=== PATIENT | female | born 1995 | race Caucasian/White ===

== ENCOUNTER 2023-10-29 07:30 | Inpatient (IN) ==
--- OUTSIDE RECORDS SUMMARY | 2023-10-29 07:37 | External Medical Summary | Summary of Care ---
Author Name Unknown Organization [facility] Address [address] [place] [address] Phone [phone] Care Team Providers Care Edger Tailer Name Role Phone Wilmer Jones MD Primary Care Provider +1- [phone] Encounter Details Date Type Department Care Team (Late st Contact Info) Description 10/21/2023 Refill Gynecology/Obstetrics [facility] [address] [place], [place] [id number] Chantale Cowart MD [address] [facility] [place] [address] Allergies Active Allergy Reactions Criticality Noted Date Comments Morphine Hives 07/14/2023 documented as of this encounter (statuses as of 10/21/2023) Medications Medication Sig Dispensed Refills Start Date End Date Status Aspirin 81 MG Oral Tablet Delayed Release (Aspirin 81) Take 1 Tablet by mouth in the morning. 0 Active Famotidine 20 MG Oral Tablet (Pepcid) Take 1 Tablet by mouth in the morning and 1 Tablet before bedtime. 0 Active Calcium Carbonate Antacid 500 MG Oral Tablet Chewable (Tums) Take 1 Tablet by mouth in the morning. 0 Active Adult Gummy/DHA/FA 0.4-25 MG Oral Tablet Chewable Take by mouth. 0 Active Breast PumpIndications:[place] st feeding status of mother BREAST FEEDING STATUS OF MOTHER Z39.1 AMANDA 11/12/23 1 Each 0 08/25/2023 Active Bsfasactyi-KQLB-Zdzj -Cod 94-638-86-30 MG Oral Capsule (Fioricet/Codeine) Take 30 mg of opiate by mouth as needed for Headache. 10 Capsule 0 10/21/2023 Active documented as of this encounter (statuses as of 10/21/2023) Active Problems Problem Noted Date Diagnosed Date GBS (group B streptococcus) infection 10/20/2023 Gestational proteinuria, antepartum 10/10/2023 Estimated Date of Delivery Comme nts Yes 11/12/2023 Based on last me nstrual period of 02/05/2023 (Exact Date) documented as of this encounter (statuses as of 10/21/2023) Immunizations Name Administration Dates Next Due TDAP (age 10 and older)(Boostrix) 08/25/2023 documented as of this encounter Social History Tobacco Use Types Packs/Day Years Used Date Smoking Tobacco: Never Smokeless Tobacco: Never Alcohol Use Standard Drinks/Week Comments Not Currently 0 (1 standard drink = 0.6 oz pur e alcohol) Hunger Vital Sign Answer Date Recorded Within the past 12 months, y ou worried that your food would run out before you got the money to buy more. Never true 07/10/20 23 Within the past 12 months, t he food you bought just didn't last and you didn't have money to get more. Never true 07/10/2023 [place] Depression Scale Answer Date Recorded [place] Depression Scale Total 2 10/10/2023 The thought of harming myself has occurred to me . Never 10/10/2023 Estimated Date of Delivery Comme nts Yes 11/12/2023 Based on last me nstrual period of 02/05/2023 (Exact Date) Sex and Gender Information Value Date Recorded Sex Assigned at Female 07/10/2023 2:56 PM EDT Gender Identity Female 07/10/2023 2:56 PM EDT Sexual Orientation Straight 07/10/2023 2: 56 PM EDT Job Start Date Occupation Industry Not on file Not on file Not on file documented as of this encounter Miscellaneous Notes * Addendum Note - Yesica Olson RN - 10/21/2023 2:20 PM ESTAddended by: YESICA OLSON on: 10/21/2023 02:20 PM Modules accepted: Orders * Telephone Encounter - Yesica Olson RN - 10/21/2023 2:18 PM EST T/C from pt. Tried to pick up worker her rx and her pharmacy does not have this rx in stock. Pt requestingto have the rx sent to [facility] in [place]. Pharmacy updated. Dr. Cowart, please send new rx to [facility] in [place] if agreeable. * Telephone Encounter - Yesica Olson RN - 10/21/2023 9:55 AM EST T/C to pt. Aware of rx and instructions. * Telephone Encounter - Chantale Cowart MD - 10/21/2023 9:11 AM EST [facility] pres to [facility] for Fioricet, please tell the pt to take as needed. * Telephone Encounter - Yesica Olson RN - 10/21/2023 9:02 AM EST T/C from pt reporting BAUGH for the last 4 days. Has taken tylenol 500mg x two doses. Last dose was last evening at 7pm. Denies visual disturbances, edema or epigastric pain. Reports being well hydrated and drinking water. Denies hx of migraines. Reports feeling well rested. BP 138/87 this am. BP 124/82 on Friday. Advised pt on appropriate tylenol dosing. Advised pt to take Tylenol 1000mg with a large glass of water and to have a drink with caffeine. Dr. Cowart, please review and advise. documented in this encounter Plan of Treatment Upcoming Encounters Date Type Department Care Team (Late st Contact Info) Description 10/23/2023 11:30 AM EST Office Visit Gynecology/Obstetrics [address] [address] Melissa Wynn PA-C [address] [place] [address] 10/28/2023 2:30 PM EST [facility] [address] [address] Batool Drake PA-C [address] [place] [address] 11/04/2023 1:00 PM EST Office Visit Gynecology/Obstetrics [address] [place] [address] Batool Drake PA-C [address] [place] [address] 11/10/2023 11:45 AM EST [facility] [address] [place] [address] Melissa Wynn PA-C [address] [place] [address] [place] [address] Health Maintenance Due Date Last Done Comments Hepatitis B (1 of 3 - 3-dose series) 1997 COVID-19 Vaccine (#1) 1997 GARDASIL-HPV IMMUNIZATION SERIES (1 - 2-dose series) 2008 Depression Screening 2009 Hepatitis C Screening 2015 Influenza Vaccine (FLU shot) (#1) 2023 Pap Smear 04/18/2026 04/18/2023 DTaP,Tdap,and Td Vaccines (3 - Td or Tdap) 08/25/2033 08/25/2023, 06/12/2016 HIV Screening Completed 05/08/2023 MENINGOCOCCAL (MENACTRA/MENVEO) Aged Out No longer eligible b ased on patient's age to complete this topic Pneumococcal Vaccine: Pediatrics (0 to 5 Years) and At-Risk Patients (6 to 64 Years) Aged Out No longer eligible b ased on patient's age to complete this topic documented as of this encounter Medical Devices Not on filedocumented as of this encounter Care Teams Edger Tailer Relationship Specialty Start Date End Date Wilmer Jones MD [address] [id number] PCP - General Family Medicine 06/27/23 documented as of this encounter
--- OUTSIDE RECORDS SUMMARY | 2023-10-29 07:37 | External Medical Summary | Summary of Care ---
Author Name Unknown Organization [facility] Address [address] [place] [place] [address] Phone [phone] Care Team Providers Care Radiology Manager Name Role Phone Wilmer Jones MD Primary Care Provider +1- [phone] Encounter Details Date Type Department Care Team (Late st Contact Info) Description 10/24/2023 Orders Only Gynecology/Obstetrics [facility] [address] [place] [address] Melissa Wynn PA-C [address] [place], [place] [phone] Allergies Active Allergy Reactions Criticality Noted Date Comments Morphine Hives 07/14/2023 documented as of this encounter (statuses as of 10/28/2023) Medications Medication Sig Dispensed Refills Start Date [...] Chewable Take by mouth. 0 Active Breast PumpIndications:[place] st feeding status of mother BREAST FEEDING STATUS OF MOTHER Z39.1 AMANDA 11/12/23 1 Each 0 08/25/2023 Active Ceybrmmhny-PIGC-Ztgo -Cod 37-704-37-30 MG Oral Capsule (Fioricet/Codeine) Take 30 mg of opiate by mouth as needed for Headache. 10 Capsule 0 10/21/2023 Active documented as of this encounter (statuses as of 10/28/2023) Active Problems Problem Noted Date Diagnosed Date GBS (group B streptococcus) infection 10/20/2023 Gestational proteinuria, antepartum 10/10/2023 Estimated Date of Delivery Comme nts Yes 11/12/2023 Based on last me nstrual period of 02/05/2023 (Exact Date) documented as of this encounter (statuses as of 10/28/2023) Immunizations Name Administration Dates Next Due TDAP [...] money to get more. Never true 07/10/2023 [place] Depression Scale Answer Date Recorded [place] Depression Scale Total 2 10/10/2023 The thought [...] on file documented as of this encounter Plan of Treatment Upcoming Encounters Date Type Department Care Team (Late st Contact Info) Description 10/28/2023 2:30 PM EST Office Visit Gynecology/Obstetrics [facility] [address] [place] [address] Batool Drake PA-C [address] [place] [address] 11/04/2023 1:00 PM EST Office Visit Gynecology/Obstetrics [facility] [address] [facility] [address] Batool Drake PA-C [address] [place] [address] Health Maintenance Due Date Last Done Comments [...] Not on filedocumented as of this encounter Procedures Procedure Name Priority Date/Time Associated Diagnosis Comments CHEMISTRY-OUTSIDE Routine 10/24/2023 documented in this encounter Results * (ABNORMAL) CHEMISTRY-OUTSIDE (10/24/2023) Not all results display below - see scan for full detail OUTSIDE LAB (SEE SCANNED REPORT) Comment:SEE SCAN, CBCD, CMP, URPCR CREATININE-OUTSID E LAB 0.54(L) 0.61 - 1.2 MG/DL OUTSIDE LAB (SEE SCANNED REPORT) EGFR-OUTSIDE LAB 130.2 ML/MIN/1.7 2M2 OUTSIDE LAB (SEE SCANNED REPORT) POTASSIUM-OUTSIDE LAB 3.9 3.5 - 5.1 MMOL/L OUTSIDE LAB (SEE SCANNED REPORT) GLUCOSE-OUTSIDE LAB 84 70 - 99 MG/DL OUTSIDE LAB (SEE SCANNED REPORT) HOURS FASTING OUTSID E LAB (SEE SCANNED REPORT) TRIGLYCERIDES-OUT SIDE LAB OUTSIDE LAB (SEE SCANNED REPORT) CHOLESTEROL-OUTSI DE LAB OUTSIDE LAB (SEE SCANNED REPORT) HDL-OUTSIDE LAB OUTS JAYLEN LAB (SEE SCANNED REPORT) CHOL/HDL RATIO-OUTSIDE LAB OUTSIDE LA B (SEE SCANNED REPORT) LDL (CALCULATED)-OUTS JAYLEN LAB OUTSIDE LAB (SEE SCANNED REPORT) LDL (DIRECT MEASURE)-OUTSIDE LAB OUTSIDE LAB (SEE SCANNED REPORT) HEMOGLOBIN, R3T-BGJEDUL LAB OUTSIDE LAB (SEE SCANNED REPORT) PHOSPHORUS-OUTSID E LAB OUTSIDE LAB (SEE SCANNED REPORT) PTH-OUTSIDE LAB OUTS JAYLEN LAB (SEE SCANNED REPORT) MICROALBUMIN RATIO-OUTSIDE LAB OUTSIDE LA B (SEE SCANNED REPORT) PROTEIN, UA-OUTSIDE LAB OUTSIDE LAB (SEE SCANNED REPORT) HEMOGLOBIN-OUTSID E LAB 11.6(L) 12.0 - 16.0 G/DL OUTSIDE LAB (SEE SCANNED REPORT) 10/24/2023 Vasu Hayden MD LABORATORY OUTSIDE LAB (SEE SCANNED REPORT) documented in this encounter Care Teams Radiology Manager Relationship Specialty Start Date End Date Wilmer Jones MD [address] [place] [id number] PCP - General Family Medicine 06/27/23 documented as of this encounter
--- OUTSIDE RECORDS SUMMARY | 2023-10-29 07:37 | External Medical Summary | Summary of Care ---
Author Name Unknown Organization [facility] Address [address] [place] [address] Phone [phone] Care Team Providers Care Turret Lathe Tender Name Role Phone Wilmer Jones MD Primary Care Provider +1- [phone] Encounter Details Date Type Department Care Team (Late st Contact Info) Description 10/21/2023 Telephone Gynecology/Obstetrics [facility] [address] [place] [address] Alma Lawrence, [facility] [address] [place] [address] Allergies Active Allergy Reactions Criticality Noted Date [...] Chewable Take by mouth. 0 Active Breast PumpIndications:[place] st feeding status of mother BREAST FEEDING STATUS OF MOTHER Z39.1 AMANDA 11/12/23 1 Each 0 08/25/2023 Active Ibznukpmxj-GXRA-Bisv -Cod 79-585-67-30 MG Oral Capsule (Fioricet/Codeine) Take 30 mg [...] money to get more. Never true 07/10/2023 [place] Depression Scale Answer Date Recorded [place] Depression Scale Total 2 10/10/2023 The thought [...] as of this encounter Miscellaneous Notes * Telephone Encounter - Jesus Jenkins RN - 10/21/2023 10:23 AM EST T/C to patient, patient aware and verbalizes understanding Jesus Jenkins, RN * Telephone Encounter - Jesus Jenkins RN - 10/21/2023 10:22 AM EST ----- Message from Alma Lawrence CNM sent at 10/20/2023 7:11 AM EST ----- Covering for Batool. Please let patient know her recent GBS swab was positive. We recommend IV antibiotics in labor. Thanks! Alma Lawrence CNM documented in this encounter Plan of Treatment Upcoming Encounters Date Type Department Care Team (Late st Contact Info) Description 10/23/2023 11:30 AM EST Office Visit [address] [address] Melissa Wynn PA-C [address] [place] [address] 10/28/2023 2:30 PM EST [address] [address] Batool Drake PA-C [address] [place] [address] 11/04/2023 1:00 PM EST [address] [address] Batool Drake PA-C [address] [place] [address] [place] [address] 11/10/2023 11:45 AM EST Office Visit [address] [place] [address] Melissa Wynn PA-C [address] [place] [address] Health Maintenance Due Date Last Done Comments [...] filedocumented as of this encounter Care Teams Turret Lathe Tender Relationship Specialty Start Date End Date Wilmer Jones MD [address] [place] [id number] PCP - General Family Medicine 06/27/23 documented as of this encounter
--- OUTSIDE RECORDS SUMMARY | 2023-10-29 07:37 | External Medical Summary | Summary of Care ---
Author Name Unknown Organization [facility] Address [address] [place] [address] Phone [phone] Care Team Providers Care Fashion Patternmaker Name Role Phone Wilmer Jones MD Primary Care Provider +1- [phone] Encounter Details Date Type Department Care Team (Late st Contact Info) Description 10/21/2023 Telephone Gynecology/Obstetrics [facility] [address] [place] [address] Alma Lawrence, [facility] [address] [place] [address] Allergies Active Allergy Reactions Criticality [...] Chewable Take by mouth. 0 Active Breast PumpIndications:[place] st feeding status of mother BREAST FEEDING STATUS OF MOTHER Z39.1 AMANDA 11/12/23 1 Each 0 08/25/2023 Active Genuwgmtyx-BLPG-Lthi -Cod 64-902-38-30 MG Oral Capsule (Fioricet/Codeine) Take 30 mg [...] money to get more. Never true 07/10/2023 [place] Depression Scale Answer Date Recorded [place] Depression Scale Total 2 10/10/2023 The thought [...] Description 10/23/2023 11:30 AM EST Office Visit [address] [address] Melissa Wynn PA-C [address] [place] [address] 10/28/2023 2:30 PM EST [address] [address] Batool Drake PA-C [address] [place] [address] 11/04/2023 1:00 PM EST Office [address] [address] Batool Drake PA-C [address] [place] [address] [place] [address] 11/10/2023 11:45 AM EST Office Visit [address] [place] [address] Melissa Wynn PA-C [address] [place] [address] Health Maintenance Due Date Last Done Comments [...] filedocumented as of this encounter Care Teams Fashion Patternmaker Relationship Specialty Start Date End Date Wilmer Jones MD [address] [place] [id number] PCP - General Family Medicine 06/27/23 documented as of this encounter
--- OUTSIDE RECORDS SUMMARY | 2023-10-29 07:37 | External Medical Summary ---
Author Name Unknown Address Unknown Organization K01:[facility] [address] [facility] [address] Laboratory Report Ordering Provider Test Date Status NICOLE MOURA 10/13/2023 10:18:34 Final Observation Date Value Abnormality Reference (Units ) Status Creatinine [Moles/volume] in 24 hour Urine 10/13/2023 10:18:34 110 (mg/dL) Final Urine Volume 10/13/2023 10:18:34 1900 (mL) Final Creatinine [Moles/volume] in 24 hour Urine 10/13/2023 10:18:34 2.090 Above high normal 0.800-1.800 (g/24 hours) Final Performing Location [facility] [place] [place] [address] [place] [address]
--- OUTSIDE RECORDS SUMMARY | 2023-10-29 07:37 | External Medical Summary | Summary of Care ---
Author Name Unknown Organization [facility] Address [address] [place] [address] Phone [phone] Care Team Providers Care Mechanical Apprentice Name Role Phone Wilmer Jones MD Primary Care Provider +1- [phone] Reason for Visit * Reason Comments Return Visit 37w1d Encounter Details Date Type Department Care Team (Late st Contact Info) Description 10/23/2023 11:30 AM EST Office Visit Gynecology/Obstetric s [facility] [address] [place], [place] [phone] Melissa Wynn PA-C [address] [place], [place] [phone] 37 weeks gestation of *; GBS (group B streptococcus) infection; headache in third trimester Allergies Active Allergy Reactions Criticality Noted Date Comments Morphine Hives 07/14/2023 documented as of this encounter (statuses as of 10/23/2023) Medications Medication Sig Dispensed Refills Start Date [...] Chewable Take by mouth. 0 Active Breast PumpIndications:[place] st feeding status of mother BREAST FEEDING STATUS OF MOTHER Z39.1 AMANDA 11/12/23 1 Each 0 08/25/2023 Active Abdxvxhytk-PUER-Mzrg -Cod 54-037-81-30 MG Oral Capsule (Fioricet/Codeine) Take 30 mg of opiate by mouth as needed for Headache. 10 Capsule 0 10/21/2023 Active documented as of this encounter (statuses as of 10/23/2023) Active Problems Problem Noted Date Diagnosed Date GBS (group B streptococcus) infection 10/20/2023 Gestational proteinuria, antepartum 10/10/2023 Estimated Date of Delivery Comme nts Yes 11/12/2023 Based on last me nstrual period of 02/05/2023 (Exact Date) documented as of this encounter (statuses as of 10/23/2023) Immunizations Name Administration Dates Next Due TDAP [...] money to get more. Never true 07/10/2023 [place] Depression Scale Answer Date Recorded [place] Depression Scale Total 2 10/10/2023 The thought [...] on file documented as of this encounter Last Filed Vital Signs Vital Sign Reading Time Taken Comments Blood Pressure 130/86 10/23/2023 11:39 AM EST Pulse - - Temperature 36.5 C (97.7 F) 10/23/2023 1 1:39 AM EST Respiratory Rate - - Oxygen Saturation - - Inhaled Oxygen Concentration - - Weight 114.9 kg (253 lb 6.4 oz) 023 11:39 AM EST Height - - Body Mass Index 39.69 07/14/2023 9:45 AM EDT documented in this encounter Progress Notes * Melissa Wynn PA-C - 10/23/2023 11:31 AM EST Nicola Mejia is a 28 year old female here for her routine OB appointment at 37w1d Her Estimated Date of Delivery: 11/12/23 REVIEW OF SYSTEMS: She affirms movement. Denies vaginal bleeding, LOF, contractions, N/V. Did have headaches starting on 10/17 - called and spoke with sale professional digital marketing provider on 10/21, prescribed Fioricet but has not taken it. Seems better now - was gone yesterday, dull today. Did take tylenol for the headache. Has been monitoring BP at home. Highest BP was 138/89 on Friday AM. She reports that vision was affected - had black floaters, and vision seemed to be more blurred. This has since resolved. She is also having upper back pain. Discussed last week at visit, started a few days prior to last visit. Pain starts at random in her mid back and wraps around to both sides. Stomach gets hard when it happens. Happening daily, but not regular or timeable. Pain lasts for a few minutes and then eases off. Pain is not positional. Not associated with eating or drinking. PHYSICAL EXAM: Filed Vitals: 10/23/23 1139 BP: 130/86 Temp: 36.5 C (97.7 F) Weight: 114.9 kg (253 lb 6.4 oz) +FHT 130s Fundal height 38 CE: 0/0/-3 Second Shift Supervisor Documentation Patient offered seismograph helper and accepted. Name of seismograph helper: Monica Lopez PA-C ASSESSMENT/PLAN: 37 weeks gestation of (Primary) GBS (group B streptococcus) infection headache in third trimester - URINALYSIS OBSTETRICS, POINT OF CARE - PROTEIN/ CREATININE RATIO, URINE - PLT; Future; Expected date: 10/23/2023 - COMPREHENSIVE METABOLIC PANEL Supervision of - labor precautions and kick counts reviewed - RTO in 1 week Melissa Wynn PA-C documented in this encounter Nursing Notes * Janelle Bryant RN - 10/23/2023 11:34 AM EST Chief Complaint Patient presents with Return Visit 37w1d Pt had a headache that began 10/18 and lasted for four days. Pt reports it still feels like "a dullache but is ever so slight". Pt took BP at home 138/89 on 10/21 Pt had called in on 10/21 about headache and was sent a script for Fioricet/codeine but pt was anxious to take it. Janelle Byrant RN documented in this encounter Plan of Treatment Upcoming Encounters Date Type Department Care Team (Late st Contact Info) Description 10/28/2023 2:30 PM EST Office Visit Gynecology/Obstetrics [address] [address] Batool Drake PA-C [address] [place] [address] [place] [address] 11/04/2023 1:00 PM EST Office Visit Gynecology/Obstetrics [address] [place] [address] Batool Drake PA-C [address] [place], [place] [address] [address] 11/10/2023 11:45 AM EST Office Visit Gynecology/Obstetrics [address] [place] [address] Melissa Wynn PA-C [address] [place], [place] [address] [address] Pending Results Name Type Priority Associated Diagnoses Date /Time PROTEIN/ CREATININE RATIO, URINE Lab Routine headache in third trimester 10/23/2023 5:28 PM EST PLT Lab Routine headache in third trimester 10/23/2023 12:23 PM EST COMPREHENSIVE METABOLIC PANEL Lab Routine headache in third trimester 10/23/2023 12:23 PM EST Scheduled Orders Name Type Priority Associated Diagnoses Orde r Schedule PLT Lab Routine headache in third trimester Expected: 10/23/2023, Expires: 10/23/2024 Health Maintenance Due Date Last Done Comments [...] Procedure Name Priority Date/Time Associated Diagnosis Comments URINALYSIS OBSTETRICS, POINT OF CARE Routine 10/23/2023 11:49 AM EST headache in third trimester documented in this encounter Results * (ABNORMAL) URINALYSIS OBSTETRICS, POINT OF CARE (10/23/2023 11:49 AM EST) Color, Urine Yellow Light Yellow, Yellow 10/23/2023 11:53 AM EST [facility] Clarity, Urine Slightly Cloudy(A) Clear 10/23/2023 11:53 AM [facility] Glucose, Urine Negative Negative mg/dL 10/23/2023 11:53 AM [facility] Bilirubin, Urine Negative Negative 10/23/2023 11:53 AM [facility] Ketone, Urine Negative Negative mg/dL 10/23/2023 11:53 AM [facility] Specific [place], Urine >=1.030 1.003 - 1.030 10/23/2023 11:53 AM [facility] Blood, Urine Moderate(A) Negative 10/23/2023 11:53 AM [facility] pH, Urine 6.0 5.0, 5.5, 6.0, 6.5, 7.0, 7.5 units 10/23/2023 11:53 AM [facility] Protein, Urine >=300(A) Negative mg/dL 10/23/2023 11:53 AM [facility] Urobilinogen, Urine 0.2 0.2, 1.0 mg/dL 10/23/2023 11:53 AM [facility] Nitrite, Urine Negative Negative 10/23/2023 11:53 AM [facility] Esterase, Urine Negative Negative 10/23/2023 11:53 AM [facility] Urine 10/23/2023 11:4 9 AM EST 10/23/2023 11:53 AM EST Melissa Wynn PA-C LAB POINT OF CARE TEST DOCKED DEVICE UNSOLICITED RESULTS [facility] [address] [facility] [place] [address] documented in this encounter Visit Diagnoses Diagnosis 37 weeks gestation of - Primary state, incidental GBS (group B streptococcus) infection Streptococcus infection in conditions classified elsewhere and of unspecified site, group B headache in third trimester documented in this encounter Care Teams Mechanical Apprentice Relationship Specialty Start Date End Date Wilmer Jones MD [facility] [place] [address] [place] [address] PCP - General Family Medicine 06/27/23 documented as of this encounter
--- OUTSIDE RECORDS SUMMARY | 2023-10-29 07:37 | External Medical Summary ---
Author Name Unknown Address Unknown Organization K01:LAB[facility]ATORY [facility] - [address] [place] [address] Laboratory Report Ordering Provider Test Date Status FELIBERTO AGUILAR 10/23/2023 12:23:30 Final Observation Date Value Abnormality Reference (Units ) Status Platelets 10/23/2023 12:23:30 347 140-400 (K /uL) Final Performing Location [facility] [address] [facility] [address] [place] [address]
--- OUTSIDE RECORDS SUMMARY | 2023-10-29 07:37 | External Medical Summary ---
Author Name Unknown Address Unknown Organization : Laboratory Report Ordering Provider Test Date Status NICOLE MOURA 10/28/2023 14:45:00 Final Observation Date Value Abnormality Reference (Units ) Status Color of Urine by Auto 10/28/2023 14:45:00 Yellow Light Yellow, Yellow Final Clarity, Urine 10/28/2023 14:45:00 Clear Clear Final Glucose [Mass/volume] in Urine by Automated test strip 10/28/2023 14:45:00 Negative Negative (mg/dL) Final Bilirubin.total [Presence] in Urine by Automated test strip 10/28/2023 14:45:00 Negative Negative Final Ketones [Mass/volume] in Urine by Automated test strip 10/28/2023 14:45:00 Negative Negative (mg/dL) Final Specific gravity, Urine 10/28/2023 14:45:00 1.025 1.003-1.030 Final Hemoglobin [Presence] in Urine by Automated test strip 10/28/2023 14:45:00 Small Abnormal Negative Final pH, Urine 10/28/2023 14:45:00 7.0 5.0, 5.5, 6.0, 6.5, 7.0, 7.5 (units) Final Protein [Mass/volume] in Urine by Automated test strip 10/28/2023 14:45:00 30 Abnormal Negative (mg/dL) Final Urobilinogen, Urine 10/28/2023 14:45:00 0.2 0.2, 1.0 (mg/dL) Final Nitrite [Presence] in Urine by Automated test strip 10/28/2023 14:45:00 Negative Negative Final Leukocyte esterase [Presence] in Urine by Automated test strip 10/28/2023 14:45:00 Trace Abnormal Negative Final Performing Location
--- OUTSIDE RECORDS SUMMARY | 2023-10-29 07:37 | External Medical Summary | Summary of Care ---
Author Name Unknown Organization [facility] Address [address] [place] [address] Phone [phone] Care Team Providers Care High [employer] Home Economics Teacher Name Role Phone Wilmer Jones MD Primary Care Provider +1- [phone] Reason for Visit * Reason Comments Non Stress Test Return Visit 37w 6d Encounter Details Date Type Department Care Team (Late st Contact Info) Description 10/28/2023 2:00 PM EST Office Visit Gynecology/Obstetric s [facility] [address] [place] [address] Batool Drake PA-C [address] [place], [place] [phone] Chancellor, Non Stress Test [address] [place], [place] [phone] 37 weeks gestation of *; GBS (group B streptococcus) infection; Gestational proteinuria, antepartum Allergies Active Allergy Reactions Criticality Noted Date [...] Chewable Take by mouth. 0 Active Breast PumpIndications:[place] st feeding status of mother BREAST FEEDING STATUS OF MOTHER Z39.1 AMANDA 11/12/23 1 Each 0 08/25/2023 Active Etzzbmjhfp-VWQI-Csiq -Cod 95-619-26-30 MG Oral Capsule (Fioricet/Codeine) Take 30 mg [...] money to get more. Never true 07/10/2023 Etlan Depression Scale Answer Date Recorded Etlan Depression Scale Total 2 10/10/2023 The thought [...] Sign Reading Time Taken Comments Blood Pressure 132/92 10/28/2023 2:16 PM EST Pulse - - Temperature 36.8 C (98.2 F) 10/28/2023 2:16 PM ES T Respiratory Rate - - Oxygen Saturation - - Inhaled Oxygen Concentration - - Weight 115.9 kg (255 lb 9.6 oz) 10/28/2023 2:16 PM EST Height - - Body Mass Index 40.03 07/14/2023 9:45 AM EDT documented in this encounter Progress Notes * Batool Drake PA-C - 10/28/2023 2:27 PM EST Images from the original note were not included. Nicola Mejia is a 28 year old who presents today at 37w6d with a Estimated Date of Delivery: 11/12/23 for assessment with NST for indication of gestational proteinuria heart baseline: 145 bpm Variability: Moderate Decelerations: absent Accelerations: present Contractions: None NST start time: 1402 NST stop time: 1440 NST strip reviewed, interpreted, and approved by OB provider, Batool Drake PA-C. NST strip stored in clinic storage file REVIEW OF SYSTEMS: She affirms movement. Denies vaginal bleeding, LOF, contractions, N/V, headaches Was seen on L&D at [facility] on 10/23/2023 for elevated PCR ratio, Notes last BAUGH was Friday, denies symptoms today Is scheduled for induction tomorrow at [facility] Filed Vitals: 10/28/23 1416 BP: 132/92 Temp: 36.8 C (98.2 F) Weight: 115.9 kg (255 lb 9.6 oz) Results URINALYSIS OBSTETRICS, POINT OF CARE [[id number]] (Order [id number]) Result Information Flag: Abnormal Abnormal Status: Final result (Resulted: 10/28/2023 14:48) Provider Status: Open Contains abnormal data URINALYSIS OBSTETRICS, POINT OF CARE Order: [id number] Status: Final result Visible to patient: Yes (not seen) Next appt: 11/04/2023 at 01:00 PM in *EXEC. CREATIVE DIRECTOR/OB* (Batool Drake PA-C) Dx: Gestational proteinuria, antepartum 0 Result Notes Component Ref Range & Units 14:45 5 d ago 2 wk ago Color, Urine Light Yellow, Yellow Yellow Yellow Yellow Clarity, Urine Clear Clear Slightly Cloudy Abnormal Clear Glucose, Urine Negative mg/dL Negative Negative Negative Bilirubin, Urine Negative Negative Negative Negative Ketone, Urine Negative mg/dL Negative Negative Negative Specific [place], Urine 1.003 - 1.030 1.025 >=1.030 >=1.030 Blood, Urine Negative Small Abnormal Moderate Abnormal Moderate Abnormal pH, Urine 5.0, 5.5, 6.0, 6.5, 7.0, 7.5 units 7.0 6.0 6.0 Protein, Urine Negative mg/dL 30 Abnormal >=300 Abnormal 100 Abnormal Urobilinogen, Urine 0.2, 1.0 mg/dL 0.2 0.2 0.2 Nitrite, Urine Negative Negative Negative Negative Esterase, Urine Negative Trace Abnormal Negative Negative Resulting Agency [facility] We discussed and reviewed the known complications and reviewed the plans as follows 1. GBS (group B streptococcus) infection 2. Gestational proteinuria, antepartum 3. 37 weeks gestation of Advised when to call: Vaginal bleeding, leaking of fluid, regular contractions every five minutes for at least an hour, decreased movement, any other questions or concerns. Reviewed [facility] IOL tomorrow morning at [facility] at 7 AM , given PEC signs/warning and when to call Batool Drake PA-C documented in this encounter Nursing Notes * Jesus Jenkins RN - 10/28/2023 2:16 PM EST Chief Complaint Patient presents with Non Stress Test Return Visit 37w 6d documented in this encounter Plan of Treatment Health Maintenance Due Date Last Done Comments [...] Comments URINALYSIS OBSTETRICS, POINT OF CARE Routine 10/28/2023 2:45 PM EST Gestational proteinuria, antepartum documented in this encounter Results * (ABNORMAL) URINALYSIS OBSTETRICS, POINT OF CARE (10/28/2023 2:45 PM EST) Color, Urine Yellow Light Yellow, Yellow 10/28/2023 2:48 PM [facility] Clarity, Urine Clear Clear 10/28/2023 2:48 PM [facility] Glucose, Urine Negative Negative mg/dL 10/28/2023 2:48 PM [facility] Bilirubin, Urine Negative Negative 10/28/2023 2:48 PM [facility] Ketone, Urine Negative Negative mg/dL 10/28/2023 2:48 PM [facility] Specific [place], Urine 1.025 1.003 - 1.030 10/28/2023 2:48 PM [facility] Blood, Urine Small(A) Negative 10/28/2023 2:48 PM [facility] pH, Urine 7.0 5.0, 5.5, 6.0, 6.5, 7.0, 7.5 units 10/28/2023 2:48 PM EST [facility] Protein, Urine 30(A) Negative mg/dL 10/28/2023 2:48 PM EST [facility] Urobilinogen, Urine 0.2 0.2, 1.0 mg/dL 10/28/2023 2:48 PM EST [facility] Nitrite, Urine Negative Negative 10/28/2023 2:48 PM EST [facility] Esterase, Urine Trace(A) Negative 10/28/2023 2:48 PM EST [facility] Urine 10/28/2023 2:45 PM EST 10/28/2023 2:48 PM EST Batool Drake PA-C LAB POINT OF C ARE TEST DOCKED DEVICE UNSOLICITED RESULTS [facility] [address] [facility] [place] [address] documented in this encounter Visit Diagnoses Diagnosis 37 weeks gestation of - Primary state, incidental GBS (group B streptococcus) infection Streptococcus infection in conditions classified elsewhere and of unspecified site, group B Gestational proteinuria, antepartum Unspecified antepartum renal disease documented in this encounter Care Teams High [employer] Home Economics Teacher Relationship Specialty Start Date End Date Wilmer Jones MD [address] [place] [address] PCP - General Family Medicine 06/27/23 documented as of this encounter
--- OUTSIDE RECORDS SUMMARY | 2023-10-29 07:37 | External Medical Summary | Summary of Care ---
Author Name Unknown Organization [facility] Address [address] [facility] [place] [address] Phone [phone] Care Team Providers Care Dethistler Operator Name Role Phone Wilmer Jones MD Primary Care Provider +1- [phone] Encounter Details Date Type Department Care Team (Late st Contact Info) Description 10/24/2023 Telephone Gynecology/Obstetrics [facility] [address] [place] [address] Melissa Wynn PA-C [address] [place], [place] [phone] Allergies Active Allergy Reactions Criticality Noted Date Comments Morphine Hives 07/14/2023 documented as of this encounter (statuses as of 10/24/2023) Medications Medication Sig Dispensed Refills Start Date [...] AMANDA 11/12/23 1 Each 0 08/25/2023 Active Mnzggsiifs-ADVV-Sazs -Cod 45-160-03-30 MG Oral Capsule (Fioricet/Codeine) Take 30 mg of opiate by mouth as needed for Headache. 10 Capsule 0 10/21/2023 Active documented as of this encounter (statuses as of 10/24/2023) Active Problems Problem Noted Date Diagnosed Date GBS (group B streptococcus) infection 10/20/2023 Gestational proteinuria, antepartum 10/10/2023 Estimated Date of Delivery Comme nts Yes 11/12/2023 Based on last me nstrual period of 02/05/2023 (Exact Date) documented as of this encounter (statuses as of 10/24/2023) Immunizations Name Administration Dates Next Due TDAP [...] money to get more. Never true 07/10/2023 Norton Depression Scale Answer Date Recorded Norton Depression Scale Total 2 10/10/2023 The thought [...] encounter Miscellaneous Notes * Telephone Encounter - Anya Garcia RN - 10/24/2023 10:[address] Hayden aware. Kim at L&D aware. Pt aware to report to [facility]. * Telephone Encounter - Anya Garcia RN - 10/24/2023 10:10 AM EST Spoke with Dr. Turk. Pt needs evaluated at [facility] is planning delivery there. Should be prepared with her bag incase they keep her. Confirmed with pt that she desires [facility] delivery. Will discuss with Dr. Hayden. * Telephone Encounter - Anya Garcia RN - 10/24/2023 9:54 AM EST Spoke with pt. She is aware. She did have swelling in her feet yesterday. Still slightly today. Shecontinues to have a headache today, unrelieved by tylenol. She states that it was dull yesterday and worse today. Denies any visual changes. No right sided pain. + back pain. Will review with provider and call pt back. * Telephone Encounter - Anya Garcia RN - 10/24/2023 9:52 AM EST ----- Message from Melissa Wynn PA-C sent at 10/24/2023 9:35 AM EST ----- Urine PCR is elevated, reviewed with Dr. Gonzáles and M fellow senior energy consultant. Recommend continuing to monitor BP at home - twice daily per [facility], call with readings > 140/90 or worsening symptoms (BAUGH, vision changes). Will reassess at next visit, sooner if needed. documented in this encounter Plan of Treatment Upcoming Encounters Date Type Department Care Team (Late st Contact Info) Description 10/28/2023 2:30 PM EST Office Visit Gynecology/Obstetrics [facility] [address] [facility] [place] [address] Batool Drake PA-C [address] [place] [address] 11/04/2023 1:00 PM EST Office Visit Gynecology/Obstetrics [facility] [address] [facility] [place] [address] Batool Drake PA-C [address] [facility] [address] Health Maintenance Due Date Last Done Comments [...] filedocumented as of this encounter Care Teams Dethistler Operator Relationship Specialty Start Date End Date Wilmer Jones MD [address] [place] [address] PCP - General Family Medicine 06/27/23 documented as of this encounter
--- OUTSIDE RECORDS SUMMARY | 2023-10-29 07:37 | External Medical Summary ---
Author Name Unknown Address Unknown Organization K01:[facility] [place] [address] [facility] [place] [address] Laboratory Report Ordering Provider Test Date Status FELIBERTO AGUILAR 10/23/2023 12:23:30 Final Observation Date Value Abnormality Reference (Units ) Status BUN 10/23/2023 12:23:30 8 6-20 (mg/dL) Final Creatinine 10/23/2023 12:23:30 0.5 0.5-1.0 (mg/dL) Final Glomerular filtration rate/1.73 sq M.predicted [Volume Rate/Area] in Serum, Plasma or Blood by Creatinine-based formula (CKD-EPI) 10/23/2023 12:23:30 >90 >=60 (mL/min) Final eGFR is calculated based on the CKD-EPI 2020 equation SODIUM 10/23/2023 12:23:30 135 135-146 (m mol/L) Final Potassium 10/23/2023 12:23:30 4.3 3.5-5.1 (m mol/L) Final Cl 10/23/2023 12:23:30 101 98-107 (mm ol/L) Final CO2 10/23/2023 12:23:30 21 Below low normal 22- 32 (mmol/L) Final Anion gap 10/23/2023 12:23:30 13 7-15 (mmol /L) Final Glucose 10/23/2023 12:23:30 100 70-120 (mg /dL) Final Albumin 10/23/2023 12:23:30 3.6 Below low normal 3.8 -5.0 (g/dL) Final AST (Aspartate aminotransferase) 10/23/2023 12:23:30 17 10-35 (U/L) Fin al Result may be falsely elevat ed due to hemolysis. Alk Phos 10/23/2023 12:23:30 120 35-130 (U/ L) Final Bilirubin, Total 10/23/2023 12:23:30 <0.2 <=1 .2 (mg/dL) Final Calcium 10/23/2023 12:23:30 9.7 8.4-10.2 ( mg/dL) Final Protein 10/23/2023 12:23:30 6.6 6.0-8.3 (g /dL) Final ALT (Alanine aminotransferase) 10/23/2023 12:23:30 12 10-35 (U/L) Final Performing Location [facility] [place] [address] [facility] [address]
--- OUTSIDE RECORDS SUMMARY | 2023-10-29 07:37 | External Medical Summary | Summary of Care ---
Author Name Unknown Organization [facility] Address [address] [place] [address] Phone [phone] Care Team Providers Care Hotel Housekeeper Name Role Phone Wilmer Jones MD Primary Care Provider +1- [phone] Reason for Visit * Reason Comments Return Visit 37w1d Encounter Details Date Type Department Care Team (Late st Contact Info) Description 10/23/2023 11:30 AM EST Office Visit Gynecology/Obstetric s [facility] [address] [place], [place] [phone] Melissa Wynn PA-C [address] [place], [place] [phone] 37 weeks gestation of *; GBS (group [...] Chewable Take by mouth. 0 Active Breast PumpIndications:[place] st feeding status of mother BREAST FEEDING STATUS OF MOTHER Z39.1 AMANDA 11/12/23 1 Each 0 08/25/2023 Active Zrtcpvrpdn-DBAX-Rxcm -Cod 83-905-38-30 MG Oral Capsule (Fioricet/Codeine) Take 30 mg [...] money to get more. Never true 07/10/2023 Sharon Depression Scale Answer Date Recorded Sharon Depression Scale Total 2 10/10/2023 The thought [...] on 10/17 - called and spoke with polymerization supervisor provider on 10/21, prescribed Fioricet but has [...] +FHT 130s Fundal height 38 CE: 0/0/-3 Burglar Alarm Inspector Documentation Patient offered repairer evaporator and accepted. Name of repairer evaporator: Monica Lopez PA-C ASSESSMENT/PLAN: 37 weeks gestation [...] pt was anxious to take it. Janelle Bryant RN documented in this encounter Plan of Treatment Upcoming Encounters Date Type Department Care Team (Late st Contact Info) Description 10/28/2023 2:30 PM EST Office Visit Gynecology/Obstetrics [address] [address] Batool Drake PA-C [address] [place] [address] [place] [address] 11/04/2023 1:00 PM EST Office Visit Gynecology/Obstetrics [address] [place] [address] Batool Drake PA-C [address] [place], [place] [address] [address] 11/10/2023 11:45 AM EST Office Visit Gynecology/Obstetrics [address] [place] [address] Melissa Wynn PA-C [address] [place] [address] [place] [address] Scheduled Orders Name Type Priority Associated Diagnoses Orde r Schedule PROTEIN/ CREATININE RATIO, URINE Lab Routine headache in third trimester Ordered: 10/23/2023 PLT Lab Routine headache in third trimester Expected: 10/23/2023, Expires: 10/23/2024 COMPREHENSIVE METABOLIC PANEL Lab Routine headache in third trimester Ordered: 10/23/2023 Health Maintenance Due Date Last Done Comments [...] Light Yellow, Yellow 10/23/2023 11:53 AM EST [facility] Clarity, Urine Slightly Cloudy(A) Clear 10/23/2023 11:53 AM EST [facility] Glucose, Urine Negative Negative mg/dL 10/23/2023 11:53 AM [facility] Bilirubin, Urine Negative Negative 10/23/2023 11:53 AM [facility] Ketone, Urine Negative Negative mg/dL 10/23/2023 11:53 AM [facility] Specific [place], Urine >=1.030 1.003 - 1.030 10/23/2023 11:53 AM [facility] Blood, Urine Moderate(A) Negative 10/23/2023 11:53 AM [facility] pH, Urine 6.0 5.0, 5.5, 6.0, 6.5, 7.0, 7.5 units 10/23/2023 11:53 AM [facility] Protein, Urine >=300(A) Negative mg/dL 10/23/2023 11:53 AM [facility] Urobilinogen, Urine 0.2 0.2, 1.0 mg/dL 10/23/2023 11:53 AM [facility] Nitrite, Urine Negative Negative 10/23/2023 11:53 AM [facility] Esterase, Urine Negative Negative 10/23/2023 11:53 AM [facility] Urine 10/23/2023 11:4 9 AM EST 10/23/2023 11:53 AM EST Melissa Wynn PA-C LAB POINT OF CARE TEST DOCKED DEVICE UNSOLICITED RESULTS [facility] [address] [facility] [place] [address] documented in this encounter Visit Diagnoses Diagnosis 37 weeks gestation of - Primary state, incidental GBS (group B streptococcus) infection Streptococcus infection in conditions classified elsewhere and of unspecified site, group B headache in third trimester documented in this encounter Care Teams Hotel Housekeeper Relationship Specialty Start Date End Date Wilmer Jones MD [address] [place] [address] PCP - General Family Medicine 06/27/23 documented as of this encounter
--- OUTSIDE RECORDS SUMMARY | 2023-10-29 07:37 | External Medical Summary | Summary of Care ---
Author Name Unknown Organization [facility] Address [address] [place] [address] Phone [phone] Care Team Providers Care Health Education Coordinator Name Role Phone Wilmer Jones MD Primary Care Provider +1- [phone] Reason for Visit * Reason Comments Return Visit Encounter Details Date Type Department Care Team (Late st Contact Info) Description 10/17/2023 1:00 PM EST Office Visit Gynecology/Obstetric s [facility] [address] [place] [address] Batool Drake PA-C [address] [place], [place] [phone] 36 weeks gestation of * Allergies Active Allergy Reactions Criticality Noted Date Comments Morphine Hives 07/14/2023 documented as of this encounter (statuses as of 10/17/2023) Medications Medication Sig Dispensed Refills Start Date [...] Chewable Take by mouth. 0 Active Breast PumpIndications:Breast feeding status of mother BREAST FEEDING STATUS OF MOTHER Z39.1 AMANDA 11/12/23 1 Each 0 08/25/2023 Active documented as of this encounter (statuses as of 10/17/2023) Active Problems Problem Noted Date Diagnosed Date Gestational proteinuria, antepartum 10/10/2023 Estimated Date of Delivery Comme nts Yes 11/12/2023 Based on last me nstrual period of 02/05/2023 (Exact Date) documented as of this encounter (statuses as of 10/17/2023) Immunizations Name Administration Dates Next Due TDAP [...] money to get more. Never true 07/10/2023 Bureau Depression Scale Answer Date Recorded Bureau Depression Scale Total 2 10/10/2023 The thought [...] Sign Reading Time Taken Comments Blood Pressure 124/80 10/17/2023 12:43 PM EST Pulse - - Temperature - - Respiratory Rate - - Oxygen Saturation - - Inhaled Oxygen Concentration - - Weight 114.8 kg (253 lb) 10/17/2023 12:43 PM EST Height - - Body Mass Index 39.63 07/14/2023 9:45 AM EDT documented in this encounter Progress Notes * Batool Drake PA-C - 10/17/2023 1:01 PM EST Nicola Mejia is a 28 year old female here for her routine OB appointment at 36w2d. Her Estimated Date of Delivery: 11/12/23 REVIEW OF SYSTEMS: She affirms movement. Denies vaginal bleeding, LOF, contractions, N/V, headaches Headache yesterday, tylenol helped some. Reports her BP was 132/78 She is struggling with anxiety, her Sister in law lost term baby at 37 weeks a couple of months ago. Has family support, usually distresses by sitting in silence. Offered counseling support. PHYSICAL EXAM: Filed Vitals: 10/17/23 1243 BP: 124/80 Weight: 114.8 kg (253 lb) Sawmilling Operator Documentation Provider requested natural resources engineer. Name of natural resources engineer: Monica Lopez PAC for GBS swab ASSESSMENT/PLAN: Supervision of - GBS swab collected today - Reviewed labor precautions,loss of fluid, vaginal bleeding, round ligament pain, and encouraged hydration. Reviewed [facility] - RTO in 1 week Batool Drake PA-C * Elizabeth Tom LPN - 10/17/2023 12:43 PM EST Pt is currently 36w2d with an Estimated Date of Delivery: 11/12/23 - Has been check BP at home, had headache yesterday and noted to be elevated around 132/84 yesterday when she checked. documented in this encounter Plan of Treatment Upcoming Encounters Date Type Department Care Team (Late st Contact Info) Description 10/23/2023 11:30 AM EST Office Visit Gynecology/Obstetrics [facility] [address] [address] Melissa Wynn PA-C [address] [facility] [place] [address] 10/28/2023 2:30 PM EST Office Visit Gynecology/Obstetrics [address], [place] [address] Batool Drake PA-C [address] [place] [address] 11/04/2023 1:00 PM EST Office Visit Gynecology/Obstetrics [address] [address] Batool Drake PA-C [address] [place] [address] 11/10/2023 11:45 AM EST Office Visit [address]necologyObstetrics [address] [address] Melissa Wynn PA-C [address] [facility] [address] Pending Results Name Type Priority Associated Diagnoses Date /Time GROUP B STREP CULTURE/PCR Lab Routine 36 weeks gestation of 10/17/2023 1:28 PM EST Scheduled Orders Name Type Priority Associated Diagnoses Orde r Schedule GROUP B STREP CULTURE/PCR Lab Routine 36 weeks gestation of Expected: 10/17/2023, Expires: 10/17/2024 Health Maintenance Due Date Last Done Comments [...] Not on filedocumented as of this encounter Visit Diagnoses Diagnosis 36 weeks gestation of - Primary state, incidental documented in this encounter Care Teams Health Education Coordinator Relationship Specialty Start Date End Date Wilmer Jones MD [address] [place] [address] PCP - General Family Medicine 06/27/23 documented as of this encounter
--- OUTSIDE RECORDS SUMMARY | 2023-10-29 07:37 | External Medical Summary ---
Author Name Unknown Address Unknown Organization K01:[facility]ATORY [facility] [place] [address] [place] [address] Laboratory Report Ordering Provider Test Date Status FELIBERTO AGUILAR 10/23/2023 17:28:09 Final Normal: <150 mg/ g creatinine
High: 150-500 mg/g creatinine
Very High: >500 mg/g creatinine
Nephrotic: >3000 mg/g creatinine Observation Date Value Abnormality Reference (Units ) Status Protein/Creatinine [Ratio] in Urine 10/23/2023 17:28:09 1015 Above high normal <150 (mg/g ) Final Protein, Urine 10/23/2023 17:28:09 203 (mg/dL) Final Creatinine, Urine 10/23/2023 17:28:09 200 (mg/dL) Final Performing Location LAB[facility]ATORY [facility] [place] [place] - [address] [place] [address]
--- OUTSIDE RECORDS SUMMARY | 2023-10-29 07:37 | External Medical Summary ---
Author Name Unknown Address Unknown Organization K01:LABORATORY [facility] - [address] [place] [address] Laboratory Report Ordering Provider Test Date Status NICOLE MOURA 10/13/2023 10:18:34 Final Normal: <150 mg/24 hours<br/ >High: 150-500 mg/24 hours
Very High: >500 mg/24 hours
Nephrotic: >3000 mg/24 hours Observation Date Value Abnormality Reference (Units ) Status Protein, 24-hr Urine 10/13/2023 10:18:34 11 (mg/dL) Final Urine Volume 10/13/2023 10:18:34 1900 (mL) Final Protein, 24-hr Urine 10/13/2023 10:18:34 209 Above high normal <150 (mg/24 hours) Final Performing Location LABORATORY [facility] - [address] [place] [address]
--- OUTSIDE RECORDS SUMMARY | 2023-10-29 07:37 | External Medical Summary | Summary of Care ---
Author Name Unknown Organization [facility] Address [address] [place] [address] Phone [phone] Care Team Providers Care Vp Software Support Name Role Phone Wilmer Jones MD Primary Care Provider +1- [phone] Encounter Details Date Type Department Care Team (Late st Contact Info) Description 10/21/2023 Telephone Gynecology/Obstetrics [facility] [address] [place] [address] Chantale Cowart MD [address] [place] [address] Allergies Active Allergy Reactions Criticality [...] Chewable Take by mouth. 0 Active Breast PumpIndications:[place] st feeding status of mother BREAST FEEDING STATUS OF MOTHER Z39.1 AMANDA 11/12/23 1 Each 0 08/25/2023 Active Dyduaupwsg-VHRD-Faiy -Cod 82-747-13-30 MG Oral Capsule (Fioricet/Codeine) Take 30 mg [...] money to get more. Never true 07/10/2023 [place] Depression Scale Answer Date Recorded [place] Depression Scale Total 2 10/10/2023 The thought [...] encounter Miscellaneous Notes * Telephone Encounter - Buffy Dunn RN - 10/21/2023 9:55 AM EST T/C to pt. Aware of rx and instructions. * Telephone Encounter - Chantale Cowart MD - 10/21/2023 9:11 AM EST I sent pres to [facility] [employer] [employer] for Fioricet, please tell the pt to take as needed. * Telephone Encounter - Buffy Dunn RN - 10/21/2023 9:02 AM EST T/C [...] 10/23/2023 11:30 AM EST Office Visit Gynecology[address]stetrics [address] [address] Melissa Wynn PA-C [facility] [address] 10/28/2023 2:30 PM EST Office Visit Gynecology/Obstetrics [address] [place] [address] Batool Drake PA-C 400 [place] [address] 11/04/2023 1:00 PM EST Office Visit Gynecology/Obstetrics [facility] 400 [place] [address] Batool Drake PA-C [address] [place] [address] 11/10/2023 11:45 AM EST Office Visit Gynecology/Obstetrics [facility] 400 [place] [address] Melissa Wynn PA-C [address] [place] [address] Health Maintenance Due Date Last Done Comments [...] filedocumented as of this encounter Care Teams Vp Software Support Relationship Specialty Start Date End Date Wilmer Jones MD [address] [place] [address] PCP - General Family Medicine 06/27/23 documented as of this encounter
--- OUTSIDE RECORDS SUMMARY | 2023-10-29 07:37 | External Medical Summary | Summary of Care ---
Author Name Unknown Organization [facility] Address [address] [place] [address] Phone [phone] Care Team Providers Care Cloth Printer Name Role Phone Wilmer Jones MD Primary Care Provider +1- [phone] Reason for Visit * Reason Onset Date Comments Test Results 10/14/2023 Encounter Details Date Type Department Care Team (Late st Contact Info) Description 10/14/2023 Telephone Gynecology/Obstetrics [facility] [address] [place] [address] Batool Drake PA-C [address] [place], [place] [phone] Test Results Allergies Active Allergy Reactions Criticality Noted Date Comments Morphine Hives 07/14/2023 documented as of this encounter (statuses as of 10/14/2023) Medications Medication Sig Dispensed Refills Start Date [...] as of this encounter (statuses as of 10/14/2023) Active Problems Problem Noted Date Diagnosed Date Gestational proteinuria, antepartum 10/10/2023 Estimated Date of Delivery Comme nts Yes 11/12/2023 Based on last me nstrual period of 02/05/2023 (Exact Date) documented as of this encounter (statuses as of 10/14/2023) Immunizations Name Administration Dates Next Due TDAP [...] money to get more. Never true 07/10/2023 [place] Depression Scale Answer Date Recorded [place] Depression Scale Total 2 10/10/2023 The thought [...] encounter Miscellaneous Notes * Telephone Encounter - Rosalba Andres LPN - 10/14/2023 11:55 AM EST Called pt are reviewed attached messages and reviewed precautions of preeclampsia. Pt stated that she has been checking her BP daily and has gotten no abnormal readings. Pt denied any swelling in hands or feet. Pt denied any headaches. Pt denied any visual changes. Pt denied any right sided pain. Pt agreeable and will call with any symptom. Rosalba Andres LPN 10/14/2023 11:57 AM * Telephone Encounter - Rosalba Andres LPN - 10/14/2023 11:55 AM EST ----- Message from Melissa Wynn PA-C sent at 10/13/2023 8:57 AM EST ----- CBC returned normal * Telephone Encounter - Rosalba Andres LPN - 10/14/2023 11:54 AM EST ----- Message from Batool Drake PA-C sent at 10/14/2023 10:45 AM EST ----- Labs reviewed, please have her keep her appointment for Friday. Please review preeclampsia precautions, call sports information director provider with concerns/elevated BP 140/90 * Telephone Encounter - Rosalba Andres LPN - 10/14/2023 11:54 AM EST ----- Message from Batool Drake PA-C sent at 10/10/2023 4:57 PM EST ----- Liver functions WNLS , she does have 100 mg/dL of protein in urine on dip, will await PCR and 24 hour urine documented in this encounter Plan of Treatment Upcoming Encounters Date Type Department Care Team (Late st Contact Info) Description 10/17/2023 1:00 PM EST Office Visit Gynecology/Obstetrics [facility] [address] [place] [phone] Batool Drake PA-C [facility] [address] 10/23/2023 11:30 AM EST Office Visit GynecologyObstetrics [address], [place] [address] Melissa Wynn PA-C [address] [place] [address] 10/28/2023 2:30 PM EST Office Visit [facility]necologyObstetrics [address] [address] Batool Drake PA-C [address] [place] [address] [place] [address] 11/04/2023 1:00 PM EST [facility] [address] [address] Batool Drake PA-C [address] [place], [place] [address] [address] 11/10/2023 11:45 AM EST Office [address] [address] Melissa Wynn PA-C [address] [place], [place] [address] [address] Health Maintenance Due Date Last Done Comments [...] filedocumented as of this encounter Care Teams Cloth Printer Relationship Specialty Start Date End Date Wilmer Jones MD [address] [place] [address] PCP - General Family Medicine 06/27/23 documented as of this encounter
--- OUTSIDE RECORDS SUMMARY | 2023-10-29 07:37 | External Medical Summary | Summary of Care ---
Author Name Unknown Organization [facility] Address [address] [place] [address] Phone [phone] Care Team Providers Care Spark Plug Assembler Name Role Phone Wilmer Jones MD Primary Care Provider +1- [phone] Reason for Visit * Reason Comments Outpatient Testing Encounter Details Date Type Department Care Team (Late st Contact Info) Description 10/23/2023 12:20 PM EST Laboratory Laboratory, [facility] [address] [place] [id number] [facility], Lab [address] [place] [address] headache in third trimester Allergies Active Allergy [...] Chewable Take by mouth. 0 Active Breast PumpIndications:[place] st feeding status of mother BREAST FEEDING STATUS OF MOTHER Z39.1 AMANDA 11/12/23 1 Each 0 08/25/2023 Active Jmwbrgqhnk-XGAX-Yzlh -Cod 20-220-33-30 MG Oral Capsule (Fioricet/Codeine) Take 30 mg [...] money to get more. Never true 07/10/2023 [place] Depression Scale Answer Date Recorded [place] Depression Scale Total 2 10/10/2023 The thought [...] 10/28/2023 2:30 PM EST Office Visit Gynecology/Obstetrics [address] [place] [address] Batool Drake PA-C 400 [place] [address] 11/04/2023 1:00 PM EST Office Visit Gynecology/Obstetrics [address] [address] Batool Drake PA-C 400 [place] [address] 11/10/2023 11:45 AM EST Office Visit Gynecology/Obstetrics [address] [address] Melissa Wynn PA-C [address] [facility] [address] Pending Results Name Type Priority Associated Diagnoses Date /Time PLT Lab Routine headache in third trimester 10/23/2023 12:23 PM EST Health Maintenance Due Date Last Done Comments [...] as of this encounter Visit Diagnoses Diagnosis headache in third trimester documented in this encounter Care Teams Spark Plug Assembler Relationship Specialty Start Date End Date Wilmer Jones MD [address] [place] [address] PCP - General Family Medicine 06/27/23 documented as of this encounter
--- OUTSIDE RECORDS SUMMARY | 2023-10-29 07:37 | External Medical Summary | Summary of Care ---
Author Name Unknown Organization [facility] Address [address] [place] [place] [address] Phone [phone] Care Team Providers Care Engraver Letter Name Role Phone Wilmer Jones MD Primary Care Provider +1- [phone] Reason for Visit * Reason Comments Return Visit 35w2d Encounter Details Date Type Department Care Team (Late st Contact Info) Description 10/10/2023 1:00 PM EST Office Visit Gynecology/Obstetric s [facility] [address] [place], [place] [phone] Zeny Drake PA-C [address] [place], [place] [phone] Elevated BP without diagnosis of hypertension*; Gestational proteinuria, antepartum Allergies Active Allergy Reactions Criticality Noted Date Comments Morphine Hives 07/14/2023 documented as of this encounter (statuses as of 10/10/2023) Medications Medication Sig Dispensed Refills Start Date [...] as of this encounter (statuses as of 10/10/2023) Active Problems Problem Noted Date Diagnosed Date Gestational proteinuria, antepartum 10/10/2023 Estimated Date of Delivery Comme nts Yes 11/12/2023 Based on last me nstrual period of 02/05/2023 (Exact Date) documented as of this encounter (statuses as of 10/10/2023) Immunizations Name Administration Dates Next Due TDAP [...] money to get more. Never true 07/10/2023 [place] Depression Scale Answer Date Recorded [place] Depression Scale Total 2 10/10/2023 The thought [...] Sign Reading Time Taken Comments Blood Pressure 138/84 10/10/2023 12:57 PM EST Pulse - - Temperature 37 C (98.6 F) 10/10/2023 12:57 PM EST Respiratory Rate - - Oxygen Saturation - - Inhaled Oxygen Concentration - - Weight 113.9 kg (251 lb) 10/10/2023 12:57 PM EST Height - - Body Mass Index 39.31 07/14/2023 9:45 AM EDT documented in this encounter Progress Notes * Zeny Drake PA-C - 10/10/2023 12:58 PM EST Nicola Mejia is a 28 year old female here for her routine OB appointment at 35w2d. Her Estimated Date of Delivery: 11/12/23 REVIEW OF SYSTEMS: She affirms movement. Denies vaginal bleeding, LOF, contractions, N/V, headaches Noticed last week she started with increased period cramps and pelvic pressure and watery like discharge in her underwear , denies pruritus or malodor, vaginal bleeding Reports wisdom tooth was removed this week due to a broken tooth, she denies fever or signs of infection. She reports she was not given antibiotics for this PHYSICAL EXAM: Filed Vitals: 10/10/23 1257 BP: 138/84 Temp: 37 C (98.6 F) TempSrc: Tympanic Weight: 113.9 kg (251 lb) Interactive Designer Documentation Provider requested direct support specialist. Name of direct support specialist: Mckenzie Chand LPN SSE: General: alert, healthy, no distress, well nourished, and well developed Exam (Female): external genitalia and vagina anatomy within normal limits, cervix normal in appearance without lesions or purulent discharge, + creamy white discharge, no bleeding, no cervical dilation Nitrazine negative ASSESSMENT/PLAN: Elevated BP without diagnosis of hypertension (Primary) - PLT; Future; Expected date: 10/10/2023 - AST; Future; Expected date: 10/10/2023 - ALT; Future; Expected date: 10/10/2023 - PROTEIN/ CREATININE RATIO, URINE - URINE PROTEIN, 24 HOUR - CREATININE, 24 HOUR URINE - URINALYSIS OBSTETRICS, POINT OF CARE - patient had elevated BP at first OB visit at [facility] Gestational proteinuria, antepartum - elevated PCR at 18 weeks/ 24 hour protein at 198 mg/24 hr Supervision of -reassured , increase vaginal discharge likely /hormone related. Given warning signs and when to call - recommended flu vaccine - patient declines today - recommended RSV vaccine- patient given vaccine information sheet (offered 32- 36 04/02) - GBS swab next visit - Reviewed labor precautions,loss of fluid, vaginal bleeding, round ligament pain, and encouraged hydration. Reviewed [facility] - RTO in 1 week Zeny Drake PA-C * Breana Robbins CMA - 10/10/2023 12:56 PM EST Chief Complaint Patient presents with Return Visit 35w2d Pt here for routine . C/o pelvic pain that she describes as cramping. Noticing more fluid on underwear. Notes this to be clear documented in this encounter Miscellaneous Notes * Addendum Note - Zeny Drake PA-C - 10/10/2023 2:21 PM ESTAddended by: ZENY DRAKE on: 10/10/2023 02:21 PM Modules accepted: Orders documented in this encounter Plan of Treatment Upcoming Encounters Date Type Department Care Team (Late st Contact Info) Description 10/17/2023 1:00 PM EST Office Visit Gynecology/Obstetrics [address] [place] [address] Zeny Drake PA-C [address] [facility] [place] [address] 10/23/2023 11:30 AM EST Office Visit Gynecology/Obstetrics [address] [place] [address] Melissa Wynn PA-C 400 [facility] [place] [address] 10/28/2023 2:30 PM EST Office Visit Gynecology/Obstetrics [address] [place] [address] Zeny Drake PA-C 400 [facility] [address] 11/04/2023 1:00 PM EST Office Visit Gynecology/Obstetrics [facility] 400 [facility] [place] [address] Zeny Drake PA-C 400 [facility] [address] 11/10/2023 11:45 AM EST Office Visit Gynecology/Obstetrics [facility] 400 [facility], [place] [address] Melissa Wynn PA-C 400 [facility] [address] Pending Results Name Type Priority Associated Diagnoses Date /Time AST Lab Routine Elevated BP without diagnosis of hypertension 10/10/2023 1:47 PM EST ALT Lab Routine Elevated BP without diagnosis of hypertension 10/10/2023 1:47 PM EST PROTEIN/ CREATININE RATIO, URINE Lab Routine Elevated BP without diagnosis of hypertension 10/10/2023 1:52 PM EST COMPREHENSIVE METABOLIC PANEL Lab Routine Elevated BP without diagnosis of hypertension Gestational proteinuria, antepartum 10/10/2023 1:47 PM EST Scheduled Orders Name Type Priority Associated Diagnoses Orde r Schedule AST Lab Routine Elevated BP without diagnosis of hypertension Expected: 10/10/2023, Expires: 10/10/2024 ALT Lab Routine Elevated BP without diagnosis of hypertension Expected: 10/10/2023, Expires: 10/10/2024 URINE PROTEIN, 24 HOUR Lab Routine Elevated BP without diagnosis of hypertension Ordered: 10/10/2023 CREATININE, 24 HOUR URINE Lab Routine Elevated BP without diagnosis of hypertension Ordered: 10/10/2023 Health Maintenance Due Date Last Done Comments [...] Comments URINALYSIS OBSTETRICS, POINT OF CARE Routine 10/10/2023 1:51 PM EST Elevated BP without diagnosis of hypertension documented in this encounter Results * (ABNORMAL) URINALYSIS OBSTETRICS, POINT OF CARE (10/10/2023 1:51 PM EST) Color, Urine Yellow Light Yellow, Yellow 10/10/2023 1:53 PM [facility] Clarity, Urine Clear Clear 10/10/2023 1:53 PM [facility] Glucose, Urine Negative Negative mg/dL 10/10/2023 1:53 PM [facility] Bilirubin, Urine Negative Negative 10/10/2023 1:53 PM [facility] Ketone, Urine Negative Negative mg/dL 10/10/2023 1:53 PM [facility] Specific [place], Urine >=1.030 1.003 - 1.030 10/10/2023 1:53 PM [facility] Blood, Urine Moderate(A) Negative 10/10/2023 1:53 PM [facility] pH, Urine 6.0 5.0, 5.5, 6.0, 6.5, 7.0, 7.5 units 10/10/2023 1:53 PM [facility] Protein, Urine 100(A) Negative mg/dL 10/10/2023 1:53 PM EST [facility] Urobilinogen, Urine 0.2 0.2, 1.0 mg/dL 10/10/2023 1:53 PM EST [facility] Nitrite, Urine Negative Negative 10/10/2023 1:53 PM EST [facility] Esterase, Urine Negative Negative 10/10/2023 1:53 PM EST [facility] Urine 10/10/2023 1:51 PM EST 10/10/2023 1:53 PM EST Zeny Drake PA-C LAB POINT OF C ARE TEST DOCKED DEVICE UNSOLICITED RESULTS [facility] 400 [facility] [place] [address] documented in this encounter Visit Diagnoses Diagnosis Elevated BP without diagnosis of hypertension- Primary Gestational proteinuria, antepartum Unspecified antepartum renal disease documented in this encounter Care Teams Engraver Letter Relationship Specialty Start Date End Date Wilmer Jones MD [address] [place] [address] PCP - General Family Medicine 06/27/23 documented as of this encounter
--- OUTSIDE RECORDS SUMMARY | 2023-10-29 07:37 | External Medical Summary ---
Author Name Unknown Address Unknown Organization : Laboratory Report Ordering Provider Test Date Status KOBI AGUILARChloe 10/23/2023 11:49:00 Final Observation Date Value Abnormality Reference (Units ) Status Color of Urine by Auto 10/23/2023 11:49:00 Yellow Light Yellow, Yellow Final Clarity, Urine 10/23/2023 11:49:00 Slightly Cloudy Abnormal Clear Final Glucose [Mass/volume] in Urine by Automated test strip 10/23/2023 11:49:00 Negative Negative (mg/dL) Final Bilirubin.total [Presence] in Urine by Automated test strip 10/23/2023 11:49:00 Negative Negative Final Ketones [Mass/volume] in Urine by Automated test strip 10/23/2023 11:49:00 Negative Negative (mg/dL) Final Specific gravity, Urine 10/23/2023 11:49:00 >=1.030 1.003-1.030 Final Hemoglobin [Presence] in Urine by Automated test strip 10/23/2023 11:49:00 Moderate Abnormal Negative Final pH, Urine 10/23/2023 11:49:00 6.0 5.0, 5.5, 6.0, 6.5, 7.0, 7.5 (units) Final Protein [Mass/volume] in Urine by Automated test strip 10/23/2023 11:49:00 >=300 Abnormal Negative (mg/dL) Final Urobilinogen, Urine 10/23/2023 11:49:00 0.2 0.2, 1.0 (mg/dL) Final Nitrite [Presence] in Urine by Automated test strip 10/23/2023 11:49:00 Negative Negative Final Leukocyte esterase [Presence] in Urine by Automated test strip 10/23/2023 11:49:00 Negative Negative Final Performing Location
--- OUTSIDE RECORDS SUMMARY | 2023-10-29 07:37 | External Medical Summary | Summary of Care ---
Author Name Unknown Organization [facility] Address [address] [place] [address] Phone [phone] Care Team Providers Care Form Building Supervisor Name Role Phone Wilmer Jones MD Primary Care Provider +1- [phone] Reason for Visit * Reason Comments Return Visit Encounter Details Date Type Department Care Team (Late st Contact Info) Description 10/17/2023 1:00 PM EST Office Visit Gynecology/Obstetric s [facility] [address] [place] [address] Batool Drake PA-C [address] [place], [place] [phone] 36 weeks gestation of * Allergies Active [...] money to get more. Never true 07/10/2023 [place] Depression Scale Answer Date Recorded [place] Depression Scale Total 2 10/10/2023 The thought [...] BP: 124/80 Weight: 114.8 kg (253 lb) Supplier Quality Manager Documentation Provider requested terrazzo tile setter. Name of terrazzo tile setter: Monica Lopez PAC for GBS swab ASSESSMENT/PLAN: [...] 10/23/2023 11:30 AM EST Office Visit Gynecology/Obstetrics [facility] [address] [place] [address] Melissa Wynn PA-C [facility] [place] [address] 10/28/2023 2:30 PM EST Office Visit Gynecology/Obstetrics [address], [place] [address] Batool Drake PA-C [address] [place] [address] 11/04/2023 1:00 PM EST Office Visit Gynecology/Obstetrics [address] [address] Batool Drake PA-C [address] [place] [address] 11/10/2023 11:45 AM EST Office Visit [facility]necologyObstetrics [address] [address] Melissa Wynn PA-C [address] [facility] [address] Pending Results Name Type Priority Associated Diagnoses [...] incidental documented in this encounter Care Teams Form Building Supervisor Relationship Specialty Start Date End Date Wilmer Jones MD [address] [place] [address] PCP - General Family Medicine 06/27/23 documented as of this encounter
--- OUTSIDE RECORDS SUMMARY | 2023-10-29 07:37 | External Medical Summary ---
Author Name Unknown Address Unknown Organization K01:LABORATORY [facility] - [facility] [address] [facility] [address] [place] [address] Laboratory Report Ordering Provider Test Date Status NICOLE MOURA 10/17/2023 13:28:24 Final Observation Date Value Abnormality Reference (Units ) Status Streptococcus agalactiae DNA [Presence] in Specimen by LORENA with probe detection 10/17/2023 13:28:24 Positive Abnormal Negative Final Group B Streptococcus detect ed by culture-enhanced PCR (amplified probe).
The collection of vaginal/rectal swab specimen combinations (FDA approved specimen type) is optimal for the detection of Group B Streptococcus. Single source collection (vaginal only or rectal only) or alternate specimen sources may lead to false negative results. Performing Location LABORATORY [facility] - [address] [place] [address]
--- OUTSIDE RECORDS SUMMARY | 2023-10-29 07:37 | External Medical Summary | Summary of Care ---
Author Name Unknown Organization [facility] Address [address] [place] [address] Phone [phone] Care Team Providers Care Taper Printed Circuit Layout Name Role Phone Wilmer Jones MD Primary Care Provider +1- [phone] Reason for Visit * Reason Comments Non Stress Test Return Visit 37w 6d Encounter Details Date Type Department Care Team (Late st Contact Info) Description 10/28/2023 2:00 PM EST Office Visit Gynecology/Obstetric s [facility] [address] [place] [address] Batool Drake PA-C [address] [place], [place] [phone] [place], Non Stress Test [address] [place], [place] [phone] 37 weeks gestation of *; GBS (group [...] Chewable Take by mouth. 0 Active Breast PumpIndications:[place] st feeding status of mother BREAST FEEDING STATUS OF MOTHER Z39.1 AMANDA 11/12/23 1 Each 0 08/25/2023 Active Qrijnzppmo-FDRW-Qngx -Cod 62-155-37-30 MG Oral Capsule (Fioricet/Codeine) Take 30 mg [...] money to get more. Never true 07/10/2023 [place] Depression Scale Answer Date Recorded [place] Depression Scale Total 2 10/10/2023 The thought [...] N/V, headaches Was seen on L&D at [facility] on 10/23/2023 for elevated PCR ratio, Notes last BAUGH was Friday, denies symptoms today Is scheduled for induction tomorrow at [facility] Filed Vitals: 10/28/23 1416 BP: 132/92 Temp: 36.8 C (98.2 F) Weight: 115.9 kg (255 lb 9.6 oz) Results URINALYSIS OBSTETRICS, POINT OF CARE [[id number]] (Order [id number]) Result Information Flag: Abnormal Abnormal Status: Final result (Resulted: 10/28/2023 14:48) Provider Status: Open Contains abnormal data URINALYSIS OBSTETRICS, POINT OF CARE Order: [id number] Status: Final result Visible to patient: Yes (not seen) Next appt: 11/04/2023 at 01:00 PM in *[facility]/OB* (Batool Drake PA-C) Dx: Gestational proteinuria, antepartum 0 Result Notes Component Ref Range & Units 14:45 5 d ago 2 wk ago Color, Urine Light Yellow, Yellow Yellow Yellow Yellow Clarity, Urine Clear Clear Slightly Cloudy Abnormal Clear Glucose, Urine Negative mg/dL Negative Negative Negative Bilirubin, Urine Negative Negative Negative Negative Ketone, Urine Negative mg/dL Negative Negative Negative Specific [place], Urine 1.003 - 1.030 1.025 >=1.030 >=1.030 Blood, Urine Negative Small Abnormal Moderate Abnormal Moderate Abnormal pH, Urine 5.0, 5.5, 6.0, 6.5, 7.0, 7.5 units 7.0 6.0 6.0 Protein, Urine Negative mg/dL 30 Abnormal >=300 Abnormal 100 Abnormal Urobilinogen, Urine 0.2, 1.0 mg/dL 0.2 0.2 0.2 Nitrite, Urine Negative Negative Negative Negative Esterase, Urine Negative Trace Abnormal Negative Negative Resulting Agency [facility] We discussed and reviewed the known complications and reviewed the plans as follows 1. GBS (group B streptococcus) infection 2. Gestational proteinuria, antepartum 3. 37 weeks gestation of Advised when to call: Vaginal bleeding, leaking of fluid, regular contractions every five minutes for at least an hour, decreased movement, any other questions or concerns. Reviewed [facility] IOL tomorrow morning at [facility] at 7 AM , given PEC signs/warning [...] Yellow Light Yellow, Yellow 10/28/2023 2:48 PM [facility] Clarity, Urine Clear Clear 10/28/2023 2:48 PM [facility] Glucose, Urine Negative Negative mg/dL 10/28/2023 2:48 PM [facility] Bilirubin, Urine Negative Negative 10/28/2023 2:48 PM [facility] Ketone, Urine Negative Negative mg/dL 10/28/2023 2:48 PM [facility] Specific [place], Urine 1.025 1.003 - 1.030 10/28/2023 2:48 PM [facility] Blood, Urine Small(A) Negative 10/28/2023 2:48 PM [facility] pH, Urine 7.0 5.0, 5.5, 6.0, 6.5, 7.0, 7.5 units 10/28/2023 2:48 PM EST [facility] Protein, Urine 30(A) Negative mg/dL 10/28/2023 2:48 PM EST [facility] Urobilinogen, Urine 0.2 0.2, 1.0 mg/dL 10/28/2023 2:48 PM EST [facility] Nitrite, Urine Negative Negative 10/28/2023 2:48 PM EST [facility] Esterase, Urine Trace(A) Negative 10/28/2023 2:48 PM EST [facility] Urine 10/28/2023 2:45 PM EST 10/28/2023 2:48 PM EST Batool Drake PA-C LAB POINT OF C ARE TEST DOCKED DEVICE UNSOLICITED RESULTS [facility] [address] [facility] [place] [address] documented in this encounter Visit Diagnoses Diagnosis 37 weeks gestation of - Primary state, incidental GBS (group B streptococcus) infection Streptococcus infection in conditions classified elsewhere and of unspecified site, group B Gestational proteinuria, antepartum Unspecified antepartum renal disease documented in this encounter Care Teams Taper Printed Circuit Layout Relationship Specialty Start Date End Date Wilmer Jones MD [address] [place] [address] PCP - General Family Medicine 06/27/23 documented as of this encounter
--- OUTSIDE RECORDS SUMMARY | 2023-10-29 07:37 | External Medical Summary | Summary of Care ---
Author Name Unknown Organization [facility] Address [address] [facility] [place] [address] Phone [phone] Care Team Providers Care Finish Production Manager Name Role Phone Wilmer Jones MD Primary Care Provider +1- [phone] Reason for Visit * Reason Comments Outpatient Testing Encounter Details Date Type Department Care Team (Late st Contact Info) Description 10/13/2023 10:20 AM EST Laboratory Laboratory [facility] [place] [address] [place] [address] [address], Specimen Drop Off [facility] [address] [place] [address] Arrived Allergies Active Allergy Reactions Criticality Noted Date Comments Morphine Hives 07/14/2023 documented as of this encounter (statuses as of 10/13/2023) Medications Medication Sig Dispensed Refills Start Date [...] as of this encounter (statuses as of 10/13/2023) Active Problems Problem Noted Date Diagnosed Date Gestational proteinuria, antepartum 10/10/2023 Estimated Date of Delivery Comme nts Yes 11/12/2023 Based on last me nstrual period of 02/05/2023 (Exact Date) documented as of this encounter (statuses as of 10/13/2023) Immunizations Name Administration Dates Next Due TDAP [...] money to get more. Never true 07/10/2023 [place] Depression Scale Answer Date Recorded [place] Depression Scale Total 2 10/10/2023 The thought [...] 10/17/2023 1:00 PM EST Office Visit Gynecology/Obstetrics [facility] [address] [place] [phone] Batool Drake PA-C [address] [place] [address] 10/23/2023 11:30 AM EST Office Visit GynecologyObstetrics [address], [place] [address] Melissa Wynn PA-C [address] [place] [address] 10/28/2023 2:30 PM EST Office Visit [facility]stetrics [address] [address] Batool Drake PA-C [address] [place] [address] [place] [address] 11/04/2023 1:00 PM EST [facility] [address] [address] Batool Drake PA-C [address] [place], [place] [address] [address] 11/10/2023 11:45 AM EST [address] [address] Melissa Wynn PA-C [address] [place], [place] [address] [address] Health Maintenance Due Date Last Done Comments [...] filedocumented as of this encounter Care Teams Finish Production Manager Relationship Specialty Start Date End Date Wilmer Jones MD [address] [place] [address] PCP - General Family Medicine 06/27/23 documented as of this encounter
--- OUTSIDE RECORDS SUMMARY | 2023-10-29 07:38 | External Medical Summary | Summary of Care ---
Author Name Unknown Organization [facility] Address [address] [place] [address] Phone [phone] Care Team Providers Care Business Process Expert Name Role Phone Wilmer Jones MD Primary Care Provider +1- [phone] Reason for Visit * Reason Comments Outpatient Testing Encounter Details Date Type Department Care Team (Late st Contact Info) Description 08/25/2023 10:50 AM EDT Laboratory Laboratory, [facility] [address] [place] [phone] [facility], Lab [address] [place], [place] [phone] Supervision of other normal , antepartum Allergies Active Allergy Reactions Criticality Noted Date Comments Morphine Hives 07/14/2023 documented as of this encounter (statuses as of 08/25/2023) Medications Medication Sig Dispensed Refills Start Date [...] Tablet Chewable Take by mouth. 0 Active documented as of this encounter (statuses as of 08/25/2023) Immunizations Name Administration Dates Next Due TDAP [...] money to get more. Never true 07/10/2023 [place] Depression Scale Answer Date Recorded [place] Depression Scale Total 2 07/28/2023 The thought of harming myself has occurred to me . Never 07/28/2023 Estimated Date of Delivery Comme nts Yes [...] Care Team (Late st Contact Info) Description 09/08/2023 1:00 PM EST Office Visit Gynecology/Obstetrics [facility] [address] [place] [address] Batool Drake PA-C [address] [place] [phone] Pending Results Name Type Priority Associated Diagnoses Date /Time 50-G GESTATIONAL GLUCOSE, 1 HOUR Lab Routine Supervision of other normal , antepartum 08/25/2023 12:15 PM EDT SYPHILIS ANTIBODY SCREEN WITH REFLEX TO RPR Lab Routine Supervision of other normal , antepartum 08/25/2023 12:15 PM EDT SYPHILIS ANTIBODY SCREEN Lab Routine Supervision of other normal , antepartum 08/25/2023 12:15 PM EDT Health Maintenance Due Date Last Done Comments Hepatitis B (1 of 3 - 3-dose series) 1997 COVID-19 Vaccine (#1) 1997 GARDASIL-HPV IMMUNIZATION SERIES (1 - 2-dose series) 2008 Depression Screening 2009 Hepatitis C Screening 2015 Pap Smear 2018 Influenza Vaccine (FLU shot) (#1) 2023 DTaP,Tdap,and Td Vaccines (3 - Td or [...] as of this encounter Visit Diagnoses Diagnosis Supervision of other normal , antepartum documented in this encounter Care Teams Business Process Expert Relationship Specialty Start Date End Date Wilmer Jones MD [address] [place] [address] PCP - General Family Medicine 06/27/23 documented as of this encounter
--- OUTSIDE RECORDS SUMMARY | 2023-10-29 07:38 | External Medical Summary ---
Author Name Unknown Address Unknown Organization K01:[facility] [address] [facility] [address] [facility] [address] Laboratory Report Ordering Provider Test Date Status FELIBERTO AGUILAR 08/25/2023 12:15:20 Final Observation Date Value Abnormality Reference (Units ) Status Treponema pallidum Ab [Presence] in Serum by Immunoassay 08/25/2023 12:15:20 Nonreactive Nonreactive Final No serologic evidence of syp hilis. No additional testing clinicially indicated at this time. Consider repeat testing in 2-4 weeks if acute or primary syphilis is suspected. Performing Location [facility] [address] [facility] [address]
--- OUTSIDE RECORDS SUMMARY | 2023-10-29 07:38 | External Medical Summary | Summary of Care ---
Author Name Unknown Organization [facility] Address [address] [facility] [address] Phone [phone] Care Team Providers Care Patient Placement Coordinator Name Role Phone Wilmer Jones MD Primary Care Provider +1- [phone] Reason for Visit * Reason Comments Return Visit 28 weeks 5 days Encounter Details Date Type Department Care Team (Late st Contact Info) Description 08/25/2023 11:30 AM EDT Office Visit Gynecology/Obstetric s [facility] [address] [place], [place] [phone] Melissa Wynn PA-C [address] [place], [place] [phone] Supervision of other normal , antepartum*; Need for prophylactic vaccination with combined gtgriottka-dncwait-nt rtussis (DTP) vaccine; Breast feeding status of mother Allergies Active Allergy Reactions Criticality Noted Date [...] Date Smoking Tobacco: Never Smokeless Tobacco: Never Tobacco Cessation:Counseling Given: Not Answered Alcohol Use Standard Drinks/Week Comments Not Currently [...] money to get more. Never true 07/10/2023 [place] Depression Scale Answer Date Recorded [place] Depression Scale Total 2 07/28/2023 The thought [...] Reading Time Taken Comments Blood Pressure 124/80 08/25/2023 11:23 AM EDT Pulse - - Temperature 36.4 C (97.6 F) 08/25/2023 1 1:23 AM EDT Respiratory Rate - - Oxygen Saturation - - Inhaled Oxygen Concentration - - Weight 108.7 kg (239 lb 9.6 oz) 023 11:23 AM EDT Height - - Body Mass Index 37.53 07/14/2023 9:45 AM EDT documented in this encounter Progress Notes * Melissa Wynn PA-C - 08/25/2023 11:39 AM EDT Nicola Mejia is a 28 year old female here for her routine OB appointment at 28w5d Her Estimated Date of Delivery: 11/12/23 REVIEW OF SYSTEMS: She affirms movement. Denies vaginal bleeding, LOF, contractions, N/V, headaches. Taking pepcid once daily, TUMS PRN - still with breakthrough heartburn. Advised to increase to BID dosing on Pepcid. PHYSICAL EXAM: Filed Vitals: 08/25/23 1123 BP: 124/80 Temp: 36.4 C (97.6 F) Weight: 108.7 kg (239 lb 9.6 oz) +FHT 140s Fundal height 29 ASSESSMENT/PLAN: Supervision of other normal , antepartum (Primary) - TDAP (AGE 10 AND OLDER)(BOOSTRIX) - IMM. ADM.,SGL/COMBO VAC/TOXOID Need for prophylactic vaccination with combined cyaziqstll-ocmlmba-fpppcwbuz (DTP) vaccine Breast feeding status of mother - Breast Pump; BREAST FEEDING STATUS OF MOTHER Z39.1 AMANDA 11/12/23 Supervision of - recommended flu vaccine - patient declines today - recommended tdap vaccine - patient agreeable today - completing third trimester labs today - she desires prescription for a breast pump - contraception options discussed with patient - rhogam is not needed d/t A+ blood type - labor precautions and kick counts reviewed - RTO in 2 weeks Melissa Wynn PA-C documented in this encounter Nursing Notes * Marker-Ines Person LPN - 08/25/2023 11:49 AM EDT Pre-Administration Time Out Procedure Performed: Yes Patient Identified (Ask Name/Date of ): Yes Does the patient have a fever greater than 101 degrees today? No Patient allergic to latex? No Has the patient ever fainted after receiving an injection? No VFC Stock: No Immunization(s) verified: Yes, Immunization Name: DTaP, VIS Sheet(s) given: Yes Verified Side and Site: Yes Verified Shot(s) with Parent(s)/Patient: Yes Ines Leiva LPN 08/25/2023 11:49 AM * Ines Leiva LPN - 08/25/2023 11:23 AM EDT Chief Complaint Patient presents with Return Visit 28 weeks 5 days Ines Leiva LPN 08/25/2023 11:24 AM documented in this encounter Plan of Treatment Upcoming Encounters Date Type Department Care Team (Late st Contact Info) Description 09/08/2023 1:00 PM EST Office Visit Gynecology/Obstetrics [facility] [address] [place] [address] Batool Drake PA-C [address] [place], [place] [phone] Health Maintenance Due Date Last Done Comments [...] Diagnoses Diagnosis Supervision of other normal , antepartum- Primary Need for prophylactic vaccination with combined uuqhlfklgb-jshlzpd-dvnfpjanh (DTP) vaccine Breast feeding status of mother care and examination of lactating mother documented in this encounter Care Teams Patient Placement Coordinator Relationship Specialty Start Date End Date Wilmer Jones MD [address] [place] [phone] PCP - General Family Medicine 06/27/23 documented as of this encounter
--- OUTSIDE RECORDS SUMMARY | 2023-10-29 07:38 | External Medical Summary | Summary of Care ---
Author Name Unknown Organization [facility] Address [address] [facility] [place] [address] Phone [phone] Care Team Providers Care Inspector Of Dredging Name Role Phone Wilmer Jones MD Primary Care Provider +1- [phone] Reason for Visit * Reason Comments Return Visit 35w2d Encounter Details Date Type Department Care Team (Late st Contact Info) Description 10/10/2023 1:00 PM EST Office Visit Gynecology/Obstetric s [facility] [address] [place], [place] [phone] Zeny Drake PA-C [address] [place], [place] [phone] Elevated BP without diagnosis of hypertension*; Gestational [...] money to get more. Never true 07/10/2023 [place] Depression Scale Answer Date Recorded [place] Depression Scale Total 2 10/10/2023 The thought [...] TempSrc: Tympanic Weight: 113.9 kg (251 lb) Accounts Payable Associate Documentation Provider requested roving changer. Name of roving changer: Mckenzie Chand LPN SSE: General: alert, healthy, [...] 10/17/2023 1:00 PM EST Office Visit Gynecology/Obstetrics [address] [place] [address] Zeny Drake PA-C [address] [facility] [place] [address] 10/23/2023 11:30 AM EST Office Visit Gynecology/Obstetrics [address] [place] [address] Melissa Wynn PA-C [address] [facility] [place] [address] 10/28/2023 2:30 PM EST Office Visit Gynecology/Obstetrics [address] [place] [address] Zeny Drake PA-C [address] [facility] [place] [address] 11/04/2023 1:00 PM EST Office Visit Gynecology/Obstetrics [facility] [address] [facility] [place] [address] Zeny Drake PA-C [address] [facility] [address] 11/10/2023 11:45 AM EST Office Visit Gynecology/Obstetrics [facility] [address] [facility], [place] [address] Melissa Wynn PA-C [address] [facility] [address] Pending Results Name Type Priority Associated Diagnoses Date /Time AST Lab Routine Elevated BP without diagnosis of hypertension 10/10/2023 1:47 PM EST ALT Lab Routine Elevated BP without diagnosis of hypertension 10/10/2023 1:47 PM EST PROTEIN/ CREATININE RATIO, URINE Lab Routine Elevated BP without diagnosis of hypertension 10/10/2023 1:52 PM EST Scheduled Orders Name Type Priority [...] BP without diagnosis of hypertension Ordered: 10/10/2023 COMPREHENSIVE METABOLIC PANEL Lab Routine Elevated BP without diagnosis of hypertension Gestational proteinuria, antepartum Ordered: 10/10/2023 Health Maintenance Due Date Last [...] Yellow Light Yellow, Yellow 10/10/2023 1:53 PM [facility] Clarity, Urine Clear Clear 10/10/2023 1:53 PM [facility] Glucose, Urine Negative Negative mg/dL 10/10/2023 1:53 PM [facility] Bilirubin, Urine Negative Negative 10/10/2023 1:53 PM [facility] Ketone, Urine Negative Negative mg/dL 10/10/2023 1:53 PM [facility] Specific [place], Urine >=1.030 1.003 - 1.030 10/10/2023 1:53 PM [facility] Blood, Urine Moderate(A) Negative 10/10/2023 1:53 PM [facility] pH, Urine 6.0 5.0, 5.5, 6.0, 6.5, 7.0, 7.5 units 10/10/2023 1:53 PM [facility] Protein, Urine 100(A) Negative mg/dL 10/10/2023 1:53 PM EST [facility] Urobilinogen, Urine 0.2 0.2, 1.0 mg/dL 10/10/2023 1:53 PM EST [facility] Nitrite, Urine Negative Negative 10/10/2023 1:53 PM EST [facility] Esterase, Urine Negative Negative 10/10/2023 1:53 PM EST [facility] Urine 10/10/2023 1:51 PM EST 10/10/2023 1:53 PM EST Zeny Drake PA-C LAB POINT OF C ARE TEST DOCKED DEVICE UNSOLICITED RESULTS [facility] [address] [facility] [place] [address] documented in this encounter Visit Diagnoses Diagnosis Elevated BP without diagnosis of hypertension- Primary Gestational proteinuria, antepartum Unspecified antepartum renal disease documented in this encounter Care Teams Inspector Of Dredging Relationship Specialty Start Date End Date Wilmer Jones MD [address] [place] [address] PCP - General Family Medicine 06/27/23 documented as of this encounter
--- OUTSIDE RECORDS SUMMARY | 2023-10-29 07:38 | External Medical Summary | Summary of Care ---
Author Name Unknown Organization [facility] Address [address] [place] [address] Phone [phone] Care Team Providers Care Car Designer Name Role Phone Wilmer Jones MD Primary Care Provider +1- [phone] Reason for Visit * Reason Onset Date Comments Other 09/04/2023 Encounter Details Date Type Department Care Team (Late st Contact Info) Description 09/04/2023 Telephone Gynecology/Obstetrics [facility] [address] [place] [address] Services, Scheduling [address] [place] [address] Other Allergies Active Allergy Reactions Criticality Noted Date Comments Morphine Hives 07/14/2023 documented as of this encounter (statuses as of 09/04/2023) Medications Medication Sig Dispensed Refills Start Date [...] as of this encounter (statuses as of 09/04/2023) Immunizations Name Administration Dates Next Due TDAP [...] money to get more. Never true 07/10/2023 [place] Depression Scale Answer Date Recorded [place] Depression Scale Total 2 07/28/2023 The thought [...] encounter Miscellaneous Notes * Telephone Encounter - Ines Leiva LPN - 09/04/2023 1:14 PM EST Phone call to pt. Pt needing after office hours number. Info given. Ines Leiva LPN 09/04/2023 1:15 PM * Telephone Encounter - Verenice Acosta OSA - 09/04/2023 12:41 PM EST Patient would like a call back from a nurse regarding questions about information that she needs for after hours while she is . Please contact patient at [phone] to assist. Thank you. documented in this encounter Plan of Treatment Upcoming Encounters Date Type Department Care Team (Late st Contact Info) Description 09/08/2023 1:00 PM EST Office Visit Gynecology/Obstetrics [facility] [address] [place] [address] Batool Drake PA-C [address] [facility] [place] [address] Health Maintenance Due Date Last Done Comments [...] filedocumented as of this encounter Care Teams Car Designer Relationship Specialty Start Date End Date Wilmer Jones MD [address] [place] [address] PCP - General Family Medicine 06/27/23 documented as of this encounter
--- OUTSIDE RECORDS SUMMARY | 2023-10-29 07:38 | External Medical Summary | Summary of Care ---
Author Name Unknown Organization [facility] Address [address] [place] [address] Phone [phone] Care Team Providers Care Manager Core Name Role Phone Wilmer Jones MD Primary Care Provider +1- [phone] Reason for Visit * Reason Comments Return Visit 30w 5d Encounter Details Date Type Department Care Team (Late st Contact Info) Description 09/08/2023 1:00 PM EST Office Visit Gynecology/Obstetric s [facility] [address] [place] [address] Batool Drake PA-C [address] [place], [place] [phone] 30 weeks gestation of * Allergies Active Allergy Reactions Criticality Noted Date Comments Morphine Hives 07/14/2023 documented as of this encounter (statuses as of 09/08/2023) Medications Medication Sig Dispensed Refills Start Date [...] as of this encounter (statuses as of 09/08/2023) Immunizations Name Administration Dates Next Due TDAP [...] money to get more. Never true 07/10/2023 [place] Depression Scale Answer Date Recorded [place] Depression Scale Total 2 09/08/2023 The thought of harming myself has occurred to me . Never 09/08/2023 Estimated Date of Delivery Comme nts Yes [...] Sign Reading Time Taken Comments Blood Pressure 130/84 09/08/2023 12:51 PM EST Pulse - - Temperature - - Respiratory Rate - - Oxygen Saturation - - Inhaled Oxygen Concentration - - Weight 110.2 kg (243 lb) 09/08/2023 12:51 PM EST Height - - Body Mass Index 38.06 07/14/2023 9:45 AM EDT documented in this encounter Progress Notes * Batool Drake PA-C - 09/08/2023 1:08 PM EST Nicola Mejia is a 28 year old female here for her routine OB appointment at 30w5d. Her Estimated Date of Delivery: 11/12/23 REVIEW OF SYSTEMS: She affirms movement. Denies vaginal bleeding, LOF, contractions, N/V, headaches [place]wny Depression Scale Total: 2 The thought of harming myself has occurred to me.: 0 PHYSICAL EXAM: Filed Vitals: 09/08/23 1251 BP: 130/84 Weight: 110.2 kg (243 lb) ASSESSMENT/PLAN: Supervision of - 3rd tri labs reviewed - encouraged birthing classes - Reviewed labor precautions,loss of fluid, vaginal bleeding, round ligament pain, and encouraged hydration. - RTO in 2 weeks Batool Drake PA-C documented in this encounter Nursing Notes * Joleen Srivastava LPN - 09/08/2023 12:53 PM EST Chief Complaint Patient presents with Return Visit 30w 5d Denies problems/concerns today. documented in this encounter Plan of Treatment Upcoming Encounters Date Type Department Care Team (Late st Contact Info) Description 09/25/2023 9:00 AM EST Office Visit Gynecology/Obstetrics [address] [place] [address] Batool Drake PA-C 400 [place] [address] Health Maintenance Due Date Last Done Comments [...] as of this encounter Visit Diagnoses Diagnosis 30 weeks gestation of - Primary state, incidental documented in this encounter Care Teams Manager Core Relationship Specialty Start Date End Date Wilmer Jones MD [address] [place] [address] PCP - General Family Medicine 06/27/23 documented as of this encounter
--- OUTSIDE RECORDS SUMMARY | 2023-10-29 07:38 | External Medical Summary | Summary of Care ---
Author Name Unknown Organization [facility] Address [address] [place] [facility] [address] Phone [phone] Care Team Providers Care Assembler Lay Ups Name Role Phone Wilmer Jones MD Primary Care Provider +1- [phone] Reason for Visit * Reason Comments Initial Visit intake Encounter Details Date Type Department Care Team Description 07/14/2023 Nurse Only Gynecology/Obstetrics [facility] [address] [place], [place] [phone] [facility] Nurse [facility] [address] [place] [address] Initial Visit (intake) Allergies Active Allergy Reactions Severity Noted Date Comments Morphine Hives 07/14/2023 documented as of this encounter (statuses as of 07/14/2023) Medications Medication Sig Dispensed Refills Start Date [...] as of this encounter (statuses as of 07/14/2023) Social History Tobacco Use Types Packs/Day Years Used Date Smoking Tobacco: Never Assessed Food Insecurity Answer Date Recorded Within the past 12 months, y ou worried that your food would run out before you got money to buy more. Never true 07/10/2023 Within the past 12 months, t he food you bought just didn't last and you didn't have money to get more. Never true 07/10/2023 Estimated Date of Delivery Comme nts Yes 11/12/2023 Based on last me nstrual period of 02/05/2023 (Exact Date) Sex Assigned at Date Recorded Female 07/10/2023 2:56 PM E DT Job Start Date Occupation Industry Not on file Not on file Not on file documented as of this encounter Last Filed Vital Signs Vital Sign Reading Time Taken Comments Blood Pressure - - Pulse - - Temperature - - Respiratory Rate - - Oxygen Saturation - - Inhaled Oxygen Concentration - - Weight 106.1 kg (233 lb 12.8 oz) 07/14/2023 9:45 AM EDT Height 170.2 cm (5' 7") 07/14/2023 9:45 AM EDT Body Mass Index 36.62 07/14/2023 9:45 AM EDT documented in this encounter Nursing Notes * Kavita Chand LPN - 07/14/2023 9:47 AM EDT Chief Complaint Patient presents with Initial Visit intake Pt is a transfer of care coming from [facility]. Pt has records to bring to visit. States she called [facility] times for them to fax records and she states she is unsure if they ever did so, we have nothing on file at this time from them. Dating US done today. Kavita Chand LPN documented in this encounter Plan of Treatment Upcoming Encounters Date Type Specialty Care Team Description 07/28/2023 Office Visit Gynecology Obstetrics [place], Melissa Marshall PA-C [address] [place] [address] [place] [phone] Health Maintenance Due Date Last Done Comments Hepatitis B (1 of 3 - 3-dose series) 1997 COVID-19 Vaccine (#1) 1997 GARDASIL-HPV IMMUNIZATION SE GERARDO (1 - 2-dose series) 2008 Depression Screening 2009 Hepatitis C Screening 2015 Pap Smear 2018 Influenza Vaccine (FLU shot) (#1) 2023 DTaP,Tdap,and Td Vaccines (2 - Td or Tdap) 06/12/2026 06/12/2016 HIV Screening Completed 05/08/2023 MENINGOCOCCAL (MENACTRA/MENVEO) Aged Out No longer eligible based on patient's age to complete this topic Pneumococcal Vaccine: Pediat rics (0 to 5 Years) and At-Risk Patients (6 to 64 Years) Aged Out No longer eligi ble based on patient's age to complete this topic documented as of this encounter Medical Devices Not on filedocumented as of this encounter Care Teams Assembler Lay Ups Relationship Specialty Start Date End Date Wilmer Jones MD [address] [place] [address] [place] [address] PCP - General Family Medicine 06/27/23 documented as of this encounter
--- OUTSIDE RECORDS SUMMARY | 2023-10-29 07:38 | External Medical Summary ---
Author Name Unknown Address Unknown Organization [id number]:LABORATORY [facility] - [address] [address] Laboratory Report Ordering Provider Test Date Status NICOLE MOURA 10/10/2023 13:47:19 Final Observation Date Value Abnormality Reference (Units ) Status ALT (Alanine aminotransferase) 10/10/2023 13:47:19 12 10-35 (U/L) Final Performing Location LABORATORY [facility] - [address] [place] [address]
--- OUTSIDE RECORDS SUMMARY | 2023-10-29 07:38 | External Medical Summary ---
Author Name Unknown Address Unknown Organization K01:LABORATORY [facility] - [address] [facility] [address] Laboratory Report Ordering Provider Test Date Status JEFFFELIBERTO 09/02/2023 08:33:47 Final Observation Date Value Abnormality Reference (Units ) Status WBC, Total 09/02/2023 08:33:47 11.96 Above high normal 4 .00-10.80 (K/uL) Final RBC 09/02/2023 08:33:47 4.27 3.85-5.15 (M/uL) Final Hemoglobin 09/02/2023 08:33:47 12.2 12.0-15.3 (g/dL) Final Anemia reflex testing trigge rs on a HGB < 12.0 for Females and HGB < 13.0 for Males in accordance with the WHO Anemia Guidelines
Anemia reflex testing triggers on a HGB < 12.0 for Females and HGB < 13.0 for Males in accordance with the WHO Anemia Guidelines HCT 09/02/2023 08:33:47 38.0 36.0-45.2 (%) Final MCV 09/02/2023 08:33:47 89.0 81.5-97.5 (fL) Final MCH 09/02/2023 08:33:47 28.6 27.0-34.0 (pg) Final MCHC 09/02/2023 08:33:47 32.1 32.0-36.0 (g/dL) Final RDW 09/02/2023 08:33:47 13.2 11.5-15.5 (%) Final Platelets 09/02/2023 08:33:47 319 140-400 (K /uL) Final MPV 09/02/2023 08:33:47 11.4 6.6-11.1 ( fL) Final Nucleated erythrocytes/100 leukocytes [Ratio] in Blood by Automated count 09/02/2023 08:33:47 0 <=0 (/100 WBCs) [facility] Performing Location LABORATORY [facility] - [address] [facility] [address]
--- OUTSIDE RECORDS SUMMARY | 2023-10-29 07:38 | External Medical Summary | Summary of Care ---
Author Name Unknown Organization [facility] Address [address] [place] [address] Phone [phone] Care Team Providers Care Avionics Safety Inspector Name Role Phone Wilmer Jones MD Primary Care Provider +1- [phone] Reason for Visit * Reason Comments New Visit Transfer from [facility] Encounter Details Date Type Department Care Team Description 07/28/2023 Office Visit Gynecology/Obstetrics [facility] [address] [place] [address] Melissa Wynn PA-C [address] [place] [address] Supervision of other normal , antepartum* Allergies Active Allergy Reactions Severity Noted Date Comments Morphine Hives 07/14/2023 documented as of this encounter (statuses as of 07/28/2023) Medications Medication Sig Dispensed Refills Start Date [...] as of this encounter (statuses as of 07/28/2023) Social History Tobacco Use Types Packs/Day Years Used Date Smoking Tobacco: Never Smokeless Tobacco: Never Tobacco Cessation:Counseling Given: Not Answered Alcohol Use Standard Drinks/Week Comments Not Currently 0 (1 standard drink = 0.6 oz pur e alcohol) Food Insecurity Answer Date Recorded Within the [...] Sign Reading Time Taken Comments Blood Pressure 128/82 07/28/2023 8:44 AM EDT Pulse - - Temperature 36.2 C (97.2 F) 07/28/2023 8:44 AM ED T Respiratory Rate - - Oxygen Saturation - - Inhaled Oxygen Concentration - - Weight 108.5 kg (239 lb 3.2 oz) 07/28/2023 8:44 AM EDT Height - - Body Mass Index 37.46 07/14/2023 9:45 AM EDT documented in this encounter Progress Notes * Melissa Wynn PA-C - 07/28/2023 8:55 AM EDT CC: NOB HPI: Nicola Mejia is a 28 year old female here for initial OB exam. AMANDA 11/12/23 by LMP. LMP: 02/05/23 menses were regular. Last menses was normal. She is taking vitamins. She plans to breastfeed infant. Reviewed PMH, social hx, family hx, surgical hx, ob hx with patient. Pertinent positives: - on ASA 81mg for preventative measures due to elevated BP at first OB visit. She has no history ofHTN. She has been monitoring BP at home - running in the 110s/70s. Reviewed current medications with patient. Last pap smear - March per patient, normal [place] Depression Scale: [place] Depression Scale Total: 2 Liberty suicide question and score: Score of 3 = Yes, quite often. Score of 2 = Sometimes. Score of 1 = Hardly ever The thought of harming myself has occurred to me.: 0 OB History Para Term AB Living 1 SAB IAB Ectopic Multiple Live Births # Outcome Date GA Lbr Jarrod/2nd Weight Sex Delivery Anes PTL Lv 1 Current Past Medical History: Diagnosis Date GERD (gastroesophageal reflux disease) Social History Socioeconomic History Marital status: Single Substance and Sexual Activity Sexual activity: Yes Partners: Male Social Determinants of Health Food Insecurity: No Food Insecurity Worried About Running Out of Food in the Last Year: Never true Ran Out of Food in the Last Year: Never true Past Surgical History: Procedure Laterality Date WA APPENDECTOMY 03/2016 Current Outpatient Medications Medication Sig Dispense Refill Aspirin 81 MG Oral Tablet Delayed Release (Aspirin 81) Take 1 Tablet by mouth in the morning. Famotidine 20 MG Oral Tablet (Pepcid) Take 1 Tablet by mouth in the morning and 1 Tablet before bedtime. Calcium Carbonate Antacid 500 MG Oral Tablet Chewable (Tums) Take 1 Tablet by mouth in the morning. Adult Gummy/DHA/FA 0.4-25 MG Oral Tablet Chewable Take by mouth. No current facility-administered medications for this visit. Review of patient's allergies indicates: Allergen Reactions Morphine Hives Family History Problem Relation Age of Onset Hypertension Mother Hypertension Grandmother (Maternal) Glaucoma Grandmother (Maternal) Hypertension Grandfather (Maternal) Lung cancer Grandmother (Paternal) Diabetes Grandmother (Paternal) Hypertension Grandmother (Paternal) Kidney cancer Grandfather (Paternal) Breast Cancer Aunt (Maternal) Breast Cancer Aunt (Maternal) Denies family history of genetic conditions in patient's and FOB's families. PHYSICAL EXAM: please see physical BP 128/82 | Temp 36.2 C (97.2 F) | Wt 108.5 kg (239 lb 3.2 oz) | LMP 02/05/2023 (Exact Date) | BMI 37.46 kg/m | BSA 2.26 m FHT- 140s Fundal height - 25 ASSESSMENT/PLAN: Supervision of other normal , antepartum (Primary) - CBC WITH WBC DIFFERENTIAL; Future; Expected date: 09/26/2023 - 50-G GESTATIONAL GLUCOSE, 1 HOUR; Future; Expected date: 09/26/2023 - TYPE AND SCREEN; Future; Expected date: 09/26/2023 - Discussed timing of routine OB care - Declines flu vaccine - recommended Covid vaccine due to increased risk of severe disease in . Patient is not vaccinated. - Recommended daily vitamin. - Discussed third trimester labs to be completed with next visit - MFM referral not indicated - RTO in 4 weeks for MATTEO GIBBONSN with concern Melissa Wynn PA-C documented in this encounter Nursing Notes * Ines Leiva LPN - 07/28/2023 8:45 AM EDT Chief Complaint Patient presents with New Visit Transfer from [facility] Patient's last menstrual period was 02/05/2023 (exact date). Patient is . Anatomy scan completed 07/14- weeks 3 days . Seen last with [facility] 06/12. Ines Leiva LPN 07/28/2023 8:46 AM documented in this encounter Plan of Treatment Upcoming Encounters Date Type Specialty Care Team Description 08/25/2023 Office Visit Gynecology Obstetrics Kingsley, Melissa Marshall PA-C [address] [place] [address] [place] [phone] Scheduled Orders Name Type Priority Associated Diagnoses Orde r Schedule CBC WITH WBC DIFFERENTIAL Lab Routine Supervision of other normal , antepartum Expected: 09/26/2023 (Approximate), Expires: 07/28/2024 50-G GESTATIONAL GLUCOSE, 1 HOUR Lab Routine Supervision of other normal , antepartum Expected: 09/26/2023 (Approximate), Expires: 07/28/2024 SYPHILIS ANTIBODY SCREEN WITH REFLEX TO RPR Lab Routine Supervision of other normal , antepartum Expected: 08/28/2023 (Approximate), Expires: 07/28/2024 Health Maintenance Due Date Last Done Comments [...] Supervision of other normal , antepartum- Primary documented in this encounter Care Teams Avionics Safety Inspector Relationship Specialty Start Date End Date Wilmer Jones MD [address] [place] [address] [place] [address] PCP - General Family Medicine 06/27/23 documented as of this encounter"
--- OUTSIDE RECORDS SUMMARY | 2023-10-29 07:38 | External Medical Summary | Summary of Care ---
Author Name Unknown Organization [facility] Address [address] [place] [address] Phone [phone] Care Team Providers Care Wrapper Stitcher Name Role Phone Wilmer Jones MD Primary Care Provider +1- [phone] Reason for Visit * Reason Onset Date Comments Forms Request 09/11/2023 Encounter Details Date Type Department Care Team (Late st Contact Info) Description 09/11/2023 Telephone Gynecology/Obstetrics [facility] [address] [place] [address] Batool Drake PA-C [address] [place], [place] [phone] Forms Request Allergies Active Allergy Reactions Criticality Noted Date Comments Morphine Hives 07/14/2023 documented as of this encounter (statuses as of 09/12/2023) Medications Medication Sig Dispensed Refills Start Date [...] as of this encounter (statuses as of 09/12/2023) Immunizations Name Administration Dates Next Due TDAP [...] money to get more. Never true 07/10/2023 [place] Depression Scale Answer Date Recorded [place] Depression Scale Total 2 09/08/2023 The thought [...] encounter Miscellaneous Notes * Telephone Encounter - Hannah Gamez - 09/12/2023 2:47 PM EST Received forms back. Faxed 09/12/23 * Telephone Encounter - Hannah Gamez - 09/11/2023 4:40 PM EST Received FMLA forms placed on Batool Drake's desk. 09/11/23 documented in this encounter Plan of Treatment Upcoming Encounters Date Type Department Care Team (Late st Contact Info) Description 09/25/2023 9:00 AM EST Office Visit Gynecology/Obstetrics [facility] [address] [facility] [address] Batool Drake [facility]C [address] [facility] [address] 10/10/2023 1:00 PM EST Office Visit Gynecology/Obstetrics [facility] [address] [facility] [place] [address] Batool Drake PA-C [address] [facility] [address] [address] 10/17/2023 1:00 PM EST Office Visit Gynecology/Obstetrics [address] [address] Batool Drake PA-C [address] [facility] [address] Health Maintenance Due Date Last Done Comments [...] filedocumented as of this encounter Care Teams Wrapper Stitcher Relationship Specialty Start Date End Date Wilmer Jones MD [address] [place] [address] PCP - General Family Medicine 06/27/23 documented as of this encounter
--- OUTSIDE RECORDS SUMMARY | 2023-10-29 07:38 | External Medical Summary | Summary of Care ---
Author Name Unknown Organization [facility] Address [address] [facility] [place] [address] Phone [phone] Care Team Providers Care Spudder Name Role Phone Wilmer Jones MD Primary Care Provider +1- [phone] Reason for Visit * Reason Comments Return Visit 35w2d Encounter Details Date Type Department Care Team (Late st Contact Info) Description 10/10/2023 1:00 PM EST Office Visit Gynecology/Obstetric s [facility] [address] [place], [place] [phone] Batool Drake PA-C [address] [place], [place] [phone] Elevated BP without diagnosis of hypertension* Allergies Active Allergy Reactions Criticality Noted Date [...] money to get more. Never true 07/10/2023 [place] Depression Scale Answer Date Recorded [place] Depression Scale Total 2 10/10/2023 The thought [...] Progress Notes * Batool Drake PA-C - 10/10/2023 12:58 PM EST [...] TempSrc: Tympanic Weight: 113.9 kg (251 lb) Environmental Sustainability Manager Documentation Provider requested rocket test fire worker. Name of rocket test fire worker: Mckenzie Chand LPN SSE: General: alert, healthy, [...] URINE - URINALYSIS OBSTETRICS, POINT OF CARE Supervision of -reassured , increase vaginal discharge [...] in 1 week Batool Drake PA-C * Breana Robbins CMA - 10/10/2023 12:56 PM EST Chief Complaint Patient presents with Return Visit 35w2d Pt here for routine . C/o pelvic pain that she describes as cramping. Noticing more fluid on underwear. Notes this to be clear documented in this encounter Plan of Treatment Upcoming Encounters Date Type Department Care Team (Late st Contact Info) Description 10/10/2023 1:50 PM EST Laboratory Laboratory, [address] [address] [facility], Lab [address] [place] [address] Supervision of other normal , antepartum; Elevated BP without diagnosis of hypertension 10/17/2023 1:00 PM EST Office Visit Gynecology/Obstetric [address] [address] Batool Drake PA-C [address] [place] [address] 10/23/2023 11:30 AM EST Office Visit Gynecology/Obstetric [address] [place] [address] Melissa Wynn PA-C [address] [place] [address] 10/28/2023 2:30 PM EST Office Visit Gynecology/Obstetric [address] [address] Batool Drake PA-C [address] [place], [place] [address] [address] 11/04/2023 1:00 PM EST Office Visit Gynecology/Obstetric [address] [address] Batool Drake PA-C [address] [place] [address] 11/10/2023 11:45 AM EST Office Visit Gynecology/Obstetric s [facility] [address] [facility] [place] [address] Melissa Wynn [facility]C [address] [facility] [address] Pending Results Name Type Priority Associated Diagnoses Date /Time AST Lab Routine Elevated BP without diagnosis of hypertension 10/10/2023 1:47 PM EST ALT Lab Routine Elevated BP without diagnosis of hypertension 10/10/2023 1:47 PM EST Scheduled Orders Name Type Priority Associated Diagnoses Orde r Schedule AST Lab Routine Elevated BP without diagnosis of hypertension Expected: 10/10/2023, Expires: 10/10/2024 ALT Lab Routine Elevated BP without diagnosis of hypertension Expected: 10/10/2023, Expires: 10/10/2024 PROTEIN/ CREATININE RATIO, URINE Lab Routine Elevated BP without diagnosis of hypertension Ordered: 10/10/2023 URINE PROTEIN, 24 HOUR Lab Routine Elevated BP without diagnosis of hypertension Ordered: 10/10/2023 CREATININE, 24 HOUR URINE Lab Routine Elevated BP without diagnosis of hypertension Ordered: 10/10/2023 URINALYSIS OBSTETRICS, POINT OF CARE Point of Care Testing - Unsolicited Results Routine Elevated BP without diagnosis of hypertension [...] as of this encounter Visit Diagnoses Diagnosis Elevated BP without diagnosis of hypertension- Primary Supervision of other normal , antepartum Elevated BP without diagnosis of hypertension documented in this encounter Care Teams Spudder Relationship Specialty Start Date End Date Wilmer Jones MD [address] [place] [address] PCP - General Family Medicine 06/27/23 documented as of this encounter
--- OUTSIDE RECORDS SUMMARY | 2023-10-29 07:38 | External Medical Summary ---
Author Name Unknown Address Unknown Organization K01:[facility] - [address] [facility] [address] [facility] [address] Laboratory Report Ordering Provider Test Date Status FELIBERTO AGUILAR 09/02/2023 08:33:47 Final Based on ACOG guideline, ges tational diabetes mellitus is diagnosed when any of the following is met:
Fasting is greater than or equal to 95 mg/dL
1 hour is greater than or equal to 180 mg/dL
2 hour is greater than or equal to 155 mg/dL
3 hour is greater than or equal to 140 mg/dL Observation Date Value Abnormality Reference (Units ) Status Glucose, fasting 09/02/2023 08:33:47 98 Above high no rmal 70-94 (mg/dL) Final Performing Location LABORATORY [facility] - [address] [facility] [address]
--- OUTSIDE RECORDS SUMMARY | 2023-10-29 07:38 | External Medical Summary ---
Author Name Unknown Address Unknown Organization [id number]:[facility] [place] [address] [facility] [place] [address] Laboratory Report Ordering Provider Test Date Status FELIBERTO AGUILAR 08/25/2023 12:15:20 Final Observation Date Value Abnormality Reference (Units ) Status Glucose [Moles/volume] in Serum or Plasma --1 hour post 50 g glucose PO 08/25/2023 12:15:20 141 Above high normal 70-129 (mg/dL) Final Performing Location [facility] [place] [address] [place] [address]
--- OUTSIDE RECORDS SUMMARY | 2023-10-29 07:38 | External Medical Summary | Summary of Care ---
Author Name Unknown Organization [facility] Address [address] [place] [facility] [place] [address] Phone [phone] Care Team Providers Care Reimbursement Representative Name Role Phone Wilmer Jones MD Primary Care Provider +1- [phone] Reason for Visit * Reason Comments Return Visit 33w1d Encounter Details Date Type Department Care Team (Late st Contact Info) Description 09/25/2023 9:00 AM EST Office Visit [facility] [address] [place] [address] Batool Drake PA-C [address] [place], [place] [phone] 33 weeks gestation of *; Uterine size date discrepancy Allergies Active Allergy Reactions Criticality Noted Date Comments Morphine Hives 07/14/2023 documented as of this encounter (statuses as of 09/25/2023) Medications Medication Sig Dispensed Refills Start Date [...] as of this encounter (statuses as of 09/25/2023) Immunizations Name Administration Dates Next Due TDAP [...] money to get more. Never true 07/10/2023 [place] Depression Scale Answer Date Recorded [place] Depression Scale Total 2 09/08/2023 The thought [...] Sign Reading Time Taken Comments Blood Pressure 128/76 09/25/2023 8:43 AM EST Pulse - - Temperature 36.7 C (98.1 F) 09/25/2023 8:43 AM ES T Respiratory Rate - - Oxygen Saturation - - Inhaled Oxygen Concentration - - Weight 112.9 kg (249 lb) 09/25/2023 8:43 AM EST Height - - Body Mass Index 39 07/14/2023 9:45 AM EDT documented in this encounter Progress Notes * Batool Drake PA-C - 09/25/2023 8:53 AM EST Nicola Mejia is a 28 year old female here for her routine OB appointment at 33w1d. Her Estimated Date of Delivery: 11/12/23 REVIEW OF SYSTEMS: She affirms movement. Denies vaginal bleeding, LOF, contractions, N/V, headaches Planning [facility] delivery at [facility]- labor instructions handout given PHYSICAL EXAM: Filed Vitals: 09/25/23 0843 BP: 128/76 Temp: 36.7 C (98.1 F) Weight: 112.9 kg (249 lb) ASSESSMENT/PLAN: Uterine size date discrepancy - US PREG FOLLOW-UP EACH FETUS; Future; Expected date: 09/25/2023 (Z3A.33) 33 weeks gestation of - recommended flu vaccine - patient declines today - discussed GBS and to expect swab to be complete at next visit - Reviewed labor precautions,loss of fluid, vaginal bleeding, round ligament pain, and encouraged hydration. - RTO in 2 weeks Batool Drake PA-C documented in this encounter Nursing Notes * Janelle Bryant RN - 09/25/2023 8:41 AM EST Chief Complaint Patient presents with Return Visit 33w1d Pt describes worsening hip pain and increased pelvic pressure. Janelle Bryant RN documented in this encounter Plan of Treatment Upcoming Encounters Date Type Department Care Team (Late st Contact Info) Description 10/10/2023 1:00 PM EST Office Visit [facility]necology[facility] [address] [place] [address] Batool Drake PA-C [address] [place] [address] 10/17/2023 1:00 PM EST Office Visit [facility] [address] [place] [address] Batool Drake PA-C [address] [place] [address] Scheduled Orders Name Type Priority Associated Diagnoses Orde r Schedule US PREG FOLLOW-UP EACH FETUS Medical Imaging Routine Uterine size date discrepancy Expected: 09/25/2023, Expires: 10/25/2024 Health Maintenance Due Date Last Done Comments [...] as of this encounter Visit Diagnoses Diagnosis 33 weeks gestation of - Primary state, incidental Uterine size date discrepancy Uterine size date discrepancy, antepartum condition or complication documented in this encounter Care Teams Reimbursement Representative Relationship Specialty Start Date End Date Wilmer Jones MD [address] [place] [address] PCP - General Family Medicine 06/27/23 documented as of this encounter
--- OUTSIDE RECORDS SUMMARY | 2023-10-29 07:38 | External Medical Summary | Summary of Care ---
Author Name Unknown Organization [facility] Address [address] [place] [address] Phone [phone] Care Team Providers Care Financial Controller Name Role Phone Wilmer Jones MD Primary Care Provider +1- [phone] Reason for Visit * Reason Comments Outpatient Testing Encounter Details Date Type Department Care Team (Late st Contact Info) Description 10/10/2023 1:50 PM EST Laboratory Laboratory, [facility] [address] [place] [phone] [facility], Lab [address] [place], [place] [phone] Supervision of other normal , antepartum; Elevated BP without diagnosis of hypertension Allergies Active Allergy Reactions Criticality Noted Date [...] money to get more. Never true 07/10/2023 [place] Depression Scale Answer Date Recorded [place] Depression Scale Total 2 10/10/2023 The thought [...] 10/17/2023 1:00 PM EST Office Visit Gynecology/Obstetrics [facility] [address] [place] [address] Batool Drake PA-C [address] [place] [address] 10/23/2023 11:30 AM EST Office Visit Gynecology/Obstetric[facility] [address] [facility] [address] Melissa Wynn PA-C 400 [place] [address] 10/28/2023 2:30 PM EST Office [address]etric[facility] [address] [address] Batool Drake [facility]-C [facility] [address] 11/04/2023 1:00 PM EST [address] [address] Batool Drake PA-C [address] [facility] [address] 11/10/2023 11:45 AM EST [facility] [address] [address] Melissa Wynn PA-C [address] [place] [address] Pending Results Name Type Priority Associated Diagnoses Date /Time CBC WITH WBC DIFFERENTIAL Lab Routine Supervision of other normal , antepartum 10/10/2023 1:47 PM EST AST Lab Routine Elevated BP without diagnosis of hypertension 10/10/2023 1:47 PM EST ALT Lab Routine Elevated BP without diagnosis of hypertension 10/10/2023 1:47 PM EST CBC Lab Routine Supervision of other normal , antepartum 10/10/2023 1:47 PM EST DIFFERENTIAL, AUTOMATED Lab Routine Supervision of other normal , antepartum 10/10/2023 1:47 PM EST Health Maintenance Due Date Last [...] Diagnosis Supervision of other normal , antepartum Elevated BP without diagnosis of hypertension documented in this encounter Care Teams Financial Controller Relationship Specialty Start Date End Date Wilmer Jones MD [address] [place] [address] PCP - General Family Medicine 06/27/23 documented as of this encounter
--- OUTSIDE RECORDS SUMMARY | 2023-10-29 07:38 | External Medical Summary | Summary of Care ---
Author Name Unknown Organization [facility] Address [address] [place] [address] Phone [phone] Care Team Providers Care Assembler Finger Buffs Name Role Phone Wilmer Jones MD Primary Care Provider +1- [phone] Reason for Visit * Reason Comments Outpatient Testing Encounter Details Date Type Department Care Team (Late st Contact Info) Description 09/02/2023 8:30 AM EST Laboratory Laboratory, [facility] [address] [place] [phone] [facility], Lab [address] [place] [address] Abnormal glucose tolerance in mother complicating ; Supervision of other normal , antepartum Allergies Active Allergy Reactions Criticality Noted Date Comments Morphine Hives 07/14/2023 documented as of this encounter (statuses as of 09/02/2023) Medications Medication Sig Dispensed Refills Start Date [...] as of this encounter (statuses as of 09/02/2023) Immunizations Name Administration Dates Next Due TDAP [...] money to get more. Never true 07/10/2023 [place] Depression Scale Answer Date Recorded [place] Depression Scale Total 2 07/28/2023 The thought [...] 09/08/2023 1:00 PM EST Office Visit Gynecology/Obstetrics [facility] [address] [place] [address] Batool Drake PA-C [address] [place] [phone] Pending Results Name Type Priority Associated Diagnoses Date /Time GESTATIONAL GLUCOSE TOLERANCE, 3 HOUR Lab Routine Abnormal glucose tolerance in mother complicating 09/02/2023 8:33 AM EST CBC WITH WBC DIFFERENTIAL AND ANEMIA REFLEX WORKUP Lab Routine Supervision of other normal , antepartum 09/02/2023 8:33 AM EST 100-G GESTATIONAL GLUCOSE, FASTING Lab Routine Abnormal glucose tolerance in mother complicating 09/02/2023 8:33 AM EST ANEMIA CBC Lab Routine Supervision of other normal , antepartum 09/02/2023 8:33 AM EST DIFFERENTIAL, AUTOMATED Lab Routine Supervision of other normal , antepartum 09/02/2023 8:33 AM EST ANEMIA REFLEX CHEMISTRY HOLD Lab Routine Supervision of other normal , antepartum 09/02/2023 8:33 AM EST 100-G GESTATIONAL GLUCOSE, 1 HOUR Lab Routine Abnormal glucose tolerance in mother complicating 09/02/2023 9:38 AM EST 100-G GESTATIONAL GLUCOSE, 2 HOUR Lab Routine Abnormal glucose tolerance in mother complicating 09/02/2023 10:40 AM EST 100-G GESTATIONAL GLUCOSE, 3 HOUR Lab Routine Abnormal glucose tolerance in mother complicating 09/02/2023 11:34 AM EST Health Maintenance Due Date Last Done [...] as of this encounter Visit Diagnoses Diagnosis Abnormal glucose tolerance in mother complicating Abnormal maternal glucose tolerance, complicating , childbirth, or the puerperium, unspecified as to episode of care Supervision of other normal , antepartum documented in this encounter Care Teams Assembler Finger Buffs Relationship Specialty Start Date End Date Wilmer Jones MD [address] [place] [address] PCP - General Family Medicine 06/27/23 documented as of this encounter
--- OUTSIDE RECORDS SUMMARY | 2023-10-29 07:38 | External Medical Summary | Summary of Care ---
Author Name Unknown Organization [facility] Address [address] [facility] [place] [address] Phone [phone] Care Team Providers Care Ripening Room Attendant Name Role Phone Wilmer Jones MD Primary Care Provider +1- [phone] Reason for Visit * Reason Comments Return Visit 35w2d Encounter Details Date Type Department Care Team (Late st Contact Info) Description 10/10/2023 1:00 PM EST Office Visit Gynecology/Obstetric s [facility] [address] [place], [place] [phone] Batool Drake PA-C [address] [place], [place] [phone] Elevated BP without diagnosis of hypertension* Allergies [...] money to get more. Never true 07/10/2023 [place] Depression Scale Answer Date Recorded [place] Depression Scale Total 2 10/10/2023 The thought [...] TempSrc: Tympanic Weight: 113.9 kg (251 lb) Linux Systems Engineer Documentation Provider requested casino floor person. Name of casino floor person: Mckenzie Chand LPN SSE: General: alert, healthy, [...] 10/17/2023 1:00 PM EST Office Visit Gynecology/Obstetrics [address] [address] Batool Drake PA-C [address] [place] [address] 10/23/2023 11:30 AM EST Office Visit [address] [address] Melissa Wynn PA-C [address] [place] [address] 10/28/2023 2:30 PM EST [facility] [address] [address] Batool Drake PA-C [address] [place] [address] [place] [address] 11/04/2023 1:00 PM EST Office Visit [facility]/Obstetrics [address] [address] Batool Drake PA-C [address] [place], [place] [address] [address] 11/10/2023 11:45 AM EST Office Visit [address] [address] Melissa Wynn PA-C [address] [place], [place] [address], [place] [address] Pending Results Name Type Priority Associated Diagnoses Date /Time AST Lab Routine Elevated BP without diagnosis of hypertension 10/10/2023 1:47 PM EST ALT Lab Routine Elevated BP without diagnosis of hypertension 10/10/2023 1:47 PM EST PROTEIN/ CREATININE RATIO, URINE Lab Routine Elevated BP without diagnosis of hypertension 10/10/2023 1:52 PM EST URINALYSIS OBSTETRICS, POINT OF CARE Point of Care Testing - Unsolicited Results Routine Elevated BP without diagnosis of hypertension 10/10/2023 1:51 PM EST Scheduled Orders Name Type Priority [...] Elevated BP without diagnosis of hypertension- Primary documented in this encounter Care Teams Ripening Room Attendant Relationship Specialty Start Date End Date Wilmer Jones MD [address] [phone] PCP - General Family Medicine 06/27/23 documented as of this encounter
--- OUTSIDE RECORDS SUMMARY | 2023-10-29 07:38 | External Medical Summary | Summary of Care ---
Author Name Unknown Organization [facility] Address [address] [facility] [place] [address] Phone [phone] Care Team Providers Care Engineer Chief Name Role Phone Wilmer Jones MD Primary Care Provider +1- [phone] Reason for Visit * Reason Comments Return Visit 35w2d Encounter Details Date Type Department Care Team (Late st Contact Info) Description 10/10/2023 1:00 PM EST Office Visit Gynecology/Obstetric s [facility] [address] [place], [place] [phone] Batool Drake PA-C [address] [place], [place] [phone] Elevated BP without diagnosis of hypertension* Allergies [...] money to get more. Never true 07/10/2023 [place] Depression Scale Answer Date Recorded [place] Depression Scale Total 2 10/10/2023 The thought [...] TempSrc: Tympanic Weight: 113.9 kg (251 lb) Upholstery Department Supervisor Documentation Provider requested radio dispatcher. Name of radio dispatcher: Mckenzie Chand LPN SSE: General: alert, healthy, [...] 10/17/2023 1:00 PM EST Office Visit Gynecology/Obstetrics [address] [address] Batool Drake PA-C [address] [place] [address] 10/23/2023 11:30 AM EST Office Visit [address] [address] Melissa Wynn PA-C [address] [place] [address] 10/28/2023 2:30 PM EST [facility] [address] [address] Batool Drake PA-C [address] [place] [address] [place] [address] 11/04/2023 1:00 PM EST Office Visit [facility]Obstetrics [address] [address] Batool Drake PA-C [address] [place], [place] [address] [address] 11/10/2023 11:45 AM EST Office [address] [address] Meilssa Wynn PA-C [address] [place], [place] [address], [place] [address] Scheduled Orders Name Type Priority Associated Diagnoses Orde r Schedule PLT Lab Routine Elevated BP without diagnosis of hypertension Expected: 10/10/2023, Expires: 10/10/2024 AST Lab Routine Elevated BP without diagnosis [...] Primary documented in this encounter Care Teams Engineer Chief Relationship Specialty Start Date End Date Wilmer Jones MD [address] [place] [address] PCP - General Family Medicine 06/27/23 documented as of this encounter
--- OUTSIDE RECORDS SUMMARY | 2023-10-29 07:38 | External Medical Summary ---
Author Name Unknown Address Unknown Organization [id number]:[facility] - [address] [facility] [address] Laboratory Report Ordering Provider Test Date Status FELIBERTO AGUILAR 10/10/2023 13:47:19 Final Observation Date Value Abnormality Reference (Units ) Status SYNC LEUKOCYTES IN BLOOD BY AUTOMATED COUNT 10/10/2023 13:47:19 15.09 Above high normal 4.00-10.80 (K/uL) Final Segs 10/10/2023 13:47:19 80.5 Above high normal 40.0-75.0 (%) Final Lymphs % 10/10/2023 13:47:19 11.8 Below low normal 18.0-42.0 (%) Final Monos 10/10/2023 13:47:19 5.8 1.0-11.0 (%) Final Eosinophils 10/10/2023 13:47:19 0.6 0.0-6.0 (%) Final Basos 10/10/2023 13:47:19 0.4 0.0-2.0 (%) Final Immature Granulocyte, Percent 10/10/2023 13:47:19 0.9 0.0-2.0 (%) Final Absolute Segs 10/10/2023 13:47:19 12.16 Above high normal 1.80-7.70 (K/uL) Final Lymphs, absolute 10/10/2023 13:47:19 1.78 1.00-4.80 (K/ul) Final Monos, Abs 10/10/2023 13:47:19 0.87 0.00-1.10 (K/uL) Final Eos, Abs 10/10/2023 13:47:19 0.09 0.00-0.70 (K/uL) Final Basos, Abs 10/10/2023 13:47:19 0.06 0.00-0.20 (K/uL) Final Immature Granulocytes, Number 10/10/2023 13:47:19 0.13 0.00-0.20 (K/uL) Final Performing Location [facility] - [facility] [place] [address]
--- OUTSIDE RECORDS SUMMARY | 2023-10-29 07:38 | External Medical Summary | Summary of Care ---
Author Name Unknown Organization [facility] Address [address] [place] [facility] [place] [address] Phone [phone] Care Team Providers Care Health Careers Instructor Name Role Phone Wilmer Jones MD Primary Care Provider +1- [phone] Reason for Visit * Reason Comments Return Visit 33w1d Encounter Details Date Type Department Care Team (Late st Contact Info) Description 09/25/2023 9:00 AM EST Office Visit Gynecology/Obstetric s [facility] 400 [place] [address] Batool Drake PA-C 400 [place], [place] [phone] 33 weeks gestation of *; Uterine size [...] money to get more. Never true 07/10/2023 [place] Depression Scale Answer Date Recorded [place] Depression Scale Total 2 09/08/2023 The thought [...] contractions, N/V, headaches Planning [facility] at [facility] labor instructions handout given PHYSICAL EXAM: Filed [...] Team (Late st Contact Info) Description 09/25/2023 11:15 AM EST Imaging Gynecology/Obstetrics [place] [address] [place] [address] 10/10/2023 1:00 PM EST Office Visit Gynecology/Obstetrics [facility] [address] [place] [address] Batool Drake PA-C [address] [place] [address] 10/17/2023 1:00 PM EST Office Visit Gynecology/Obstetrics [facility] [address] [place] [address] Batool Drake PA-C [address] [place] [address] Scheduled Orders Name Type Priority Associated Diagnoses [...] complication documented in this encounter Care Teams Health Careers Instructor Relationship Specialty Start Date End Date Wilmer Jones MD [address] [place] [address] PCP - General Family Medicine 06/27/23 documented as of this encounter
--- OUTSIDE RECORDS SUMMARY | 2023-10-29 07:38 | External Medical Summary ---
Author Name Unknown Address Unknown Organization [id number]:[facility] [place] [address] [place] [address] Laboratory Report Ordering Provider Test Date Status FELIBERTO AGUILAR 09/02/2023 11:34:46 Final Observation Date Value Abnormality Reference (Units ) Status Glucose [Mass/volume] in Serum or Plasma --3 hours post dose glucose 09/02/2023 11:34:46 86 70-139 (mg/dL) Final Performing Location [facility] [place] [address] [place] [address]
--- OUTSIDE RECORDS SUMMARY | 2023-10-29 07:38 | External Medical Summary ---
Author Name Unknown Address Unknown Organization [id number]:[facility] - [address] [facility] [address] Laboratory Report Ordering Provider Test Date Status FELIBERTO AGUILAR 09/02/2023 10:40:00 Final Observation Date Value Abnormality Reference (Units ) Status Glucose, 2-hr post glucose challenge 09/02/2023 10:40:00 115 70-154 (mg/dL) Final Performing Location [facility] - [address] [facility] [address]
--- OUTSIDE RECORDS SUMMARY | 2023-10-29 07:38 | External Medical Summary ---
Author Name Unknown Address Unknown Organization : Laboratory Report Ordering Provider Test Date Status NICOLE MOURA 10/10/2023 13:51:00 Final Observation Date Value Abnormality Reference (Units ) Status Color of Urine by Auto 10/10/2023 13:51:00 Yellow Light Yellow, Yellow Final Clarity, Urine 10/10/2023 13:51:00 Clear Clear Final Glucose [Mass/volume] in Urine by Automated test strip 10/10/2023 13:51:00 Negative Negative (mg/dL) Final Bilirubin.total [Presence] in Urine by Automated test strip 10/10/2023 13:51:00 Negative Negative Final Ketones [Mass/volume] in Urine by Automated test strip 10/10/2023 13:51:00 Negative Negative (mg/dL) Final Specific gravity, Urine 10/10/2023 13:51:00 >=1.030 1.003-1.030 Final Hemoglobin [Presence] in Urine by Automated test strip 10/10/2023 13:51:00 Moderate Abnormal Negative Final pH, Urine 10/10/2023 13:51:00 6.0 5.0, 5.5, 6.0, 6.5, 7.0, 7.5 (units) Final Protein [Mass/volume] in Urine by Automated test strip 10/10/2023 13:51:00 100 Abnormal Negative (mg/dL) Final Urobilinogen, Urine 10/10/2023 13:51:00 0.2 0.2, 1.0 (mg/dL) Final Nitrite [Presence] in Urine by Automated test strip 10/10/2023 13:51:00 Negative Negative Final Leukocyte esterase [Presence] in Urine by Automated test strip 10/10/2023 13:51:00 Negative Negative Final Performing Location
--- OUTSIDE RECORDS SUMMARY | 2023-10-29 07:38 | External Medical Summary ---
Author Name Unknown Address Unknown Organization [id number]:[facility] [place] - [address] [place] [address] Laboratory Report Ordering Provider Test Date Status NICOLE MOURA 10/10/2023 13:52:33 Final Normal: <150 mg/ g creatinine
High: 150-500 mg/g creatinine
Very High: >500 mg/g creatinine
Nephrotic: >3000 mg/g creatinine Observation Date Value Abnormality Reference (Units ) Status Protein/Creatinine [Ratio] in Urine 10/10/2023 13:52:33 276 Above high normal <150 (mg/g ) Final Protein, Urine 10/10/2023 13:52:33 45 (mg/dL) Final Creatinine, Urine 10/10/2023 13:52:33 163 (mg/dL) Final Performing Location [facility] [place] - [address] [place] [address]
--- OUTSIDE RECORDS SUMMARY | 2023-10-29 07:38 | External Medical Summary ---
Author Name Unknown Address Unknown Organization [id number]:[facility] [facility] [address] [facility] [facility] [address] [facility] [address] Laboratory Report Ordering Provider Test Date Status JEFF,FELIBERTO 10/10/2023 13:47:19 Final Observation Date Value Abnormality Reference (Units ) Status WBC, Total 10/10/2023 13:47:19 15.09 Above high normal 4.00-10.80 (K/uL) Final RBC 10/10/2023 13:47:19 4.44 3.85-5.15 (M/uL) Final Hemoglobin 10/10/2023 13:47:19 12.3 12.0-15.3 (g/dL) Final HCT 10/10/2023 13:47:19 38.7 36.0-45.2 (%) Final MCV 10/10/2023 13:47:19 87.2 81.5-97.5 (fL) Final MCH 10/10/2023 13:47:19 27.7 27.0-34.0 (pg) Final MCHC 10/10/2023 13:47:19 31.8 32.0-36.0 (g/dL) Final RDW 10/10/2023 13:47:19 13.6 11.5-15.5 (%) Final Platelets 10/10/2023 13:47:19 347 140-400 (K/uL) Final MPV 10/10/2023 13:47:19 10.8 6.6-11.1 (fL) Final Nucleated erythrocytes/100 leukocytes [Ratio] in Blood by Automated count 10/10/2023 13:47:19 0 <=0 (/100 WBCs) Final Performing Location [facility] [place] [facility] [address] [facility] [place] [address]
--- OUTSIDE RECORDS SUMMARY | 2023-10-29 07:38 | External Medical Summary | Summary of Care ---
Author Name Unknown Organization [facility] Address [address] [place] [address] Phone [phone] Care Team Providers Care Formal Wear Rental Clerk Name Role Phone Wilmer Jones MD Primary Care Provider +1- [phone] Reason for Visit * Reason Comments Return Visit [id number] Encounter Details Date Type Department Care Team (Late st Contact Info) Description 10/10/2023 1:00 PM EST Office Visit Gynecology/Obstetric s [facility] [address] [place], [place] [phone] Batool Drake PA-C [address] [place], [place] [phone] Elevated BP without diagnosis of hypertension* Allergies [...] money to get more. Never true 07/10/2023 [place] Depression Scale Answer Date Recorded [place] Depression Scale Total 2 10/10/2023 The thought [...] TempSrc: Tympanic Weight: 113.9 kg (251 lb) Employment Evaluator/Case Manager Documentation Provider requested appeals court associate justice. Name of appeals court associate justice: Mckenzie Chand LPN SSE: General: alert, healthy, [...] 10/17/2023 1:00 PM EST Office Visit Gynecology/Obstetrics [address] [address] Batool Drake PA-C [address] [place] [address] 10/23/2023 11:30 AM EST Office Visit [address] [address] Melissa Wynn PA-C [address] [place] [address] 10/28/2023 2:30 PM EST [facility] [address] [address] Batool Drake PA-C [address] [place] [address] [place] [address] 11/04/2023 1:00 PM EST Office Visit [facility] [address] [address] Batool Drake PA-C [address] [place], [place] [address] [address] 11/10/2023 11:45 AM EST Office [address] [address] Melissa Wynn PA-C [address] [place], [place] [address], [place] [address] Pending Results Name Type Priority Associated Diagnoses [...] Primary documented in this encounter Care Teams Formal Wear Rental Clerk Relationship Specialty Start Date End Date Wilmer Jones MD [address] [phone] PCP - General Family Medicine 06/27/23 documented as of this encounter
--- OUTSIDE RECORDS SUMMARY | 2023-10-29 07:38 | External Medical Summary | Summary of Care ---
Author Name Unknown Organization [facility] Address [address] [facility] [place] [address] Phone [phone] Care Team Providers Care Veterinary Assistant Technician Name Role Phone Wilmer Jones MD Primary Care Provider +1- [phone] Encounter Details Date Type Department Care Team (Late st Contact Info) Description 04/18/2023 Orders Only Gynecology/Obstetrics [facility] [address] [place] [address] Melissa Wynn PA-C 400 [place], [place] [phone] Allergies Active Allergy Reactions Criticality Noted Date Comments Morphine Hives 07/14/2023 documented as of this encounter (statuses as of 08/27/2023) Medications No known medicationsdocumented as of this encounter (statuses as of 08/27/2023) Social History Tobacco Use Types Packs/Day Years Used Date Smoking Tobacco: Never Assessed Hunger Vital Sign Answer Date Recorded Within the past 12 months, y ou worried that your food would run out before you got the money to buy more. Never true 07/10/20 23 Within the past 12 months, t he food you bought just didn't last and you didn't have money to get more. Never true 07/10/2023 [place] Depression Scale Answer Date Recorded [place] Depression Scale Total 2 07/28/2023 The thought of harming myself has occurred to me . Never 07/28/2023 Sex and Gender Information Value Date Recorded [...] 09/08/2023 1:00 PM EST Office Visit Gynecology/Obstetrics [facility] [address] [place] [address] Batool Drake PA-C [address] [facility] [place] [address] Health Maintenance Due Date Last Done Comments Hepatitis B (1 of 3 - 3-dose series) 1997 COVID-19 Vaccine (#1) 1997 GARDASIL-HPV IMMUNIZATION SERIES (1 - 2-dose series) 2008 Depression Screening 2009 Hepatitis C Screening 2015 Influenza Vaccine (FLU shot) (#1) 2023 Pap Smear 08/27/2026 04/18/2023 DTaP,Tdap,and Td Vaccines (3 - Td [...] Procedure Name Priority Date/Time Associated Diagnosis Comments PAP SMEAR, OUTSIDE PROCEDURE Routine 04/18/2023 documented in this encounter Results * PAP SMEAR, OUTSIDE PROCEDURE (04/18/2023) 04/18/2023 History Per Patient LABORATORY OUTSIDE LAB (SEE SCANNED REPORT) documented in this encounter Care Teams Veterinary Assistant Technician Relationship Specialty Start Date End Date Wilmer Jones MD [address] [phone] PCP - General Family Medicine 06/27/23 documented as of this encounter
--- OUTSIDE RECORDS SUMMARY | 2023-10-29 07:38 | External Medical Summary ---
Author Name Unknown Address Unknown Organization [id number]:LABORATORY [facility] - [address] [place] [address] Laboratory Report Ordering Provider Test Date Status NICOLE MOURA 10/10/2023 13:47:19 Final Observation Date Value Abnormality Reference (Units ) Status AST (Aspartate aminotransferase) 10/10/2023 13:47:19 13 10-35 (U/L) Final Performing Location LABORATORY [facility] - [address] [place] [address]
--- OUTSIDE RECORDS SUMMARY | 2023-10-29 07:38 | External Medical Summary ---
Author Name Unknown Address Unknown Organization [id number]:LABORATORY [facility] - [address] [place] [address] Laboratory Report Ordering Provider Test Date Status FELIBERTO AGUILAR 09/02/2023 09:38:34 Final Observation Date Value Abnormality Reference (Units ) Status Glucose [Mass/volume] in Serum or Plasma --1 hour post dose glucose 09/02/2023 09:38:34 160 70-179 (mg/dL) Final Performing Location LABORATORY [facility] - [address] [place] [address]
--- OUTSIDE RECORDS SUMMARY | 2023-10-29 07:38 | External Medical Summary ---
Author Name Unknown Address Unknown Organization [id number]:LABORATORY [facility] - [address] [place] [address] Laboratory Report Ordering Provider Test Date Status NICOLE MOURA 10/10/2023 13:47:19 Final Observation Date Value Abnormality Reference (Units ) Status BUN 10/10/2023 13:47:19 8 6-20 (mg/dL) Final Creatinine 10/10/2023 13:47:19 0.5 0.5-1.0 (mg/dL) Final Glomerular filtration rate/1.73 sq M.predicted [Volume Rate/Area] in Serum, Plasma or Blood by Creatinine-based formula (CKD-EPI) 10/10/2023 13:47:19 >90 >=60 (mL/min) Final eGFR is calculated based on the CKD-EPI 2020 equation SODIUM 10/10/2023 13:47:19 136 135-146 (m mol/L) Final Potassium 10/10/2023 13:47:19 4.0 3.5-5.1 (m mol/L) Final Cl 10/10/2023 13:47:19 103 98-107 (mm ol/L) Final CO2 10/10/2023 13:47:19 22 22-32 (mmo l/L) Final Anion gap 10/10/2023 13:47:19 11 7-15 (mmol /L) Final Glucose 10/10/2023 13:47:19 83 70-120 (mg /dL) Final Albumin 10/10/2023 13:47:19 3.6 Below low normal 3.8 -5.0 (g/dL) Final AST (Aspartate aminotransferase) 10/10/2023 13:47:19 13 10-35 (U/L) Fin al Alk Phos 10/10/2023 13:47:19 122 35-130 (U/ L) Final Bilirubin, Total 10/10/2023 13:47:19 <0.2 <=1 .2 (mg/dL) Final Calcium 10/10/2023 13:47:19 9.4 8.4-10.2 ( mg/dL) Final Protein 10/10/2023 13:47:19 6.8 6.0-8.3 (g /dL) Final ALT (Alanine aminotransferase) 10/10/2023 13:47:19 12 10-35 (U/L) Bruce campos Performing Location LABORATORY [facility] - [address] [place], [place] [address]is[address]. [place] [address]
--- OUTSIDE RECORDS SUMMARY | 2023-10-29 07:38 | External Medical Summary ---
Author Name Unknown Address Unknown Organization [id number]:LABORATORY [facility] - [address] [facility] [address] Laboratory Report Ordering Provider Test Date Status FELIBERTO AGUILAR 09/02/2023 08:33:47 Final Observation Date Value Abnormality Reference (Units ) Status SYNC LEUKOCYTES IN BLOOD BY AUTOMATED COUNT 09/02/2023 08:33:47 11.96 Above high normal 4.00-10.80 (K/uL) Final Segs 09/02/2023 08:33:47 79.4 Above high normal 40.0-75.0 (%) Final Lymphs % 09/02/2023 08:33:47 12.0 Below low normal 18.0-42.0 (%) Final Monos 09/02/2023 08:33:47 5.7 1.0-11.0 (%) Final Eosinophils 09/02/2023 08:33:47 1.3 0.0-6.0 (%) Final Basos 09/02/2023 08:33:47 0.5 0.0-2.0 (%) Final Immature Granulocyte, Percent 09/02/2023 08:33:47 1.1 0.0-2.0 (%) Final Absolute Segs 09/02/2023 08:33:47 9.51 Above high normal 1.80-7.70 (K/uL) Final Lymphs, absolute 09/02/2023 08:33:47 1.43 1.00-4.80 (K/ul) Final Monos, Abs 09/02/2023 08:33:47 0.68 0.00-1.10 (K/uL) Final Eos, Abs 09/02/2023 08:33:47 0.15 0.00-0.70 (K/uL) Final Basos, Abs 09/02/2023 08:33:47 0.06 0.00-0.20 (K/uL) Final Immature Granulocytes, Number 09/02/2023 08:33:47 0.13 0.00-0.20 (K/uL) Final Performing Location LABORATORY [facility] - [facility] [place] [address]
--- OUTSIDE RECORDS SUMMARY | 2023-10-29 07:39 | External Medical Summary | Summary of Care ---
Author Name Unknown Organization [facility] Address [address] [place] [address] Phone [phone] Care Team Providers Care Keno Dealer Name Role Phone Wilmer Jones MD Primary Care Provider +1- [phone] Encounter Details Date Type Department Care Team Description 07/07/2023 Telephone Gynecology/Obstetrics [facility] [address] [place] [address] Avril Turk MD [address] [place] [address] Social History Tobacco Use Types Packs/Day Years Used Date Smoking Tobacco: Never Assessed Sex Assigned at Date Recorded Not on file documented as of this encounter Plan of Treatment Upcoming Encounters Date Type Specialty Care Team Description 07/14/2023 Imaging Radiology 07/14/2023 Nurse Only Gynecology Obstetrics [place], [facility] Nurse [facility] [address] [place], [place] [phone] 07/28/2023 Office Visit Gynecology Obstetrics Melissa Wynn PA-C [address] [place] [address] Health Maintenance Due Date Last Done Comments Hepatitis B (1 of 3 - 3-dose series) 1997 COVID-19 Vaccine (#1) 1997 GARDASIL-HPV IMMUNIZATION SE [place]ARDO (1 - 2-dose series) 2008 Depression Screening 2009 HIV Screening 2012 Hepatitis C Screening 2015 DTaP,Tdap,and Td Vaccines (1 - Tdap) 2016 Pap Smear 2018 Influenza Vaccine (FLU shot) (#1) 2023 MENINGOCOCCAL (MENACTRA/MENVEO) Aged Out No longer eligible based on patient's age to complete this topic Pneumococcal Vaccine: Pediat rics (0 to 5 Years) and At-Risk Patients (6 to 64 Years) Aged Out No longer eligible b ased on patient's age to complete this topic documented as of this encounter Medical Devices Not on filedocumented as of this encounter Care Teams Keno Dealer Relationship Specialty Start Date End Date Wilmer Jones MD [address] [place] [address] [place] [phone] PCP - General Family Medicine 06/27/23 documented as of this encounter
--- OUTSIDE RECORDS SUMMARY | 2023-10-29 07:39 | External Medical Summary | Summary of Care ---
Author Name Unknown Organization [facility] Address [address] [place] [address] Phone [phone] Care Team Providers Care Senior Power Plant Operator Name Role Phone Wilmer Jones MD Primary Care Provider +1- [phone] Reason for Visit * Reason Onset Date Comments Fax 06/27/2023 Encounter Details Date Type Department Care Team Description 06/27/2023 Telephone Gynecology/Obstetrics [facility] [address] [place] [address] Alma Lawrence CN 400 [place] [address] Fax Social History Tobacco Use Types Packs/Day Years Used Date Smoking Tobacco: Never Assessed Sex Assigned at Date Recorded Not on file documented as of this encounter Miscellaneous Notes * Telephone Encounter - ANA Branham - 07/01/2023 10:01 AM EDT Pt scheduled * Telephone Encounter - ANA Marmolejo - 07/01/2023 8:34 AM EDT Pt called in regards to her records being faxed over. Pt wanted to verify if we received them. No records scanned into chart, please see previous encounter for appt * Telephone Encounter - Jesus Jenkins RN - 06/27/2023 9:23 AM EDT Patient calling to transfer care form [facility]. Please call patient and schedule for NOB. Patient is currently 20 weeks . Phone number verified Thanks Jesus Jenkins, RN documented in this encounter Plan of Treatment Upcoming Encounters Date Type Specialty Care Team Description 07/14/2023 Nurse Only Gynecology Obstetrics [place], Intake Nurse New [address] [address] 07/28/2023 Office Visit Gynecology Obstetrics Melissa Wynn PA-C [address] [phone] Health Maintenance Due Date Last Done Comments Hepatitis B (1 of 3 - 3-dose series) 1997 COVID-19 Vaccine (#1) 1997 GARDASIL-HPV IMMUNIZATION SE GERARDO (1 - 2-dose series) 2008 Depression Screening, Annual for Pts 12 and Over 2009 HIV Screening 2012 Hepatitis C Screening [...] filedocumented as of this encounter Care Teams Senior Power Plant Operator Relationship Specialty Start Date End Date Wilmer Jones MD [address] [place] [phone] PCP - General Family Medicine 06/27/23 documented as of this encounter
--- OUTSIDE RECORDS SUMMARY | 2023-10-29 07:39 | External Medical Summary | Summary of Care ---
Author Name Unknown Organization [facility] Address [address] [facility] [place] [address] Phone [phone] Care Team Providers Care Computer Animator Name Role Phone Wilmer Jones MD Primary Care Provider +1- [phone] Reason for Visit * Reason Onset Date Comments Order Request 07/11/2023 Encounter Details Date Type Department Care Team Description 07/11/2023 Telephone Gynecology/Obstetrics Justyn Knapp [address] [place] [address] Melissa Wynn PA-C [address] [place] [phone] Order Request Social History Tobacco Use Types Packs/Day Years [...] money to get more. Never true 07/10/2023 Sex Assigned at Date Recorded Female 07/10/2023 2:56 PM E DT documented as of this encounter Miscellaneous Notes * Telephone Encounter - Melissa Wynn PA-C - 07/11/2023 3:16 PM EDT Signed * Telephone Encounter - Jesus Jenkins RN - 07/11/2023 9:36 AM EDT Anatomy US order pended, please sign if agreeable. Thanks Jesus Jenkins RN * Telephone Encounter - Argentina Wick RDMS - 07/11/2023 8:23 AM EDT Nicola is scheduled on 07/14 for an anatomy ultrasound. Can you please place a >14 week ob order? Thank you, Ultrasound documented in this encounter Plan of Treatment Upcoming Encounters Date Type Specialty Care Team Description 07/14/2023 Imaging Radiology 07/14/2023 Nurse Only Gynecology Obstetrics Bee Branch, Intake Nurse New [address] [place] [address] 07/28/2023 Office Visit Gynecology Obstetrics Melissa Wynn PA-C [address] [place] [phone] Scheduled Orders Name Type Priority Associated Diagnoses Orde r Schedule US PREG SINGLE/1ST GEST, 14 WEEKS OR LATER Medical Imaging Routine Early stage of Expected: 07/14/2023, Expires: 08/10/2024 Health Maintenance Due Date Last Done Comments [...] as of this encounter Visit Diagnoses Diagnosis Early stage of - Primary documented in this encounter Care Teams Computer Animator Relationship Specialty Start Date End Date Wilmer Jones MD [address] [place] [address] [place] [address] PCP - General Family Medicine 06/27/23 documented as of this encounter
[2023-10-29] MEDS ORDERED: OXYTOCIN 30 UNITS/NSS 30 UNITS/500 ML BAG IV PRN (10:07)
[2023-10-29] MEDS ORDERED: LIDOCAINE 1% LOCAL 20 ML VIAL INFIL PRN (10:07)
[2023-10-29] MEDS ORDERED: PENICILLIN GK 6 MU in DEXTROSE 5% 250 ML IV STA (10:12)
[2023-10-29] MEDS ORDERED: DINOPROSTONE 10 MG INSERT PV ONE (10:27)
--- NOTE | 2023-10-29 10:32 | History & Physical Report ---
Date of Service October 29, 2023 Assessment & Plan (1) Gestational proteinuria: Plan: Induction of labor cervidil for cervical ripening Admission and Anticipated Discharge Date Admission Date: October 29, 2023 History of Present Illness Chief Complaint: induction of labor Primary Care Provider: JUAQUIN PCP 26 F P0000 at 38 weeks seen in office yesterday and set up for IOL for gestational hypertension. GBS is positive. Allergies Allergy/AdvReac Type Severity Reaction Status Date / Time morphine Allergy Hives Verified 10/24/23 16:13 Home Medications Medication Instructions Recorded Confirmed Type aspirin 81 mg capsule 81 mg PO DAILY 10/24/23 10/24/23 History famotidine 20 mg tablet (Pepcid) 20 mg PO DAILY 10/24/23 10/24/23 History vit no.95-ferrous 1 tab PO DAILY 10/24/23 10/24/23 History fumarate 28 mg-folic acid 800 mcg tablet () Patient History Medical History GERD (gastroesophageal reflux disease) Surgical History History of appendectomy Family History Grandmother (Paternal) Diabetes Lung cancer Grandmother (Maternal) Glaucoma Hypertension Mother Hypertension Grandfather (Maternal) Hypertension Grandmother (Paternal) Hypertension Aunt Breast cancer Grandfather (Paternal) Kidney malignancy Social History Smoking Status: Never smoker Hx Alcohol Use: No Hx Substance Use: No Preferred Language: Syrian Communication Ability: Effective Director Electrical Engineering Required: No Beliefs That Will Affect Care: None marital status: Single Current Living Situation: Significant Other Current Living Situation Comment: Chris Other Information That Helps Us Care for You: No Feels Safe at Home: Yes Safety Concerns: Feels Safe At This Time 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 Review of Systems All systems reviewed & are unremarkable except as noted in HPI & below Physical Exam Constitutional: WD/WN, vitals as above Eyes: PERRL, conjunctivae normal, anicteric sclerae Respiratory: normal respiratory effort, lungs clear to auscultation Cardiovascular: RRR, no murmur, no edema Gastrointestinal (Abdomen): Inspection/Auscultation: abdomen normal to inspection Musculoskeletal: Extremities: extremities normal to inspection Skin: no rashes, warm and dry Neurologic: patellar DTR's 2+ bilat, sensation intact Psychiatric: A+Ox3, euthymic affect Genitourinary: no vaginal lesions, no adnexal mass Manual OB Exam: + cervical dilation fingertip, + cervical effacement 50% and + station high OB Exam Monitor Tracing: + external FHT monitor used, + external uterine monitor used, + category I and + normal FHT variability EFW 8 lbs cervix posterior/firm Results & Data Vital Signs (Past 12 Hours) Vital Signs Temp Pulse Resp BP 10/29/23 07:41 36.6 C 20 10/29/23 07:37 100 H 130/83 Laboratory Results 10/29/23 08:12 Blood Type A Positive Antibody Screen NEGATIVE Monitoring External Monitor Cat 1
[2023-10-29 11:11] LABS: Total Protein Urine Random 12.4 mg/dl (0-11.9)
[2023-10-29 11:16] LABS: Creatinine Urine Random 77.7 mg/dl; Protein Creatinine Ratio Urine 0.2 (0-0.2)
--- NOTE | 2023-10-29 11:16 | Labor Progress Brief Note ---
Date of Service October 29, 2023 Assessment & Plan Admission and Anticipated Discharge Date Admission Date: October 29, 2023 Physical Exam Genitourinary: OB Exam Monitor Tracing: + external FHT monitor used, + external uterine monitor used, + category I and + normal FHT variability Cervidil 10 mg placed vaginally Results & Data Vital Signs (Past 12 Hours) Vital Signs Temp Pulse Resp BP 10/29/23 10:57 99 H 10/29/23 10:57 116/73 10/29/23 10:47 96 H 10/29/23 10:47 118/68 10/29/23 07:41 36.6 C 20 10/29/23 07:37 100 H 130/83
[2023-10-29 11:35] LABS: Albumin Level 3.3 gm/dl (3.4-5.0); Anion Gap 8 (3-11); Bilirubin,Total 0.2 mg/dl (0.2-1.0); Calcium 9.4 mg/dl (8.6-10.3); Carbon Dioxide 22 mmol/L (21-32); Chloride 106 mmol/L (98-107); Potassium 3.8 mmol/L (3.5-5.1); Sodium 136 mmol/L (136-145)
[2023-10-29 11:41] LABS: Alanine Aminotransferase 8 U/L (7-52); Alkaline Phosphatase 107 U/L (34-104); Aspartate Aminotransferase 13 U/L (13-39); BUN Creatinine Ratio 23.3 (10-20); Blood Urea Nitrogen 10 mg/dl (6-23); Creatinine Clr Calc Pharmacy 259.9 ml/min; Est GFR (African American) > 150.0 ml/min; Est GFR (Non-African American) 140.4 ml/min; Globulin 3.4 gm/dl (2.5-4.0); Glucose 92 mg/dl (70-99(Fasting)); Total Protein 6.7 gm/dl (6.0-8.3)
[2023-10-29 12:15] LABS: Hematocrit (blood only) 36.7 % (37.0-47.0); Hemoglobin 11.7 g/dl (12.0-16.0); Mean Corpuscular Hemoglobin 26.7 pg (25.0-34.0); Mean Corpuscular Hgb Conc 31.9 g/dL (32.0-36.0); Mean Corpuscular Volume 83.6 fL (80.0-100.0); Mean Platelet Volume 10.8 fL (9.4-12.4); Platelet Count 328 K/uL (130-400); RDW Coefficient of Variation 14.2 % (11.5-14.5); RDW Standard Deviation 42.7 fL (36.4-46.3); Red Blood Count 4.39 M/uL (4.20-5.40); White Blood Count 13.15 K/ul (4.8-10.8)
[2023-10-30] MEDS ORDERED: miSOPROStoL 50 MCG TAB PO ONE ×2 (00:40→05:18)
--- NOTE | 2023-10-30 10:20 | Obstetrical Progress Note ---
Date of Service October 30, 2023 Assessment & Plan (1) Gestational proteinuria: Plan: Pt doing well FHR; CAT1 Ctx; Minimal VE; /-3 Pickens bulb placed with 35cc saline without difficulty starting piton augmentation Admission and Anticipated Discharge Date Admission Date: October 29, 2023 Results & Data Vital Signs (Past 12 Hours) Vital Signs Temp Pulse Resp BP 10/30/23 07:19 82 116/71 10/30/23 07:18 20 10/30/23 07:18 36.9 C 20 10/30/23 03:31 18 10/30/23 03:31 36.5 C 88 18 118/73 10/29/23 23:07 18 10/29/23 23:07 36.5 C 18 10/29/23 23:07 89 10/29/23 23:07 110/65 (1) Gestational proteinuria Trimester: third trimester Qualified Code(s): O12.13 - Gestational proteinuria, third trimester
[2023-10-30] MEDS ORDERED: OXYTOCIN 30 UNITS/NSS 30 UNITS/500 ML BAG IV PRN (10:27)
[2023-10-30] MEDS: LACTATED RINGER'S 1,000 ML IV PRN ×2 (11:00→18:32)
[2023-10-30] MEDS: BUTORPHANOL TARTRATE 1 MG/ML VIAL IV PRN ×2 (11:26→17:01)
[2023-10-30] MEDS ORDERED: ceFAZolin 2000MG 2,000 MG/15 ML SYR IV STA (11:39)
[2023-10-30] MEDS: PENICILLIN GK 3 MU in DEXTROSE 5% 100 ML IV PRN ×3 (15:04→22:39)
[2023-10-30] MEDS ORDERED: fentANYL 2 MCG/ML BUPIVacaine 0.125%-NSS 100ML BAG ONE (18:09)
[2023-10-30] MEDS ORDERED: fentaNYL citrate PF 100 MCG/2 ML VIAL ONE (18:09)
[2023-10-30] MEDS ORDERED: SODIUM CHLORIDE 0.9% PF INJ 10 ML VIAL ONE (18:09)
[2023-10-30] MEDS ORDERED: BUPIVACAINE 0.25% PF 30 ML VIAL ONE (18:09)
[2023-10-30] MEDS ORDERED: LIDOCAINE 2%/EPINEPHRINE 1:200,000 20 ML PF ONE (18:09)
[2023-10-30] MEDS ORDERED: ePHEDrine sulfate 50 MG/ML AMP ONE (18:09)
--- NOTE | 2023-10-30 18:23 | Anesthesiology Consultation ---
Date of Service October 30, 2023 Assessment & Plan Chart Review Chart Review: Patient NOT seen in Pre Admission Testing and Acceptable Risk for Labor Epidural Consults Requested none ASA ASA2 Proposed Anesthesia Anesthesia Type: Labor Epidural Risk / Benefits Reviewed With: PT / POA / Parent / Guardian, Accepts Plan and Informed Consent Obtained History Height/Weight Height: 5 ft 7 in Weight: 115.212 kg Allergies Allergy/AdvReac Type Severity Reaction Status Date / Time morphine Allergy Hives Verified 10/29/23 11:57 Medications Home Medications Medication Instructions Recorded Confirmed Last Taken aspirin 81 mg capsule 81 mg PO DAILY 10/24/23 10/29/23 10/29/23 07:00 famotidine 20 mg tablet (Pepcid) 20 mg PO DAILY 10/24/23 10/29/23 10/29/23 07:00 vit no.95-ferrous 1 tab PO DAILY 10/24/23 10/29/23 10/29/23 07:00 fumarate 28 mg-folic acid 800 mcg tablet () Active Medications Generic Name Dose Route Start Last Admin Trade Name Harrisq PRN Reason Stop Dose Admin Butorphanol Tartrate 1 mg 10/30/23 11:08 10/30/23 17:01 Butorphanol Tartrate 1 Mg/Ml Vial IV 11/29/23 11:07 1 mg Q4 PRN Administration Pain Lactated Ringer's 1,000 mls @ 125 mls/hr 10/29/23 10:07 10/30/23 18:32 Lr IV 10/31/23 10:06 999 mls/hr .Q8H PRN Administration L&D Protocol Protocol Penicillin G Potassium 3 mu/ 106 mls @ 100 mls/hr 10/29/23 13:07 10/30/23 18:49 Dextrose IV 11/08/23 13:06 100 mls/hr Q4H PRN Administration GBS(+) Until Delivery Oxytocin 30 units in 500 mls @ 14 mls/hr 10/30/23 10:27 10/30/23 16:55 Pitocin 30 Units/Nss IV 11/01/23 10:26 0.84 units/hr .Q24H PRN 14 mls/hr Labor Induction/Augmentation Titration Protocol 0.84 UNITS/HR NPO Date Last Intake of Fluids: 10/30/23 Time Last Intake of Fluids: 18:00 Date Last Intake of Solids: 10/30/23 Time Last Intake of Solids: 08:30 Past Medical History Medical History GERD (gastroesophageal reflux disease) Exercise / Class Metabolic Activity II 4-5 Yardwork/Stairs/Walk up hill Past Family History Family History Grandmother (Paternal) Diabetes Lung cancer Grandmother (Maternal) Glaucoma Hypertension Mother Hypertension Grandfather (Maternal) Hypertension Grandmother (Paternal) Hypertension Aunt Breast cancer Grandfather (Paternal) Kidney malignancy Past Surgical History Surgical History History of appendectomy Past Anesthesia History No Hx of Anesthesia Complications and No Family Hx of Anesthesia Complications History of PONV No Hx of PONV and No Hx of Motion Sickness Social History Smoking Status: Never smoker Hx Alcohol Use: No Hx Substance Use: No Review of Systems ROS Unobtainable: All systems reviewed & are unremarkable except as noted in HPI & below Physical Exam Vital Signs Last Vital Signs Temp 36.8 C 10/30/23 17:00 Pulse 82 10/30/23 17:00 Resp 20 10/30/23 17:00 BP 118/78 10/30/23 17:00 ENMT Mouth: no TMJ abnormality Thyromental Distance: > or= 3.5 Finger Breadths Mallampati Class: III Neck normal visual inspection and trachea midline; neck extension not limited Respiratory normal respiratory effort Auscultation: lungs clear to auscultation bilaterally Cardiovascular Rate/Rhythm: regular rate and regular rhythm Heart Sounds: no murmur Musculoskeletal Spine: normal cervical ROM Extremities: full ROM of extremities Neurologic moves all extremities Psychiatric Orientation: alert and oriented x 3 Testing Laboratory Results 10/29/23 08:15 10/29/23 10:07 Blood Type A Positive 10/29/23 08:12 Antibody Screen NEGATIVE 10/29/23 08:12
[2023-10-30] MEDS ORDERED: ceFAZolin 1000MG 1,000 MG/7.5 ML SYR IV PRN (18:39)
[2023-10-30] MEDS ORDERED: ROPIVACAINE 0.5% PF 5 MG/ML 20 ML VIAL EPI PRN (18:52)
[2023-10-30] MEDS ORDERED: NALBUPHINE HCL 5 MG in SYRINGE 0 ML IV PRN (18:52)
[2023-10-30] MEDS ORDERED: BUPIVACAINE 0.25% PF 30 ML VIAL EPI STA (18:52)
[2023-10-30] MEDS ORDERED: fentaNYL citrate PF 100 MCG/2 ML VIAL EPI PRN (18:52)
[2023-10-30] MEDS ORDERED: NALOXONE HCL 1 MG in SODIUM CHLORIDE 0.9% 1,000 ML IV PRN (18:52)
[2023-10-30] MEDS ORDERED: NALOXONE HCL 0.4 MG/1 ML VIAL/CARP IV PRN (18:52)
[2023-10-30] MEDS ORDERED: fentaNYL citrate PF 100 MCG/2 ML VIAL EPI STA (18:52)
[2023-10-30] MEDS ORDERED: LIDOCAINE 2% MPF LOCAL 5 ML VIAL EPI PRN (18:52)
[2023-10-30] MEDS ORDERED: BUPIVACAINE 0.25% PF 30 ML VIAL EPI PRN (18:52)
[2023-10-30] MEDS ORDERED: ePHEDrine sulfate 50 MG/ML AMP IV PRN (18:52)
[2023-10-30] MEDS ORDERED: diphenhydrAMINE 50 MG/ML VIAL IV PRN (18:52)
[2023-10-30] MEDS ORDERED: LIDOCAINE 2%/EPINEPHRINE 1:200,000 20 ML PF EPI STA (18:52)
[2023-10-30] MEDS ORDERED: SODIUM CHLORIDE 0.9% PF INJ 10 ML VIAL EPI PRN (18:52)
[2023-10-30] MEDS ORDERED: SODIUM CHLORIDE 0.9% PF INJ 10 ML VIAL EPI STA (18:52)
--- NOTE | 2023-10-30 21:23 | Obstetrical Progress Note ---
Date of Service October 30, 2023 Assessment & Plan (1) Gestational proteinuria: Plan: Pt doing well FHR; CAT1 Ctx; 1-3mins Pitocin; 14Mu AROM with amnio hook- Clear fluid Admission and Anticipated Discharge Date Admission Date: October 29, 2023 Results & Data Vital Signs (Past 12 Hours) Vital Signs Temp Pulse Resp BP Pulse Ox 10/30/23 21:10 95 H 123/72 10/30/23 21:09 99 H 100 10/30/23 20:55 96 H 116/72 10/30/23 20:54 89 98 10/30/23 20:39 98 10/30/23 20:39 88 10/30/23 20:39 87 103/67 10/30/23 20:25 97 H 107/69 10/30/23 20:24 96 H 100 10/30/23 20:09 98 10/30/23 20:09 99 H 10/30/23 20:09 94 H 100/66 10/30/23 19:54 91 H 101/67 98 10/30/23 19:39 92 H 101/67 97 10/30/23 19:25 86 102/66 10/30/23 19:24 89 98 10/30/23 19:12 90 89 L 10/30/23 19:09 95 H 115/69 10/30/23 19:06 104 H 99 10/30/23 19:05 102 H 112/69 10/30/23 19:01 20 10/30/23 19:01 36.4 C L 20 10/30/23 19:01 98 10/30/23 19:01 97 H 10/30/23 19:01 98 H 115/71 10/30/23 18:56 95 H 99 10/30/23 18:53 95 H 109/65 10/30/23 18:51 92 H 110/67 99 10/30/23 18:49 93 H 112/69 10/30/23 18:47 93 H 116/68 10/30/23 18:46 104 H 98 10/30/23 18:45 94 H 116/67 10/30/23 18:43 100 H 118/65 10/30/23 18:41 96 H 99 10/30/23 18:40 90 123/71 10/30/23 18:36 96 H 98 10/30/23 18:31 104 H 96 10/30/23 18:29 101 H 87 L 10/30/23 18:26 99 10/30/23 18:26 109 H 10/30/23 18:26 114 H 137/91 10/30/23 17:00 36.8 C 20 10/30/23 17:00 82 118/78 10/30/23 16:02 90 110/74 10/30/23 15:11 82 101/57 L 10/30/23 14:11 36.9 C 90 20 108/72 10/30/23 12:59 86 119/72 10/30/23 12:03 77 118/76 10/30/23 11:02 87 118/79 (1) Gestational proteinuria Trimester: third trimester Qualified Code(s): O12.13 - Gestational proteinuria, third trimester
[2023-10-31] MEDS: PENICILLIN GK 3 MU in DEXTROSE 5% 100 ML IV PRN ×3 (02:40→10:44)
[2023-10-31] MEDS: LACTATED RINGER'S 1,000 ML IV PRN ×2 (02:42→09:07)
[2023-10-31] MEDS: fentANYL 2 MCG/ML BUPIVacaine 0.125%-NSS 100ML BAG EPI PRN ×2 (02:52→08:57)
[2023-10-31] MEDS ORDERED: CITRIC ACID/SODIUM CITRATE 15 ML UDC PO SCH (06:00)
[2023-10-31] MEDS ORDERED: AZITHROMYCIN 500 MG in DEXTROSE 5% 250 ML IV SCH (06:00)
[2023-10-31] MEDS ORDERED: ceFAZolin 2000MG 2,000 MG/15 ML SYR IV SCH (06:00)
[2023-10-31 06:54] LABS: Basophils # (auto) 0.05 K/uL (0.00-0.20); Basophils % (auto) 0.3 %; Eosinophils # (auto) 0.07 K/uL (0.00-0.50); Eosinophils % (auto) 0.5 %; Hematocrit (blood only) 35.5 % (37.0-47.0); Hemoglobin 11.4 g/dl (12.0-16.0); Immature Granulocytes # (auto) 0.11 K/uL (0.01-0.20); Immature Granulocytes % (auto) 0.8 %; Lymphocytes # (auto) 1.84 K/uL (1.20-3.40); Lymphocytes % (auto) 12.6 %; Mean Corpuscular Hemoglobin 26.6 pg (25.0-34.0); Mean Corpuscular Hgb Conc 32.1 g/dL (32.0-36.0); Mean Corpuscular Volume 82.9 fL (80.0-100.0); Mean Platelet Volume 10.3 fL (9.4-12.4); Monocytes # (auto) 0.76 K/uL (0.11-0.59); Monocytes % (auto) 5.2 %; Neutrophils # (auto) 11.74 K/uL (1.40-6.50); Neutrophils % (auto) 80.6 %; Platelet Count 320 K/uL (130-400); RDW Coefficient of Variation 14.3 % (11.5-14.5); RDW Standard Deviation 42.4 fL (36.4-46.3); Red Blood Count 4.28 M/uL (4.20-5.40); White Blood Count 14.57 K/ul (4.8-10.8)
[2023-10-31 07:13] LABS: Alanine Aminotransferase 6 U/L (7-52); Alkaline Phosphatase 95 U/L (34-104); Anion Gap 8 (3-11); Aspartate Aminotransferase 10 U/L (13-39); Bilirubin,Total 0.4 mg/dl (0.2-1.0); Blood Urea Nitrogen 8 mg/dl (6-23); Calcium 8.6 mg/dl (8.6-10.3); Carbon Dioxide 22 mmol/L (21-32); Chloride 107 mmol/L (98-107); Creatinine Clr Calc Pharmacy 237.8 ml/min; Est GFR (African American) > 150.0 ml/min; Est GFR (Non-African American) 136.3 ml/min; Globulin 3.1 gm/dl (2.5-4.0); Glucose 97 mg/dl (70-99(Fasting)); Potassium 3.5 mmol/L (3.5-5.1); Sodium 137 mmol/L (136-145); Total Protein 6.1 gm/dl (6.0-8.3)
--- NOTE | 2023-10-31 07:42 | Obstetrical Progress Note ---
Date of Service October 31, 2023 Assessment & Plan (1) Gestational proteinuria: Plan: Induction for gest proteinuria Pt doing well FHR; CAT1 Pit; 10 VE; 4/50/-2 continue with Pitocin Admission and Anticipated Discharge Date Admission Date: October 29, 2023 Results & Data Vital Signs (Past 12 Hours) Vital Signs Temp Pulse Resp BP Pulse Ox 10/31/23 07:25 91 H 99 10/31/23 07:24 88 116/81 10/31/23 07:11 86 108/72 10/31/23 07:10 91 H 98 10/31/23 06:55 99 10/31/23 06:55 100 H 10/31/23 06:55 95 H 113/72 10/31/23 06:40 91 H 96 10/31/23 06:39 94 H 105/67 10/31/23 06:25 95 10/31/23 06:25 88 10/31/23 06:25 81 103/66 10/31/23 06:24 83 94 10/31/23 06:15 87 94 10/31/23 06:10 99 H 94 10/31/23 06:09 86 101/64 10/31/23 06:07 95 H 94 10/31/23 06:02 92 H 94 10/31/23 05:56 93 H 94 10/31/23 05:55 92 H 104/64 94 10/31/23 05:40 93 H 95 10/31/23 05:39 86 102/62 10/31/23 05:37 93 H 94 10/31/23 05:25 113 H 97 10/31/23 05:24 103 H 98/54 L 10/31/23 05:15 89 94 10/31/23 05:10 94 10/31/23 05:10 82 10/31/23 05:10 91 H 94 10/31/23 05:09 75 96/54 L 10/31/23 05:02 81 94 10/31/23 05:00 16 10/31/23 05:00 36.6 C 16 10/31/23 04:55 88 95/51 L 94 10/31/23 04:53 101 H 94 10/31/23 04:41 89 94 10/31/23 04:40 90 95 10/31/23 04:39 83 93/55 L 10/31/23 04:25 84 93/52 L 94 10/31/23 04:10 83 93 10/31/23 04:09 82 93/54 L 10/31/23 03:55 87 95/55 L 94 10/31/23 03:45 90 94 10/31/23 03:40 85 93 10/31/23 03:39 83 88/51 L 10/31/23 03:25 83 94 10/31/23 03:24 81 90/52 L 10/31/23 03:14 86 94 10/31/23 03:10 87 95 10/31/23 03:09 82 93/54 L 10/31/23 03:00 18 10/31/23 03:00 36.7 C 18 10/31/23 02:55 96 10/31/23 02:55 95 H 10/31/23 02:55 93 H 102/56 L 10/31/23 02:40 99 H 95 10/31/23 02:39 78 92/53 L 10/31/23 02:37 82 94 10/31/23 02:28 77 94 10/31/23 02:25 85 95 10/31/23 02:24 83 90/51 L 10/31/23 02:21 79 94 10/31/23 02:16 80 94 10/31/23 02:10 85 90/53 L 95 10/31/23 02:09 79 94 10/31/23 01:55 79 94 10/31/23 01:54 80 84/50 L 10/31/23 01:40 76 94 10/31/23 01:39 83 88/52 L 94 10/31/23 01:25 83 93 10/31/23 01:24 88 89/53 L 10/31/23 01:21 104 H 94 10/31/23 01:10 79 93 10/31/23 01:09 76 84/48 L 10/31/23 01:00 18 10/31/23 01:00 36.6 C 18 10/31/23 00:55 82 93 10/31/23 00:54 77 82/45 L 10/31/23 00:48 81 94 10/31/23 00:40 71 94 10/31/23 00:39 83 83/46 L 10/31/23 00:38 85 94 10/31/23 00:27 107 H 94 10/31/23 00:25 91 H 95 10/31/23 00:24 89 101/55 L 10/31/23 00:21 89 94 10/31/23 00:15 89 94 10/31/23 00:10 96 10/31/23 00:10 103 H 10/31/23 00:10 99 H 90 10/31/23 00:09 96 H 98/59 L 10/30/23 23:59 86 94 10/30/23 23:55 92 H 95 10/30/23 23:54 84 93/51 L 10/30/23 23:53 85 94 10/30/23 23:48 88 94 10/30/23 23:40 94 10/30/23 23:40 94 H 10/30/23 23:40 93 H 94 10/30/23 23:39 89 95/55 L 10/30/23 23:26 90 94 10/30/23 23:25 92 H 94 10/30/23 23:24 82 95/56 L 10/30/23 23:20 94 H 94 10/30/23 23:14 88 94 10/30/23 23:10 90 94 10/30/23 23:09 93 H 102/62 10/30/23 23:00 18 10/30/23 23:00 36.5 C 18 10/30/23 22:55 95 H 96 10/30/23 22:54 97 H 107/63 10/30/23 22:40 94 H 97 10/30/23 22:39 96 H 95/50 L 10/30/23 22:25 91 H 111/61 94 10/30/23 22:10 94 H 94 10/30/23 22:09 91 H 109/63 94 10/30/23 22:03 87 94 10/30/23 21:57 93 H 94 10/30/23 21:55 95 H 94 10/30/23 21:54 98 H 106/59 L 10/30/23 21:52 89 94 10/30/23 21:40 94 H 111/62 10/30/23 21:39 93 H 96 10/30/23 21:25 97 H 117/73 10/30/23 21:24 87 97 10/30/23 21:10 95 H 123/72 10/30/23 21:09 99 H 100 10/30/23 20:55 96 H 116/72 10/30/23 20:54 89 98 10/30/23 20:39 98 10/30/23 20:39 88 10/30/23 20:39 87 103/67 10/30/23 20:25 97 H 107/69 10/30/23 20:24 96 H 100 10/30/23 20:09 98 10/30/23 20:09 99 H 10/30/23 20:09 94 H 100/66 10/30/23 19:54 91 H 101/67 98 (1) Gestational proteinuria Trimester: third trimester Qualified Code(s): O12.13 - Gestational proteinuria, third trimester
--- NOTE | 2023-10-31 10:10 | Labor Progress Brief Note ---
Date of Service October 31, 2023 Assessment & Plan Admission and Anticipated Discharge Date Admission Date: October 29, 2023 Physical Exam Genitourinary: Manual OB Exam: + cervical dilation 4 cm, + cervical effacement 80% and + station -2 OB Exam Monitor Tracing: + external FHT monitor used, + external uterine monitor used, + category I and + normal FHT variability Results & Data Vital Signs (Past 12 Hours) Vital Signs Temp Pulse Resp BP Pulse Ox 10/31/23 10:02 84 93 10/31/23 09:57 82 91 10/31/23 09:55 84 96 10/31/23 09:50 84 93 10/31/23 09:44 87 88 L 10/31/23 09:41 84 103/65 10/31/23 09:40 84 97 10/31/23 09:36 93 H 93 10/31/23 09:25 96 H 97 10/31/23 09:11 95 H 102/62 10/31/23 09:10 94 H 93 10/31/23 08:55 84 96 10/31/23 08:40 95 H 97 10/31/23 08:39 94 H 114/71 10/31/23 08:25 97 H 96 10/31/23 08:24 96 H 104/56 L 10/31/23 08:13 89 94 10/31/23 08:10 90 94 10/31/23 08:09 82 111/67 10/31/23 08:08 87 94 10/31/23 08:01 84 20 94 10/31/23 07:56 85 94 10/31/23 07:55 80 95 10/31/23 07:54 89 110/71 10/31/23 07:41 93 H 109/72 10/31/23 07:40 96 H 98 10/31/23 07:31 20 10/31/23 07:31 36.9 C 20 10/31/23 07:25 91 H 99 10/31/23 07:24 88 116/81 10/31/23 07:11 86 108/72 10/31/23 07:10 91 H 98 10/31/23 06:55 99 10/31/23 06:55 100 H 10/31/23 06:55 95 H 113/72 10/31/23 06:40 91 H 96 10/31/23 06:39 94 H 105/67 10/31/23 06:25 95 10/31/23 06:25 88 10/31/23 06:25 81 103/66 10/31/23 06:24 83 94 10/31/23 06:15 87 94 10/31/23 06:10 99 H 94 10/31/23 06:09 86 101/64 10/31/23 06:07 95 H 94 10/31/23 06:02 92 H 94 10/31/23 05:56 93 H 94 10/31/23 05:55 92 H 104/64 94 10/31/23 05:40 93 H 95 10/31/23 05:39 86 102/62 10/31/23 05:37 93 H 94 10/31/23 05:25 113 H 97 10/31/23 05:24 103 H 98/54 L 10/31/23 05:15 89 94 10/31/23 05:10 94 10/31/23 05:10 82 10/31/23 05:10 91 H 94 10/31/23 05:09 75 96/54 L 10/31/23 05:02 81 94 10/31/23 05:00 16 10/31/23 05:00 36.6 C 16 10/31/23 04:55 88 95/51 L 94 10/31/23 04:53 101 H 94 10/31/23 04:41 89 94 10/31/23 04:40 90 95 10/31/23 04:39 83 93/55 L 10/31/23 04:25 84 93/52 L 94 10/31/23 04:10 83 93 10/31/23 04:09 82 93/54 L 10/31/23 03:55 87 95/55 L 94 10/31/23 03:45 90 94 10/31/23 03:40 85 93 10/31/23 03:39 83 88/51 L 10/31/23 03:25 83 94 10/31/23 03:24 81 90/52 L 10/31/23 03:14 86 94 10/31/23 03:10 87 95 10/31/23 03:09 82 93/54 L 10/31/23 03:00 18 10/31/23 03:00 36.7 C 18 10/31/23 02:55 96 10/31/23 02:55 95 H 10/31/23 02:55 93 H 102/56 L 10/31/23 02:40 99 H 95 10/31/23 02:39 78 92/53 L 10/31/23 02:37 82 94 10/31/23 02:28 77 94 10/31/23 02:25 85 95 10/31/23 02:24 83 90/51 L 10/31/23 02:21 79 94 10/31/23 02:16 80 94 10/31/23 02:10 85 90/53 L 95 10/31/23 02:09 79 94 10/31/23 01:55 79 94 10/31/23 01:54 80 84/50 L 10/31/23 01:40 76 94 10/31/23 01:39 83 88/52 L 94 10/31/23 01:25 83 93 10/31/23 01:24 88 89/53 L 10/31/23 01:21 104 H 94 10/31/23 01:10 79 93 10/31/23 01:09 76 84/48 L 10/31/23 01:00 18 10/31/23 01:00 36.6 C 18 10/31/23 00:55 82 93 10/31/23 00:54 77 82/45 L 10/31/23 00:48 81 94 10/31/23 00:40 71 94 10/31/23 00:39 83 83/46 L 10/31/23 00:38 85 94 10/31/23 00:27 107 H 94 10/31/23 00:25 91 H 95 10/31/23 00:24 89 101/55 L 10/31/23 00:21 89 94 10/31/23 00:15 89 94 10/31/23 00:10 96 10/31/23 00:10 103 H 10/31/23 00:10 99 H 90 10/31/23 00:09 96 H 98/59 L 10/30/23 23:59 86 94 10/30/23 23:55 92 H 95 10/30/23 23:54 84 93/51 L 10/30/23 23:53 85 94 10/30/23 23:48 88 94 10/30/23 23:40 94 10/30/23 23:40 94 H 10/30/23 23:40 93 H 94 10/30/23 23:39 89 95/55 L 10/30/23 23:26 90 94 10/30/23 23:25 92 H 94 10/30/23 23:24 82 95/56 L 10/30/23 23:20 94 H 94 10/30/23 23:14 88 94 10/30/23 23:10 90 94 10/30/23 23:09 93 H 102/62 10/30/23 23:00 18 10/30/23 23:00 36.5 C 18 10/30/23 22:55 95 H 96 10/30/23 22:54 97 H 107/63 10/30/23 22:40 94 H 97 10/30/23 22:39 96 H 95/50 L 10/30/23 22:25 91 H 111/61 94
[2023-10-31] MEDS ORDERED: LACTATED RINGER'S 1,000 ML IV SCH ×2 (10:45→14:40)
--- NOTE | 2023-10-31 11:22 | History & Physical Bridge Note ---
Date of Service October 31, 2023 History & Physical Bridge Note I have examined the patient, reviewed the History & Physical and in the interval since the performance of the History & Physical I have noted the following changes of clinical significance: no changes noted
--- NOTE | 2023-10-31 11:27 | Labor Progress Brief Note ---
Date of Service October 31, 2023 Assessment & Plan Admission and Anticipated Discharge Date Admission Date: October 29, 2023 Physical Exam Genitourinary: Manual OB Exam: + cervical dilation OB Exam Monitor Tracing: + external FHT monitor used, + external uterine monitor used, + category I and + normal FHT variability I was notified by the nurse that the patient no longer wants to go through labor and is requesting a . The consents were obtained and signed by patient after I reviewed with her the procedure and the risks and benefits of surgery vs. continuing to labor. The risks of was explained to her and her spouse and included risk of bleeding, injury to bowel, bladder, ureter uterus, ovary and other intra-abdominal structures, blood clot in legs or lungs, blood transfusion, infection and need for further surgery as well. All questions were answered. Results & Data Vital Signs (Past 12 Hours) Vital Signs Temp Pulse Resp BP Pulse Ox 10/31/23 11:10 88 L 10/31/23 11:10 107 H 10/31/23 11:10 110 H 109/70 87 L 10/31/23 11:01 20 10/31/23 11:01 20 10/31/23 10:55 85 94 10/31/23 10:43 95 H 93 10/31/23 10:40 96 10/31/23 10:40 111 H 10/31/23 10:40 113 H 110/77 10/31/23 10:38 117 H 93 10/31/23 10:32 137 H 92 10/31/23 10:31 20 10/31/23 10:31 20 10/31/23 10:25 87 98 10/31/23 10:24 85 92 10/31/23 10:18 91 H 94 10/31/23 10:11 99 H 117/70 90 10/31/23 10:10 96 H 96 10/31/23 10:02 84 93 10/31/23 10:01 20 10/31/23 10:01 36.8 C 20 10/31/23 09:57 82 91 10/31/23 09:55 84 96 10/31/23 09:50 84 93 10/31/23 09:44 87 88 L 10/31/23 09:41 84 103/65 10/31/23 09:40 84 97 10/31/23 09:36 93 H 93 10/31/23 09:31 20 10/31/23 09:31 20 10/31/23 09:25 96 H 97 10/31/23 09:11 95 H 102/62 10/31/23 09:10 94 H 93 10/31/23 09:01 20 10/31/23 09:01 36.7 C 20 10/31/23 08:55 84 96 10/31/23 08:40 95 H 97 10/31/23 08:39 94 H 114/71 10/31/23 08:31 20 10/31/23 08:31 20 10/31/23 08:25 97 H 96 10/31/23 08:24 96 H 104/56 L 10/31/23 08:13 89 94 10/31/23 08:10 90 94 10/31/23 08:09 82 111/67 10/31/23 08:08 87 94 10/31/23 08:01 84 20 94 10/31/23 07:56 85 94 10/31/23 07:55 80 95 10/31/23 07:54 89 110/71 10/31/23 07:41 93 H 109/72 10/31/23 07:40 96 H 98 10/31/23 07:31 20 10/31/23 07:31 36.9 C 20 10/31/23 07:25 91 H 99 10/31/23 07:24 88 116/81 10/31/23 07:11 86 108/72 10/31/23 07:10 91 H 98 10/31/23 06:55 99 10/31/23 06:55 100 H 10/31/23 06:55 95 H 113/72 10/31/23 06:40 91 H 96 10/31/23 06:39 94 H 105/67 10/31/23 06:25 95 10/31/23 06:25 88 10/31/23 06:25 81 103/66 10/31/23 06:24 83 94 10/31/23 06:15 87 94 10/31/23 06:10 99 H 94 10/31/23 06:09 86 101/64 10/31/23 06:07 95 H 94 10/31/23 06:02 92 H 94 10/31/23 05:56 93 H 94 10/31/23 05:55 92 H 104/64 94 10/31/23 05:40 93 H 95 10/31/23 05:39 86 102/62 10/31/23 05:37 93 H 94 10/31/23 05:25 113 H 97 10/31/23 05:24 103 H 98/54 L 10/31/23 05:15 89 94 10/31/23 05:10 94 10/31/23 05:10 82 10/31/23 05:10 91 H 94 10/31/23 05:09 75 96/54 L 10/31/23 05:02 81 94 10/31/23 05:00 16 10/31/23 05:00 36.6 C 16 10/31/23 04:55 88 95/51 L 94 10/31/23 04:53 101 H 94 10/31/23 04:41 89 94 10/31/23 04:40 90 95 10/31/23 04:39 83 93/55 L 10/31/23 04:25 84 93/52 L 94 10/31/23 04:10 83 93 10/31/23 04:09 82 93/54 L 10/31/23 03:55 87 95/55 L 94 10/31/23 03:45 90 94 10/31/23 03:40 85 93 10/31/23 03:39 83 88/51 L 10/31/23 03:25 83 94 10/31/23 03:24 81 90/52 L 10/31/23 03:14 86 94 10/31/23 03:10 87 95 10/31/23 03:09 82 93/54 L 10/31/23 03:00 18 10/31/23 03:00 36.7 C 18 10/31/23 02:55 96 10/31/23 02:55 95 H 10/31/23 02:55 93 H 102/56 L 10/31/23 02:40 99 H 95 10/31/23 02:39 78 92/53 L 10/31/23 02:37 82 94 10/31/23 02:28 77 94 10/31/23 02:25 85 95 10/31/23 02:24 83 90/51 L 10/31/23 02:21 79 94 10/31/23 02:16 80 94 10/31/23 02:10 85 90/53 L 95 10/31/23 02:09 79 94 10/31/23 01:55 79 94 10/31/23 01:54 80 84/50 L 10/31/23 01:40 76 94 10/31/23 01:39 83 88/52 L 94 10/31/23 01:25 83 93 10/31/23 01:24 88 89/53 L 10/31/23 01:21 104 H 94 10/31/23 01:10 79 93 10/31/23 01:09 76 84/48 L 10/31/23 01:00 18 10/31/23 01:00 36.6 C 18 10/31/23 00:55 82 93 10/31/23 00:54 77 82/45 L 10/31/23 00:48 81 94 10/31/23 00:40 71 94 10/31/23 00:39 83 83/46 L 10/31/23 00:38 85 94 10/31/23 00:27 107 H 94 10/31/23 00:25 91 H 95 10/31/23 00:24 89 101/55 L 10/31/23 00:21 89 94 10/31/23 00:15 89 94 10/31/23 00:10 96 10/31/23 00:10 103 H 10/31/23 00:10 99 H 90 10/31/23 00:09 96 H 98/59 L 10/30/23 23:59 86 94 10/30/23 23:55 92 H 95 10/30/23 23:54 84 93/51 L 10/30/23 23:53 85 94 10/30/23 23:48 88 94 10/30/23 23:40 94 10/30/23 23:40 94 H 10/30/23 23:40 93 H 94 10/30/23 23:39 89 95/55 L 10/30/23 23:26 90 94 10/30/23 23:25 92 H 94 10/30/23 23:24 82 95/56 L
[2023-10-31] MEDS ORDERED: PHENYLEPHRINE 100MCG/ML 10ML SYR IV ONE (13:17)
[2023-10-31] MEDS ORDERED: OXYTOCIN 10 UNITS/ML VIAL ONE (13:17)
[2023-10-31] MEDS ORDERED: ONDANSETRON INJ 2 MG/ML 2 ML VIAL ONE (13:17)
[2023-10-31] MEDS ORDERED: LIDOCAINE 2%/EPINEPHRINE 1:200,000 20 ML PF ONE (13:17)
[2023-10-31] MEDS ORDERED: MIDAZOLAM HCL 1 MG/ML 2ML VIAL ONE (13:19)
[2023-10-31] MEDS ORDERED: KETOROLAC 30 MG/ML VIAL ONE (13:44)
--- NOTE | 2023-10-31 14:19 | Anesthesia Procedure Note ---
Date of Service October 31, 2023 Anesthesia Post Epidural Note Vital Signs Vital Signs: Temp Pulse Resp BP Pulse Ox 36.7 C 89 18 104/59 L 95 10/31/23 12:01 10/31/23 14:12 10/31/23 12:31 10/31/23 14:08 10/31/23 14:12 Pain Intensity Bilateral Back: Pain Intensity: 2 Notes Mental Status: alert / awake / arousable and participated in evaluation Patient Amnestic to Procedure: No Nausea / Vomiting: adequately controlled Pain: adequately controlled Airway Patency, RR, SpO2: stable & adequate BP & HR: stable & adequate Hydration State: stable & adequate Neuraxial Anesthesia: was administered and sensory block is resolving Anesthetic Complications: no major complications apparent and Pt Satisfied with anesthetic care Epidural: Removed without complications and With tip intact
--- NOTE | 2023-10-31 14:19 | Anesthesiology Progress Note ---
Date of Service October 31, 2023 Anesthesia Post Procedure Vital Signs Vital Signs: Temp Pulse Resp BP Pulse Ox 10/31/23 14:17 90 98 10/31/23 14:12 89 95 10/31/23 14:08 88 10/31/23 14:08 86 104/59 L 94 10/31/23 14:07 93 H 94 10/31/23 12:40 95 10/31/23 12:40 104 H 10/31/23 12:40 98 H 108/68 79 L 10/31/23 12:32 102 H 84 L 10/31/23 12:31 18 10/31/23 12:31 18 10/31/23 12:25 102 H 98 10/31/23 12:10 97 10/31/23 12:10 90 10/31/23 12:10 92 H 110/70 10/31/23 12:01 20 10/31/23 12:01 36.7 C 20 10/31/23 11:55 91 H 98 10/31/23 11:41 86 110/67 10/31/23 11:40 88 100 10/31/23 11:31 20 10/31/23 11:31 20 10/31/23 11:25 93 H 99 10/31/23 11:10 88 L 10/31/23 11:10 107 H 10/31/23 11:10 110 H 109/70 87 L 10/31/23 11:01 20 10/31/23 11:01 20 10/31/23 10:55 85 94 10/31/23 10:43 95 H 93 10/31/23 10:40 96 10/31/23 10:40 111 H 10/31/23 10:40 113 H 110/77 10/31/23 10:38 117 H 93 10/31/23 10:32 137 H 92 10/31/23 10:31 20 10/31/23 10:31 20 10/31/23 10:25 87 98 10/31/23 10:24 85 92 10/31/23 10:18 91 H 94 10/31/23 10:11 99 H 117/70 90 10/31/23 10:10 96 H 96 10/31/23 10:02 84 93 10/31/23 10:01 20 10/31/23 10:01 36.8 C 20 10/31/23 09:57 82 91 10/31/23 09:55 84 96 10/31/23 09:50 84 93 10/31/23 09:44 87 88 L 10/31/23 09:41 84 103/65 10/31/23 09:40 84 97 10/31/23 09:36 93 H 93 10/31/23 09:31 20 10/31/23 09:31 20 10/31/23 09:25 96 H 97 10/31/23 09:11 95 H 102/62 10/31/23 09:10 94 H 93 10/31/23 09:01 20 10/31/23 09:01 36.7 C 20 10/31/23 08:55 84 96 10/31/23 08:40 95 H 97 10/31/23 08:39 94 H 114/71 10/31/23 08:31 20 10/31/23 08:31 20 10/31/23 08:25 97 H 96 10/31/23 08:24 96 H 104/56 L 10/31/23 08:13 89 94 10/31/23 08:10 90 94 10/31/23 08:09 82 111/67 10/31/23 08:08 87 94 10/31/23 08:01 84 20 94 10/31/23 07:56 85 94 10/31/23 07:55 80 95 10/31/23 07:54 89 110/71 10/31/23 07:41 93 H 109/72 10/31/23 07:40 96 H 98 10/31/23 07:31 20 10/31/23 07:31 36.9 C 20 10/31/23 07:25 91 H 99 10/31/23 07:24 88 116/81 10/31/23 07:11 86 108/72 10/31/23 07:10 91 H 98 10/31/23 06:55 99 10/31/23 06:55 100 H 10/31/23 06:55 95 H 113/72 10/31/23 06:40 91 H 96 10/31/23 06:39 94 H 105/67 10/31/23 06:25 95 10/31/23 06:25 88 10/31/23 06:25 81 103/66 10/31/23 06:24 83 94 10/31/23 06:15 87 94 10/31/23 06:10 99 H 94 10/31/23 06:09 86 101/64 10/31/23 06:07 95 H 94 10/31/23 06:02 92 H 94 10/31/23 05:56 93 H 94 10/31/23 05:55 92 H 104/64 94 10/31/23 05:40 93 H 95 10/31/23 05:39 86 102/62 10/31/23 05:37 93 H 94 10/31/23 05:25 113 H 97 10/31/23 05:24 103 H 98/54 L 10/31/23 05:15 89 94 10/31/23 05:10 94 10/31/23 05:10 82 10/31/23 05:10 91 H 94 10/31/23 05:09 75 96/54 L 10/31/23 05:02 81 94 10/31/23 05:00 16 10/31/23 05:00 36.6 C 16 10/31/23 04:55 88 95/51 L 94 10/31/23 04:53 101 H 94 10/31/23 04:41 89 94 10/31/23 04:40 90 95 10/31/23 04:39 83 93/55 L 10/31/23 04:25 84 93/52 L 94 10/31/23 04:10 83 93 10/31/23 04:09 82 93/54 L 10/31/23 03:55 87 95/55 L 94 10/31/23 03:45 90 94 10/31/23 03:40 85 93 10/31/23 03:39 83 88/51 L 10/31/23 03:25 83 94 10/31/23 03:24 81 90/52 L 10/31/23 03:14 86 94 10/31/23 03:10 87 95 10/31/23 03:09 82 93/54 L 10/31/23 03:00 18 10/31/23 03:00 36.7 C 18 10/31/23 02:55 96 10/31/23 02:55 95 H 10/31/23 02:55 93 H 102/56 L 10/31/23 02:40 99 H 95 10/31/23 02:39 78 92/53 L 10/31/23 02:37 82 94 10/31/23 02:28 77 94 10/31/23 02:25 85 95 10/31/23 02:24 83 90/51 L 10/31/23 02:21 79 94 10/31/23 02:16 80 94 10/31/23 02:10 85 90/53 L 95 10/31/23 02:09 79 94 10/31/23 01:55 79 94 10/31/23 01:54 80 84/50 L 10/31/23 01:40 76 94 10/31/23 01:39 83 88/52 L 94 10/31/23 01:25 83 93 10/31/23 01:24 88 89/53 L 10/31/23 01:21 104 H 94 10/31/23 01:10 79 93 10/31/23 01:09 76 84/48 L 10/31/23 01:00 18 10/31/23 01:00 36.6 C 18 10/31/23 00:55 82 93 10/31/23 00:54 77 82/45 L 10/31/23 00:48 81 94 10/31/23 00:40 71 94 10/31/23 00:39 83 83/46 L 10/31/23 00:38 85 94 10/31/23 00:27 107 H 94 10/31/23 00:25 91 H 95 10/31/23 00:24 89 101/55 L 10/31/23 00:21 89 94 10/31/23 00:15 89 94 10/31/23 00:10 96 10/31/23 00:10 103 H 10/31/23 00:10 99 H 90 10/31/23 00:09 96 H 98/59 L 10/30/23 23:59 86 94 10/30/23 23:55 92 H 95 10/30/23 23:54 84 93/51 L 10/30/23 23:53 85 94 10/30/23 23:48 88 94 10/30/23 23:40 94 10/30/23 23:40 94 H 10/30/23 23:40 93 H 94 10/30/23 23:39 89 95/55 L 10/30/23 23:26 90 94 10/30/23 23:25 92 H 94 01/04/24 23:24 82 95/56 L 01/04/24 23:20 94 H 94 10/30/23 23:14 88 94 10/30/23 23:10 90 94 10/30/23 23:09 93 H 102/62 10/30/23 23:00 18 10/30/23 23:00 36.5 C 18 10/30/23 22:55 95 H 96 10/30/23 22:54 97 H 107/63 10/30/23 22:40 94 H 97 10/30/23 22:39 96 H 95/50 L 10/30/23 22:25 91 H 111/61 94 10/30/23 22:10 94 H 94 10/30/23 22:09 91 H 109/63 94 10/30/23 22:03 87 94 10/30/23 21:57 93 H 94 10/30/23 21:55 95 H 94 10/30/23 21:54 98 H 106/59 L 10/30/23 21:52 89 94 10/30/23 21:40 94 H 111/62 10/30/23 21:39 93 H 96 10/30/23 21:25 97 H 117/73 10/30/23 21:24 87 97 10/30/23 21:10 95 H 123/72 10/30/23 21:09 99 H 100 10/30/23 20:55 96 H 116/72 10/30/23 20:54 89 98 10/30/23 20:39 98 10/30/23 20:39 88 10/30/23 20:39 87 103/67 10/30/23 20:25 97 H 107/69 10/30/23 20:24 96 H 100 10/30/23 20:09 98 10/30/23 20:09 99 H 10/30/23 20:09 94 H 100/66 10/30/23 19:54 91 H 101/67 98 10/30/23 19:39 92 H 101/67 97 10/30/23 19:25 86 102/66 10/30/23 19:24 89 98 10/30/23 19:12 90 89 L 10/30/23 19:09 95 H 115/69 10/30/23 19:06 104 H 99 10/30/23 19:05 102 H 112/69 10/30/23 19:01 20 10/30/23 19:01 36.4 C L 20 10/30/23 19:01 98 10/30/23 19:01 97 H 10/30/23 19:01 98 H 115/71 10/30/23 19:00 18 10/30/23 18:56 95 H 99 10/30/23 18:53 95 H 109/65 10/30/23 18:51 92 H 110/67 99 10/30/23 18:49 93 H 112/69 10/30/23 18:47 93 H 116/68 10/30/23 18:46 104 H 98 10/30/23 18:45 94 H 116/67 10/30/23 18:43 100 H 118/65 10/30/23 18:41 96 H 99 10/30/23 18:40 90 123/71 10/30/23 18:36 96 H 98 10/30/23 18:31 104 H 96 10/30/23 18:29 101 H 87 L 10/30/23 18:26 99 10/30/23 18:26 109 H 10/30/23 18:26 114 H 137/91 10/30/23 17:00 36.8 C 20 10/30/23 17:00 82 118/78 10/30/23 16:02 90 110/74 10/30/23 15:11 82 101/57 L Pain Intensity Bilateral Back: Pain Intensity: 2 Transfer of Care Handoff Completed per policy Notes Mental Status: alert / awake / arousable Patient Amnestic to Procedure: No Nausea / Vomiting: adequately controlled Pain: adequately controlled Airway Patency, RR, SpO2: stable & adequate BP & HR: stable & adequate Hydration State: stable & adequate Neuraxial Anesthesia: was administered and sensory block is resolving Anesthetic Complications: no major complications apparent and Pt Satisfied with anesthetic care
[2023-10-31] MEDS ORDERED: NALOXONE HCL 0.4 MG/1 ML VIAL/CARP IV PRN (14:27)
[2023-10-31] MEDS ORDERED: HYDROmorphone Bolus from PCA IV PRN (14:27)
[2023-10-31] MEDS ORDERED: HYDROmorphone PCA 30 MG/30 ML IV PRN (14:27)
[2023-10-31] MEDS ORDERED: SODIUM CHLORIDE 0.9% 1,000 ML IV SCH (14:30)
[2023-10-31] MEDS ORDERED: MAGNESIUM HYDROXIDE SUSP 30 ML UDC PO PRN (14:40)
[2023-10-31] MEDS ORDERED: oxyCODONE/ACETAMINOPHEN 5mg/325mg TAB PO PRN (14:40)
[2023-10-31] MEDS ORDERED: ONDANSETRON INJ 2 MG/ML 2 ML VIAL IV PRN (14:40)
[2023-10-31] MEDS ORDERED: DIPHTHERIA/TETANUS/PERTUSSIS Vaccine (Tdap, Age 7+yrs) 0.5mL SYR/VL IM ONE (14:40)
[2023-10-31] MEDS ORDERED: PROMETHAZINE HCL 25 MG in SODIUM CHLORIDE 0.9% 50 ML IV PRN (14:40)
[2023-10-31] MEDS ORDERED: SENNA 8.6 MG TAB PO PRN (14:40)
[2023-10-31] MEDS ORDERED: MEPERIDINE HCL 50 MG/ML CARP IV PRN (14:40)
[2023-10-31] MEDS ORDERED: BENZOCAINE 20% SPRY 85 APPLN/85 GM CAN EXT PRN (14:40)
[2023-10-31] MEDS ORDERED: diphenhydrAMINE 50 MG/ML VIAL IV PRN (14:40)
[2023-10-31] MEDS ORDERED: HYDROCORTISONE ACETATE 25 MG SUPP PR PRN (14:40)
[2023-10-31] MEDS ORDERED: diphenhydrAMINE Capsule 25 MG CAP PO PRN (14:40)
--- NOTE | 2023-10-31 14:48 | Post Operative Brief Note ---
Immediate Post Op Note v1 Date of Surgery October 31, 2023 Pre & Post Diagnosis Operation Date: 10/31/23 15:00 Pre-Op Diagnosis: Failed Induction;Caesarean Section Upon Request Post-Op Diagnosis: Same; Delivery of a live baby girl at 1312 I identified the patient and participated in the time-out.: Yes Procedure Operation Date: 10/31/23 15:00 Actual Procedures p Section in LD(Bilateral) - Nawaf Huertas MD Surgeon Nawaf Huertas MD Home Dem[employer] Agent Dr. Cohen Estimated Blood Loss 500 Findings Consistent with Post-Op Diagnosis live female Apgars 8/9 weight pending Nuchal cord x1 Fluids LR 1200 ml. Specimens placenta Drains Pickens Catheter (100 ml.) Complications none Disposition Accompanied Patient To Recovery: Yes Overlapping Procedure I was present for: the critical portions of procedure. I was immediately available: during the entire case. Back up surgeon: used during listed procedure.
[2023-10-31] MEDS ORDERED: ACETAMINOPHEN 1,000 MG/100 ML VIAL IV STA (15:42)
[2023-10-31] MEDS: SIMETHICONE 80 MG CHEW PO SCH ×2 (17:51→20:01)
[2023-10-31] MEDS ORDERED: OXYTOCIN 20 UNITS in LACTATED RINGER'S 1,000 ML IV SCH ×2 (18:00→18:45)
[2023-10-31] MEDS: KETOROLAC 30 MG/ML VIAL IV PRN (20:02)
[2023-10-31] MEDS: DOCUSATE SODIUM 100 MG CAP PO SCH (21:21)
--- NOTE | 2023-11-01 01:30 | Operative Report ---
Post Operative Report Pre & Post Diagnosis Operation Date: 10/31/23 15:00 Pre-Op Diagnosis: Failed Induction;Caesarean Section Upon Request Post-Op Diagnosis: Same; Delivery of a live baby girl at 1312 I identified the patient and participated in the time-out.: Yes Procedure Operation Date: 10/31/23 15:00 Actual Procedures p Section in LD(Bilateral) - Nawaf Huertas MD Surgeon Nawaf Huertas MD Jacquard Loom Card Changer Dr. Cohen Estimated Blood Loss 500 Findings Consistent with Post-Op Diagnosis live female Apgars 8/9 nuchal cord x1 Fluids LR Specimens placenta Drains [place] Anesthesia Type Labor Epidural Complications none Disposition Accompanied Patient To Recovery: Yes Indications maternal request Description of Procedure A timeout was called the patient was identified she received preop antibiotics a timeout was complete. A low Pfannenstiel incision was then made entering into the abdominal cavity in successive layers without difficulty upon entering into the abdominal cavity bladder flap was then made the incision was made high up as a low transverse incision upon entering into the uterine cavity the incision was widened in the AP diameter the amniotic sac was noted to be clear the was then delivered from the fundal from the vertex presentation with the aid of fundal pressure. Delivering a live male female rather there was 1 minute cord delay the cord was wrapped around the baby's neck x 1 which was reduced at time of delivery of the head. Apgars were 8 and 9 weight is pending. Cord blood was obtained placenta was then delivered spontaneously and intact. Uterus was then exteriorized and cleaned of all clots and debris with a lap pad. The uterus was then closed with a double layer closure of 0 Vicryl suture in continuous interlocking fashion followed by a second imbricating suture of 0 Vicryl suture. Tubes ovaries bilaterally were found to be within normal limits. The initial sponge needle and instrument count were found to be correct. The patient's uterus was then placed back into the normal anatomical position. The fascia was then reapproximated from both ends using 0 Vicryl suture in a continuous fashion. The subcuticular space was irrigated and all bleeders were cauterized. The subcutaneous fat layer was then closed with 3-0 plain suture. The skin was then reapproximated with 4-0 Monocryl. A angelia dressing was then placed over the incision. Final sponge needle and instrument count were found to be correct. EBL 500 mL. The patient was then placed supine on a stretcher and she was taken to recovery room in stable condition. I attest to the content of the Intraoperative Record and any orders documented therein. Any exceptions are noted below. Please note that Dr. Costa was needed to provide assistance at retraction for exposure, fundal pressure to help deliver baby, closure of uterus and abdomen.
[2023-11-01] MEDS: KETOROLAC 30 MG/ML VIAL IV PRN ×2 (02:08→07:40)
[2023-11-01] MEDS ORDERED: OXYTOCIN 20 UNITS/LR 1,002 ML IV SCH (03:00)
[2023-11-01] MEDS ORDERED: OXYTOCIN 20 UNITS/LR 1,000 ML IV SCH (03:00)
[2023-11-01 08:53] LABS: Basophils # (auto) 0.06 K/uL (0.00-0.20); Basophils % (auto) 0.5 %; Eosinophils # (auto) 0.09 K/uL (0.00-0.50); Eosinophils % (auto) 0.8 %; Hematocrit (blood only) 32.2 % (37.0-47.0); Hemoglobin 10.4 g/dl (12.0-16.0); Immature Granulocytes # (auto) 0.07 K/uL (0.01-0.20); Immature Granulocytes % (auto) 0.6 %; Lymphocytes # (auto) 1.24 K/uL (1.20-3.40); Lymphocytes % (auto) 11.3 %; Mean Corpuscular Hemoglobin 26.7 pg (25.0-34.0); Mean Corpuscular Hgb Conc 32.3 g/dL (32.0-36.0); Mean Corpuscular Volume 82.6 fL (80.0-100.0); Mean Platelet Volume 10.3 fL (9.4-12.4); Monocytes # (auto) 0.71 K/uL (0.11-0.59); Monocytes % (auto) 6.5 %; Neutrophils # (auto) 8.82 K/uL (1.40-6.50); Neutrophils % (auto) 80.3 %; Platelet Count 263 K/uL (130-400); RDW Coefficient of Variation 14.6 % (11.5-14.5); White Blood Count 10.99 K/ul (4.8-10.8)
[2023-11-01] MEDS ORDERED: PRENATAL VITAMIN 1 TAB PO SCH (09:00)
--- NOTE | 2023-11-01 09:17 | Obstetrical Progress Note ---
Date of Service November 01, 2023 Assessment & Plan Admission and Anticipated Discharge Date Admission Date: October 29, 2023 Subjective Patient is seen and examined. She feels well, no complaints. Pain is under control with oral meds. Ambulating without dizziness. Voiding without difficulty Tolerating regular diet with out N&V Flatus + BM neg Bleeding is minimal No fever/ chills/ CP/ SOB/ N&V/ Leg pain Breast feeding without problems Vital Signs Temp Pulse Resp BP Pulse Ox O2 Del Method 11/01/23 05:56 14 98 11/01/23 04:05 36.7 C 83 16 123/78 Room Air 11/01/23 04:00 12 97 11/01/23 03:00 16 99 11/01/23 02:00 14 100 11/01/23 01:00 16 98 11/01/23 00:14 16 98 11/01/23 00:14 36.7 C 84 14 120/74 98 Room Air 10/31/23 23:00 18 100 10/31/23 22:08 18 100 10/31/23 21:20 16 98 Lab Results 10/29/23 10/29/23 10/29/23 Range/Units 08:12 08:15 10:07 WBC 13.15 H (4.8-10.8) K/ul RBC 4.39 (4.20-5.40) M/uL Hgb 11.7 L (12.0-16.0) g/dl Hct 36.7 L (37.0-47.0) % MCV 83.6 (80.0-100.0) fL MCH 26.7 (25.0-34.0) pg MCHC 31.9 L (32.0-36.0) g/dL RDW Std Deviation 42.7 (36.4-46.3) fL RDW Coeff of Josesito 14.2 (11.5-14.5) % Plt Count 328 (130-400) K/uL MPV 10.8 (9.4-12.4) fL Immature Gran % (Auto) % Neut % (Auto) % Lymph % (Auto) % [place] % (Auto) % Eos % (Auto) % Baso % (Auto) % Neut # (Auto) (1.40-6.50) K/uL Lymph # (Auto) (1.20-3.40) K/uL [place] # (Auto) (0.11-0.59) K/uL Eos # (Auto) (0.00-0.50) K/uL Baso # (Auto) (0.00-0.20) K/uL Immature Gran # (Auto) (0.01-0.20) K/uL Sodium 136 (136-145) mmol/L Potassium 3.8 (3.5-5.1) mmol/L Chloride 106 (98-107) mmol/L Carbon Dioxide 22 (21-32) mmol/L Anion Gap 8 (3-11) BUN 10 (6-23) mg/dl Creatinine 0.43 L (0.6-1.2) mg/dl Est Cr Clr Drug Dosing 259.9 ml/min Est GFR ( Amer) > 150.0 ml/min Est GFR (Non-Af Amer) 140.4 ml/min BUN/Creatinine Ratio 23.3 H (10-20) Glucose 92 (70-99(Fasting)) mg/dl Calcium 9.4 (8.6-10.3) mg/dl Total Bilirubin 0.2 (0.2-1.0) mg/dl Direct Bilirubin 0.0 (0-0.2) mg/dl AST 13 (13-39) U/L ALT 8 (7-52) U/L Alkaline Phosphatase 107 H (34-104) U/L Total Protein 6.7 (6.0-8.3) gm/dl Albumin 3.3 L (3.4-5.0) gm/dl Globulin 3.4 (2.5-4.0) gm/dl Albumin/Globulin Ratio 1.0 (0.9-2) Ur Random Creatinine mg/dl U Random Total Protein (0-11.9) mg/dl Protein/Creatinin Ratio (0-0.2) Blood Type A Positive Antibody Screen NEGATIVE 10/29/23 10/31/23 11/01/23 Range/Units 10:30 06:27 08:24 WBC 14.57 H 10.99 H (4.8-10.8) K/ul RBC 4.28 3.90 L (4.20-5.40) M/uL Hgb 11.4 L 10.4 L (12.0-16.0) g/dl Hct 35.5 L 32.2 L (37.0-47.0) % MCV 82.9 82.6 (80.0-100.0) fL MCH 26.6 26.7 (25.0-34.0) pg MCHC 32.1 32.3 (32.0-36.0) g/dL RDW Std Deviation 42.4 43.0 (36.4-46.3) fL RDW Coeff of [place]oses[place] 14.3 14.6 H (11.5-14.5) % Plt Count 320 263 (130-400) K/uL MPV 10.3 10.3 (9.4-12.4) fL Immature Gran % (Auto) 0.8 0.6 % Neut % (Auto) 80.6 80.3 % Lymph % (Auto) 12.6 11.3 % [place] % (Auto) 5.2 6.5 % Eos % (Auto) 0.5 0.8 % Baso % (Auto) 0.3 0.5 % Neut # (Auto) 11.74 H 8.82 H (1.40-6.50) K/uL Lymph # (Auto) 1.84 1.24 (1.20-3.40) K/uL [place] # (Auto) 0.76 H 0.71 H (0.11-0.59) K/uL Eos # (Auto) 0.07 0.09 (0.00-0.50) K/uL Baso # (Auto) 0.05 0.06 (0.00-0.20) K/uL Immature Gran # (Auto) 0.11 0.07 (0.01-0.20) K/uL Sodium 137 (136-145) mmol/L Potassium 3.5 (3.5-5.1) mmol/L Chloride 107 (98-107) mmol/L Carbon Dioxide 22 (21-32) mmol/L Anion Gap 8 (3-11) BUN 8 (6-23) mg/dl Creatinine 0.47 L (0.6-1.2) mg/dl Est Cr Clr Drug Dosing 237.8 ml/min Est GFR ( Amer) > 150.0 ml/min Est GFR (Non-Af Amer) 136.3 ml/min BUN/Creatinine Ratio 17.0 (10-20) Glucose 97 (70-99(Fasting)) mg/dl Calcium 8.6 (8.6-10.3) mg/dl Total Bilirubin 0.4 (0.2-1.0) mg/dl Direct Bilirubin (0-0.2) mg/dl AST 10 L (13-39) U/L ALT 6 L (7-52) U/L Alkaline Phosphatase 95 (34-104) U/L Total Protein 6.1 (6.0-8.3) gm/dl Albumin 3.0 L (3.4-5.0) gm/dl Globulin 3.1 (2.5-4.0) gm/dl Albumin/Globulin Ratio 1.0 (0.9-2) Ur Random Creatinine 77.7 mg/dl U Random Total Protein 12.4 H (0-11.9) mg/dl Protein/Creatinin Ratio 0.2 (0-0.2) Blood Type Antibody Screen PE: General: Alert, orientedx3, NAD CVS: S1S2 RRR Lungs; CTAB Abd: soft, NT, ND, BS+, fundus firm, below Umbilicus Incision/JENNIFER dressing: Clean, dry, intact Perineum intact, Lochia rubra minimal Ext; NT, no edema AP: 28 yo s/p C Section, pod# 1 VSS Afebrile doing well Continue routine postop care Encourage ambulation, PO intake All questions were answered Results & Data Vital Signs (Past 12 Hours) Vital Signs Temp Pulse Resp BP Pulse Ox O2 Del Method 11/01/23 05:56 14 98 11/01/23 04:05 36.7 C 83 16 123/78 Room Air 11/01/23 04:00 12 97 11/01/23 03:00 16 99 11/01/23 02:00 14 100 11/01/23 01:00 16 98 11/01/23 00:14 16 98 11/01/23 00:14 36.7 C 84 14 120/74 98 Room Air 10/31/23 23:00 18 100 10/31/23 22:08 18 100 10/31/23 21:20 16 98
[2023-11-01] MEDS: SIMETHICONE 80 MG CHEW PO SCH ×4 (09:27→20:42)
[2023-11-01] MEDS: PRENATAL VITAMIN 1 TAB PO SCH (09:27)
[2023-11-01] MEDS: FERROUS SULFATE 325 MG TAB PO SCH (09:27)
[2023-11-01] MEDS: DOCUSATE SODIUM 100 MG CAP PO SCH ×2 (09:27→20:42)
[2023-11-01] MEDS: FAMOTIDINE 20 MG TAB PO SCH (09:28)
[2023-11-01] MEDS: oxyCODONE/ACETAMINOPHEN 5mg/325mg TAB PO PRN ×3 (11:47→20:47)
[2023-11-01] MEDS: IBUPROFEN 600 MG TAB PO PRN ×3 (11:48→20:46)
[2023-11-01] MEDS ORDERED: bisacodyL 5 MG TABEC PO SCH (20:00)
[2023-11-02] MEDS: oxyCODONE/ACETAMINOPHEN 5mg/325mg TAB PO PRN ×2 (05:11→10:06)
[2023-11-02] MEDS: IBUPROFEN 600 MG TAB PO PRN ×2 (05:11→10:06)
[2023-11-02 07:12] LABS: Hematocrit (blood only) 32.7 % (37.0-47.0); Hemoglobin 10.7 g/dl (12.0-16.0)
[2023-11-02] MEDS: DOCUSATE SODIUM 100 MG CAP PO SCH (07:41)
[2023-11-02] MEDS: PRENATAL VITAMIN 1 TAB PO SCH (07:41)
[2023-11-02] MEDS: FERROUS SULFATE 325 MG TAB PO SCH (07:41)
[2023-11-02] MEDS: SIMETHICONE 80 MG CHEW PO SCH ×2 (07:41→14:08)
--- NOTE | 2023-11-02 11:05 | Obstetrical Progress Note ---
Date of Service November 02, 2023 Assessment & Plan Admission and Anticipated Discharge Date Admission Date: October 29, 2023 Subjective Patient is seen and examined. She feels well, no complaints. Pain is under control with oral meds. Ambulating without dizziness Voiding without difficulty Tolerating regular diet with out N&V Flatus + BM + Bleeding is minimal No fever/ chills/ CP/ SOB/ N&V/ Leg pain Breast and bottle feeding without problems Vital Signs Temp Pulse Resp BP O2 Del Method 11/02/23 07:50 36.8 C 79 16 113/74 Room Air 11/02/23 01:00 36.6 C 96 H 16 119/77 Room Air Lab Results 10/29/23 10/29/23 10/29/23 Range/Units 08:12 08:15 10:07 WBC 13.15 H (4.8-10.8) K/ul RBC 4.39 (4.20-5.40) M/uL Hgb 11.7 L (12.0-16.0) g/dl Hct 36.7 L (37.0-47.0) % MCV 83.6 (80.0-100.0) fL MCH 26.7 (25.0-34.0) pg MCHC 31.9 L (32.0-36.0) g/dL RDW Std Deviation 42.7 (36.4-46.3) fL RDW Coeff of Josesito 14.2 (11.5-14.5) % Plt Count 328 (130-400) K/uL MPV 10.8 (9.4-12.4) fL Immature Gran % (Auto) % Neut % (Auto) % Lymph % (Auto) % [place] % (Auto) % Eos % (Auto) % Baso % (Auto) % Neut # (Auto) (1.40-6.50) K/uL Lymph # (Auto) (1.20-3.40) K/uL [place] # (Auto) (0.11-0.59) K/uL Eos # (Auto) (0.00-0.50) K/uL Baso # (Auto) (0.00-0.20) K/uL Immature Gran # (Auto) (0.01-0.20) K/uL Sodium 136 (136-145) mmol/L Potassium 3.8 (3.5-5.1) mmol/L Chloride 106 (98-107) mmol/L Carbon Dioxide 22 (21-32) mmol/L Anion Gap 8 (3-11) BUN 10 (6-23) mg/dl Creatinine 0.43 L (0.6-1.2) mg/dl Est Cr Clr Drug Dosing 259.9 ml/min Est GFR ( Amer) > 150.0 ml/min Est GFR (Non-Af Amer) 140.4 ml/min BUN/Creatinine Ratio 23.3 H (10-20) Glucose 92 (70-99(Fasting)) mg/dl Calcium 9.4 (8.6-10.3) mg/dl Total Bilirubin 0.2 (0.2-1.0) mg/dl Direct Bilirubin 0.0 (0-0.2) mg/dl AST 13 (13-39) U/L ALT 8 (7-52) U/L Alkaline Phosphatase 107 H (34-104) U/L Total Protein 6.7 (6.0-8.3) gm/dl Albumin 3.3 L (3.4-5.0) gm/dl Globulin 3.4 (2.5-4.0) gm/dl Albumin/Globulin Ratio 1.0 (0.9-2) Ur Random Creatinine mg/dl U Random Total Protein (0-11.9) mg/dl Protein/Creatinin Ratio (0-0.2) Blood Type A Positive Antibody Screen NEGATIVE 10/29/23 10/31/23 11/01/23 Range/Units 10:30 06:27 08:24 WBC 14.57 H 10.99 H (4.8-10.8) K/ul RBC 4.28 3.90 L (4.20-5.40) M/uL Hgb 11.4 L 10.4 L (12.0-16.0) g/dl Hct 35.5 L 32.2 L (37.0-47.0) % MCV 82.9 82.6 (80.0-100.0) fL MCH 26.6 26.7 (25.0-34.0) pg MCHC 32.1 32.3 (32.0-36.0) g/dL RDW Std Deviation 42.4 43.0 (36.4-46.3) fL RDW Coeff of [place]osesito 14.3 14.6 H (11.5-14.5) % Plt Count 320 263 (130-400) K/uL MPV 10.3 10.3 (9.4-12.4) fL Immature Gran % (Auto) 0.8 0.6 % Neut % (Auto) 80.6 80.3 % Lymph % (Auto) 12.6 11.3 % [place] % (Auto) 5.2 6.5 % Eos % (Auto) 0.5 0.8 % Baso % (Auto) 0.3 0.5 % Neut # (Auto) 11.74 H 8.82 H (1.40-6.50) K/uL Lymph # (Auto) 1.84 1.24 (1.20-3.40) K/uL [place] # (Auto) 0.76 H 0.71 H (0.11-0.59) K/uL Eos # (Auto) 0.07 0.09 (0.00-0.50) K/uL Baso # (Auto) 0.05 0.06 (0.00-0.20) K/uL Immature Gran # (Auto) 0.11 0.07 (0.01-0.20) K/uL Sodium 137 (136-145) mmol/L Potassium 3.5 (3.5-5.1) mmol/L Chloride 107 (98-107) mmol/L Carbon Dioxide 22 (21-32) mmol/L Anion Gap 8 (3-11) BUN 8 (6-23) mg/dl Creatinine 0.47 L (0.6-1.2) mg/dl Est Cr Clr Drug Dosing 237.8 ml/min Est GFR ( Amer) > 150.0 ml/min Est GFR (Non-Af Amer) 136.3 ml/min BUN/Creatinine Ratio 17.0 (10-20) Glucose 97 (70-99(Fasting)) mg/dl Calcium 8.6 (8.6-10.3) mg/dl Total Bilirubin 0.4 (0.2-1.0) mg/dl Direct Bilirubin (0-0.2) mg/dl AST 10 L (13-39) U/L ALT 6 L (7-52) U/L Alkaline Phosphatase 95 (34-104) U/L Total Protein 6.1 (6.0-8.3) gm/dl Albumin 3.0 L (3.4-5.0) gm/dl Globulin 3.1 (2.5-4.0) gm/dl Albumin/Globulin Ratio 1.0 (0.9-2) Ur Random Creatinine 77.7 mg/dl U Random Total Protein 12.4 H (0-11.9) mg/dl Protein/Creatinin Ratio 0.2 (0-0.2) Blood Type Antibody Screen 11/02/23 Range/Units 06:39 WBC (4.8-10.8) K/ul RBC (4.20-5.40) M/uL Hgb 10.7 L (12.0-16.0) g/dl Hct 32.7 L (37.0-47.0) % MCV (80.0-100.0) fL MCH (25.0-34.0) pg MCHC (32.0-36.0) g/dL RDW Std Deviation (36.4-46.3) fL RDW Coeff of [place]oses[place] (11.5-14.5) % Plt Count (130-400) K/uL MPV (9.4-12.4) fL Immature Gran % (Auto) % Neut % (Auto) % Lymph % (Auto) % [place] % (Auto) % Eos % (Auto) % Baso % (Auto) % Neut # (Auto) (1.40-6.50) K/uL Lymph # (Auto) (1.20-3.40) K/uL [place] # (Auto) (0.11-0.59) K/uL Eos # (Auto) (0.00-0.50) K/uL Baso # (Auto) (0.00-0.20) K/uL Immature Gran # (Auto) (0.01-0.20) K/uL Sodium (136-145) mmol/L Potassium (3.5-5.1) mmol/L Chloride (98-107) mmol/L Carbon Dioxide (21-32) mmol/L Anion Gap (3-11) BUN (6-23) mg/dl Creatinine (0.6-1.2) mg/dl Est Cr Clr Drug Dosing ml/min Est GFR ( Amer) ml/min Est GFR (Non-Af Amer) ml/min BUN/Creatinine Ratio (10-20) Glucose (70-99(Fasting)) mg/dl Calcium (8.6-10.3) mg/dl Total Bilirubin (0.2-1.0) mg/dl Direct Bilirubin (0-0.2) mg/dl AST (13-39) U/L ALT (7-52) U/L Alkaline Phosphatase (34-104) U/L Total Protein (6.0-8.3) gm/dl Albumin (3.4-5.0) gm/dl Globulin (2.5-4.0) gm/dl Albumin/Globulin Ratio (0.9-2) Ur Random Creatinine mg/dl U Random Total Protein (0-11.9) mg/dl Protein/Creatinin Ratio (0-0.2) Blood Type Antibody Screen PE: General: Alert, orientedx3, NAD CVS: S1S2 RRR Lungs; CTAB Abd: soft, NT, ND, BS+, fundus firm, below Umbilicus Incision/ JENNIFER Dressing: Clean, dry, intact Perineum intact, Lochia rubra minimal Ext; NT, no edema AP: 28 yo s/p C Section, pod# 2 VSS Afebrile doing well Continue routine postop care Encourage ambulation, PO intake All questions were answered D/C home , f/u in office Results & Data Vital Signs (Past 12 Hours) Vital Signs Temp Pulse Resp BP O2 Del Method 11/02/23 07:50 36.8 C 79 16 113/74 Room Air 11/02/23 01:00 36.6 C 96 H 16 119/77 Room Air
[2023-11-02] MEDS: FAMOTIDINE 20 MG TAB PO SCH (11:16)
[2023-11-02] MEDS ORDERED: bisacodyL 10 MG SUPP PR PRN (14:24)
== END 2023-11-02 14:00 | disposition home or self-care (01) | DRG 788 ==
LOC: 4S1 07:30 → 4E2 10-31 17:57